=== PATIENT | male | born 1935 | race African-American/Black ===

== ENCOUNTER 2016-10-09 17:35 | Inpatient (IN) | payer MEDICARE, OTHER ==
[2016-10-09 20:14] LABS: Hematocrit 47 % (42-52); Hemoglobin 15.6 g/dl (14.0-18.0); Mean Corpuscular HGB Conc 33 g/dl (31-36); Mean Corpuscular Hemoglobin 32 pg (27-31); Mean Corpuscular Volume 98 fL (80-94); Mean Platelet Volume 8 um3 (7.4-10.4); Red Blood Count 4.83 10^6/ul (4.0-5.4); Red Cell Distribution Width 23 % (10.5-15); White Blood Count 6.3 10^3/ul (3.5-10.8)
[2016-10-09 20:15] LABS: Comments Flag Yes
[2016-10-09 20:16] LABS: Add Diff/Slide Review? Slide Review Added
[2016-10-09] MEDS: NS 0.9% 1000 ML* 1,000 ML IV ONE (20:21)
[2016-10-09 20:28] LABS: ALT 9 U/L (7-52); Albumin 2.3 g/dL (3.2-5.2); Alkaline Phosphatase 68 U/L (34-104); BUN/Creatinine Ratio 13.3 (8-20); Blood Urea Nitrogen 15 mg/dL (6-24); C Reactive Protein 9.76 mg/L (< 5.00); CO2 Carbon Dioxide 21 mmol/L (22-32); Chloride 106 mmol/L (101-111); EGFR African American 80.3 (>60); EGFR Non-African American 62.4 (>60); Globulin 3.5 g/dL (2-4); Glucose 115 mg/dL (70-100); Lipase < 10 U/L (11.0-82.0); Sodium 134 mmol/L (133-145); Total Protein 5.8 g/dL (6.4-8.9); Troponin I 0.01 ng/mL (<0.04)
--- NOTE | 2016-10-09 21:23 | RAD ---
INDICATION: Abdominal pain. COMPARISON: Comparison is made with a prior chest x-ray study from July 21, 2016. TECHNIQUE: A portable view of the chest was obtained. FINDINGS: Cardiac and mediastinal contours appear to be within normal limits. There is a power port central venous catheter present on the right side. The catheter tip projects overlying the superior vena cava. There are numerous bilateral pulmonary nodules which have increased in size and number from the prior study. There has been resolution of the previously noted trace left pleural effusion. IMPRESSION: MULTIPLE BILATERAL PULMONARY NODULES INCREASED IN SIZE FROM THE PRIOR STUDY.
[2016-10-09] MEDS ORDERED: Iohexol 300* (CONTRAST) 10 ML SDV IV ONE (22:04)
[2016-10-10] MEDS ORDERED: NS 0.9% 1000 ML* 1,000 ML IV SCH ×2 (00:45→09:45)
[2016-10-10 00:56] LABS: Magnesium 1.6 mg/dL (1.9-2.7)
[2016-10-10 00:57] LABS: Urine Bacteria Absent (Absent); Urine Bilirubin Negative (Negative); Urine Glucose Negative (Negative); Urine Nitrite Negative (Negative)
--- NOTE | 2016-10-10 01:05 | ED ---
rocio Le Timothy, scribed for Denny Martinez on 10/09/16 at 1945 . Abdominal Pain/Male - HPI Summary HPI Summary: Nathan Lerner Jr, is an 80 yo male presenting to [facility] with 4/10 lower abdominal pain for the past week. Pt has a Hx of abdominal hernia and also c/o 10 lb. weight loss over the past 10 days. He is c/o loss of appetite as well. 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 Pt is passing excessive gas, but had diarrhea today, which is his baseline. Pt also complains of penile meatus inflammation since the beginning of August, and congested cough. He states his diarrhea is not as bad when he lies on his left side. Pt is on xerelto. Pt states he noticed he had constant diarrhea and weakness since his hospital visit in late august. His MHx includes inguinal hernia repair 2013, Afib, diuretic use, HTN, cardioversion . Surgery performed 04/2015. Last chemotherapy was on 09/09/16, and was 8 grams. His cancer is being followed up in [place] and in [place]. - History of Current Complaint Chief Complaint: Nicole Stated Complaint: GROIN PAIN, UNABLE TO EAT Time Seen by Provider: 10/09/16 19:48 Hx Obtained From: Patient Onset/Duration: Sudden Onset, Lasting Hours, Still Present Timing: Constant Severity Initially: Moderate Severity Currently: Moderate Pain Intensity: 4 Pain Scale Used: 0-10 Numeric Location: Diffuse - lower Radiates: No Alleviating Factor(s): Position - left hand side lying down Associated Signs And Symptoms: Positive: Cough, Decreased Appetite, Diarrhea, Other - gas, penile meatus inflammation, weight loss ( 1lb. per day for 10 days) - Allergies/Home Medications Allergies/Adverse Reactions: Allergies Allergy/AdvReac Type Severity Reaction Status Date / Time Dofetilide [From Tikosyn] AdvReac Severe See Comment Verified 10/10/16 00:06 PMH/Surg Hx/FS Hx/Imm Hx Endocrine/Hematology History: Reports: Hx Anticoagulant Therapy - XARELTO, Hx Anemia - iron deficiency Denies: Hx Diabetes, Hx Thyroid Disease, Hx Unexplained Bleeding Cardiovascular History: Reports: Hx Congestive Heart Failure - ACUTE DIASTOLIC CHF, Hx Hypertension, Other Cardiovascular Problems/Disorders - a-fib, cardiac arrhythmia Denies: Hx Deep Vein Thrombosis, Hx Hypercholesterolemia, Hx Myocardial Infarction, Hx Pacemaker/ICD, Hx Peripheral Vascular Disease Respiratory History: Reports: Hx Lung Cancer, Hx Pneumonia, Other Respiratory Problems/Disorders - PNA Denies: Hx Asthma, Hx Chronic Obstructive Pulmonary Disease (COPD), Hx Pulmonary Embolism GI History: Reports: Hx Diverticulosis, Hx Obstructive Bowel Denies: Hx Gall Bladder Disease, Hx Gastroesophageal Reflux Disease, Hx Gastrointestinal Bleed, Hx Ulcer, Hx Urosepsis History: Reports: Hx Benign Prostatic Hyperplasia Denies: Hx Kidney Stones, Hx Renal Disease Musculoskeletal History: Reports: Hx Tendonitis - 1978 ACHILLES TENDONITIS - NO PROBLEMS NOW Denies: Hx Arthritis, Hx Osteoporosis Sensory History: Reports: Hx Contacts or Glasses Denies: Hx Cataracts, Hx Glaucoma, Hx Hearing Aid, Hx Hearing Problem Opthamlomology History: Reports: Hx Contacts or Glasses Denies: Hx Cataracts, Hx Glaucoma Neurological History: Denies: Hx Dementia, Hx Headaches, Hx Migraine, Hx Seizures, Hx Transient Ischemic Attacks (TIA) Psychiatric History: Denies: Hx Anxiety, Hx Depression, Hx Schizophrenia, Hx Bipolar Disorder - Cancer History Cancer Type, Location and Year: Small bowel 04/2015 Hx Chemotherapy: Yes - Surgical History Surgery Procedure, Year, and Place: Osteoma removed 1953 RIGHT [facility]. LEFT INGUINAL REPAIR W/MESH. 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 ERCP with biliary sphincterotomy and stent 11/29/2015. Right inguinal hernia repair 08/2015 Hx Anesthesia Reactions: No Infectious Disease History: No Infectious Disease History: Reports: Hx Shingles Denies: Hx Hepatitis, Hx Human Immunodeficiency Virus (HIV), Traveled Outside the [place] in Last 30 Days - Family History Known Family History: Positive: Hypertension Negative: Cardiac Disease, Diabetes Family History: FHx of CVA - Social History Alcohol Use: None Substance Use Type: Reports: None Hx Tobacco Use: No Smoking Status (MU): Never Smoked Tobacco Amount Used/How Often: - PIPE AND CIGAR Have You Smoked in the Last Year: No Review of Systems Constitutional: Negative Eyes: Negative ENT: Negative Cardiovascular: Negative Positive: Cough - congested Positive: Abdominal Pain, Diarrhea - baseline, Other - loss of appetite, weight loss Genitourinary: Other - penile meatus inflammation Musculoskeletal: Negative Skin: Negative Neurological: Negative Psychological: Normal All Other Systems Reviewed And Are Negative: Yes Physical Exam Triage Information Reviewed: Yes Vital Signs On Initial Exam: Initial Vitals Temp Pulse Resp BP Pulse Ox 98.9 F 78 20 143/96 100 10/09/16 17:44 10/09/16 17:44 10/09/16 17:44 10/09/16 17:44 10/09/16 17:44 Vital Signs Reviewed: Yes Appearance: Positive: Well-Appearing, No Pain Distress, Well-Nourished Skin: Positive: Warm, Skin Color Reflects Adequate Perfusion, Dry Head/Face: Positive: Normal Head/Face Inspection Eyes: Positive: EOMI, NATI ENT: Positive: Normal ENT inspection Neck: Positive: Supple, Nontender Respiratory/Lung Sounds: Positive: Clear to Auscultation, Breath Sounds Present Cardiovascular: Positive: RRR, Pulses are Symmetrical in both Upper and Lower Extremities Abdomen Description: Positive: Soft. Negative: Nontender - diffuse abdominal tenderness Bowel Sounds: Positive: Present Musculoskeletal: Positive: Normal, Strength/ROM Intact Neurological: Positive: Normal, Sensory/Motor Intact, Alert, Oriented to Person Place, Time Psychiatric: Positive: Normal Diagnostics - Vital Signs Vital Signs Temp Pulse Resp BP Pulse Ox 10/09/16 19:33 97.9 F 75 16 130/90 100 10/09/16 18:37 98.7 F 75 16 141/84 100 10/09/16 17:44 98.9 F 78 20 143/96 100 - Laboratory Lab Results: Lab Results 10/09/16 10/09/16 10/09/16 Range/Units 20:05 20:05 20:05 WBC 6.3 (3.5-10.8) 10^3/ul RBC 4.83 (4.0-5.4) 10^6/ul Hgb 15.6 (14.0-18.0) g/dl Hct 47 (42-52) % MCV 98 H (80-94) fL MCH 32 H (27-31) pg MCHC 33 (31-36) g/dl RDW 23 H (10.5-15) % Plt Count 284 (150-450) 10^3/ul MPV 8 (7.4-10.4) um3 Neut % (Auto) 56.0 (38-83) % Lymph % (Auto) 22.6 L (25-47) % Concho % (Auto) 14.3 H (1-9) % Eos % (Auto) 6.8 H (0-6) % Baso % (Auto) 0.3 (0-2) % Absolute Neuts (auto) 3.5 (1.5-7.7) 10^3/ul Absolute Lymphs (auto) 1.4 (1.0-4.8) 10^3/ul Absolute Monos (auto) 0.9 H (0-0.8) 10^3/ul Absolute Eos (auto) 0.4 (0-0.6) 10^3/ul Absolute Basos (auto) 0 (0-0.2) 10^3/ul Absolute Nucleated RBC 0.01 10^3/ul Nucleated RBC % 0.1 INR (Anticoag Therapy) 1.47 H (0.89-1.11) APTT 26.3 (26.0-36.3) seconds Sodium 134 (133-145) mmol/L Potassium TNP Chloride 106 (101-111) mmol/L Carbon Dioxide 21 L (22-32) mmol/L Anion Gap TNP BUN 15 (6-24) mg/dL Creatinine 1.13 (0.67-1.17) mg/dL Est GFR ( Amer) 80.3 (>60) Est GFR (Non-Af Amer) 62.4 (>60) BUN/Creatinine Ratio 13.3 (8-20) Glucose 115 H (70-100) mg/dL Lactic Acid (0.5-2.0) mmol/L Calcium 8.0 L (8.6-10.3) mg/dL Magnesium TNP Total Bilirubin 0.40 (0.2-1.0) mg/dL AST TNP ALT 9 (7-52) U/L Alkaline Phosphatase 68 (34-104) U/L Troponin I 0.01 (<0.04) ng/mL C-Reactive Protein 9.76 H (< 5.00) mg/L B-Natriuretic Peptide ( - 100) pg/mL Total Protein 5.8 L (6.4-8.9) g/dL Albumin 2.3 L (3.2-5.2) g/dL Globulin 3.5 (2-4) g/dL Albumin/Globulin Ratio 0.7 L (1-3) Lipase < 10 L (11.0-82.0) U/L Urine Color Urine Appearance Urine pH (5-9) Ur Specific [place] (1.010-1.030) Urine Protein (Negative) Urine Ketones (Negative) Urine Blood (Negative) Urine Nitrate (Negative) Urine Bilirubin (Negative) Urine Urobilinogen (Negative) Ur Leukocyte Esterase (Negative) Urine WBC (Auto) (Absent) Urine RBC (Auto) (Absent) Ur Squamous Epith Cells (Absent) Urine Bacteria (Absent) Hyaline Casts (Absent) Urine Glucose (Negative) Urine Ascorbic Acid (Negative) 10/09/16 10/09/16 10/10/16 Range/Units 20:05 20:05 00:10 WBC (3.5-10.8) 10^3/ul RBC (4.0-5.4) 10^6/ul Hgb (14.0-18.0) g/dl Hct (42-52) % MCV (80-94) fL MCH (27-31) pg MCHC (31-36) g/dl RDW (10.5-15) % Plt Count (150-450) 10^3/ul MPV (7.4-10.4) um3 Neut % (Auto) (38-83) % Lymph % (Auto) (25-47) % Concho % (Auto) (1-9) % Eos % (Auto) (0-6) % Baso % (Auto) (0-2) % Absolute Neuts (auto) (1.5-7.7) 10^3/ul Absolute Lymphs (auto) (1.0-4.8) 10^3/ul Absolute Monos (auto) (0-0.8) 10^3/ul Absolute Eos (auto) (0-0.6) 10^3/ul Absolute Basos (auto) (0-0.2) 10^3/ul Absolute Nucleated RBC 10^3/ul Nucleated RBC % INR (Anticoag Therapy) (0.89-1.11) APTT (26.0-36.3) seconds Sodium (133-145) mmol/L Potassium 3.6 Chloride (101-111) mmol/L Carbon Dioxide (22-32) mmol/L Anion Gap BUN (6-24) mg/dL Creatinine (0.67-1.17) mg/dL Est GFR ( Amer) (>60) Est GFR (Non-Af Amer) (>60) BUN/Creatinine Ratio (8-20) Glucose (70-100) mg/dL Lactic Acid 1.9 (0.5-2.0) mmol/L Calcium (8.6-10.3) mg/dL Magnesium 1.6 L Total Bilirubin (0.2-1.0) mg/dL AST 20 ALT (7-52) U/L Alkaline Phosphatase (34-104) U/L Troponin I (<0.04) ng/mL C-Reactive Protein (< 5.00) mg/L B-Natriuretic Peptide 50 ( - 100) pg/mL Total Protein (6.4-8.9) g/dL Albumin (3.2-5.2) g/dL Globulin (2-4) g/dL Albumin/Globulin Ratio (1-3) Lipase (11.0-82.0) U/L Urine Color Urine Appearance Urine pH (5-9) Ur Specific [place] (1.010-1.030) Urine Protein (Negative) Urine Ketones (Negative) Urine Blood (Negative) Urine Nitrate (Negative) Urine Bilirubin (Negative) Urine Urobilinogen (Negative) Ur Leukocyte Esterase (Negative) Urine WBC (Auto) (Absent) Urine RBC (Auto) (Absent) Ur Squamous Epith Cells (Absent) Urine Bacteria (Absent) Hyaline Casts (Absent) Urine Glucose (Negative) Urine Ascorbic Acid (Negative) 10/10/16 Range/Units 00:25 WBC (3.5-10.8) 10^3/ul RBC (4.0-5.4) 10^6/ul Hgb (14.0-18.0) g/dl Hct (42-52) % MCV (80-94) fL MCH (27-31) pg MCHC (31-36) g/dl RDW (10.5-15) % Plt Count (150-450) 10^3/ul MPV (7.4-10.4) um3 Neut % (Auto) (38-83) % Lymph % (Auto) (25-47) % Concho % (Auto) (1-9) % Eos % (Auto) (0-6) % Baso % (Auto) (0-2) % Absolute Neuts (auto) (1.5-7.7) 10^3/ul Absolute Lymphs (auto) (1.0-4.8) 10^3/ul Absolute Monos (auto) (0-0.8) 10^3/ul Absolute Eos (auto) (0-0.6) 10^3/ul Absolute Basos (auto) (0-0.2) 10^3/ul Absolute Nucleated RBC 10^3/ul Nucleated RBC % INR (Anticoag Therapy) (0.89-1.11) APTT (26.0-36.3) seconds Sodium (133-145) mmol/L Potassium Chloride (101-111) mmol/L Carbon Dioxide (22-32) mmol/L Anion Gap BUN (6-24) mg/dL Creatinine (0.67-1.17) mg/dL Est GFR ( Amer) (>60) Est GFR (Non-Af Amer) (>60) BUN/Creatinine Ratio (8-20) Glucose (70-100) mg/dL Lactic Acid (0.5-2.0) mmol/L Calcium (8.6-10.3) mg/dL Magnesium Total Bilirubin (0.2-1.0) mg/dL AST ALT (7-52) U/L Alkaline Phosphatase (34-104) U/L Troponin I (<0.04) ng/mL C-Reactive Protein (< 5.00) mg/L B-Natriuretic Peptide ( - 100) pg/mL Total Protein (6.4-8.9) g/dL Albumin (3.2-5.2) g/dL Globulin (2-4) g/dL Albumin/Globulin Ratio (1-3) Lipase (11.0-82.0) U/L Urine Color Yellow Urine Appearance Clear Urine pH 5.0 (5-9) Ur Specific [place] 1.020 (1.010-1.030) Urine Protein 1+(30 mg/dl) H (Negative) Urine Ketones Negative (Negative) Urine Blood Negative (Negative) Urine Nitrate Negative (Negative) Urine Bilirubin Negative (Negative) Urine Urobilinogen Negative (Negative) Ur Leukocyte Esterase Negative (Negative) Urine WBC (Auto) Trace(0-5/hpf) (Absent) Urine RBC (Auto) Trace(0-2/hpf) (Absent) Ur Squamous Epith Cells Present H (Absent) Urine Bacteria Absent (Absent) Hyaline Casts Present H (Absent) Urine Glucose Negative (Negative) Urine Ascorbic Acid * H (Negative) Result Diagrams: 10/09/16 20:05 10/10/16 00:10 Lab Statement: Any lab studies that have been ordered have been reviewed, and results considered in the medical decision making process. - Radiology CXR Xray Interpretation: Positive (See Comments) - IMPRESSION: MULTIPLE BILATERAL PULMONARY NODULES INCREASED IN SIZE FROM THE PRIOR STUDY. Radiology Interpretation Completed By: Radiologist - CT A/P CT Interpretation: Positive (See Comments) - Thickened distal and terminal ileum and additional loops of moderately thickened bilateral lower quadrant small bowel, probably infectious or inflammatory enteritis. No pneumatosis, but ischemic enteritis not excluded; correlate clinically. Nonthickened, nondilated short segment of transverse colon projecting into left periumbilical hernia. No bowel obstruction, colitis, or free air. Normal appendix. Small bilateral pleural effusions resolved since 03/17/16. Small ascites, increased. Persisting hepatic, lung, and left adrenal nodules consistent with metastatic disease. Biliary stent and associated pneumobilia, including gallbladder lumen. Periportal edema. Unremarkable pancreas and kidneys. Bladder wall thickening due to cystitis, underdistension or hypertrophy. Enlarged prostate. Moderate left and right hydroceles. Patulous left inguinal canal containing fat. Small hiatal hernia. CT Interpretation Completed By: Radiologist - imaging electronics technology instructor - EKG 2020 Cardiac Rate: NL - 65 BPM EKG Interpretation: NSR @ 65 BPM, no acute changes Re-Evaluation - Re-Evaluation First Eval Re-Evaluation Time: 00:02 Change: Unchanged Comment: Discussed Pt's condition and his PMHx. Second Eval Re-Evaluation Time: 00:28 Change: Unchanged Comment: Discussed recommendations of Dr. Sy, Pt is agreeable with current disposition. Abdominal Pain Fem Course/Dx - Course Assessment/Plan: Nathan Lerner is an 80 yo male presenting to [facility] with 4/10 abd pain, 10lb weight loss in 10 days, and penile meatus inflammation with a Hx of small bowel cancer and clinical trial treatment, his last chemotherapy treatment being 3 days ago. After review of his CT A/P (see documentation) and review of his lab work, as well as discussion with Dr. Knutson and Dr. Sy, he will be admitted to [facility] for further evaluation and treatment. - Diagnoses Differential Diagnosis/HQI/PQRI: Appendicitis, Bowel Obstruction, Diverticulitis , Ischemic Bowel, Pancreatitis, Renal Colic, Ureteral Stone Provider Diagnoses: Abdominal pain, Colon cancer, Balanitis, Metastasis, Colitis - Provider Notifications Discussed Care Of Patient With: 0000 - Dr. Knutson (hospitalist) - Discussed Pt condition and results of CT A/P, agrees to admit Pt for further evaluation and treatment. 0027 - Dr. Sy (surgery) - Recommends admission for Pt. 0043 - Dr. Knutson (hospitalist) - agrees to admit Pt. Instructed by Provider To: Admit As Inpatient Discharge - Discharge Plan Condition: Stable Disposition: ADMITTED TO [facility] Referrals: Chris Veras MD [Primary Care Provider] - The documentation as recorded by the rocio corado Timothy accurately reflects the service I personally performed and the decisions made by Juan sequeira Emmanuel.
--- NOTE | 2016-10-10 02:58 | CONSULT ---
Consult Consult: Called ~0045 to admit. Mr Lerner has written a letter previously to CEO Maria Luisa requesting I not evaluate or treat him in any way. As such, his wishes will be honored & his case referred to the lead physician in AM.
[2016-10-10] MEDS ORDERED: Acetaminophen TAB* 325 MG PO ONE (05:20)
[2016-10-10] MEDS: NS 0.9% 1000 ML* 1,000 ML IV ONE (05:26)
--- NOTE | 2016-10-10 07:49 | RAD ---
INDICATION: Metastatic liver disease. Bacteremia. COMPARISON: CT abdomen pelvis a 2015 TECHNIQUE: Axial source images were obtained from the hemidiaphragms to the symphysis pubis following administration of oral and intravenous contrast. 85 mL Omnipaque 300 was utilized. Coronal and sagittal reconstructed images were acquired. Lung bases: There are multiple pulmonary masses in this patient with known metastatic cancer. There is no significant interval change. There are no significant effusions Liver: There are multiple hepatic masses consistent with metastasis. There may be minimal improvement. There is pneumobilia with biliary stent in place, unchanged. There is mild intrahepatic ductal dilatation as well as periportal edema, unchanged. Gallbladder: There are no calcified gallstones. There is no evidence of wall thickening or pericholecystic fluid. Spleen: The spleen is normal in size. There are no masses. Pancreas: There is no focal pancreatic mass. The pancreatic duct is mildly prominent but the appearance is unchanged. Adrenal glands: 2.5 x 2.1 cm left adrenal mass without significant change. The segments consistent with metastasis. The right adrenal gland is unremarkable. Kidneys: The kidneys are normal in size and position. There are prompt nephrograms and there is prompt excretion bilaterally. There are no renal parenchymal masses. There is no evidence of nephrolithiasis. Adenopathy: Multiple small mesenteric lymph nodes and mesenteric edema likely related to mesenteric involvement perhaps with omental cake formation. Fluid collections: There is a moderate amount of ascites which appears slightly increased. Vessels:There are atherosclerotic changes involving the aorta and iliac vessels. There is no focal aneurysm. The IVC appears normal. GI tract: There is some edematous loops of small bowel left mid abdomen. The upper and lower GI tract otherwise unchanged. There is no obstruction. Pelvic organs: The prostate is enlarged Bladder: Bladder wall appears mildly thickened. Abdominal and pelvic soft tissues: Subcutaneous edema. Ventral hernia without obstructive findings. Fat-containing right inguinal hernia. Osseous structures: There are no acute osseous findings. Other: None IMPRESSION: 1. Multiple pulmonary parenchymal masses without significant change. 2. Multiple hepatic metastasis perhaps with minimal improvement. 3. Left adrenal mass, unchanged 4. Moderate ascites, slightly increased 5. Mesenteric edema and mild nodularity. Peritoneal implants are not excluded. 6. Small ventral hernia without obstruction. 7. Mildly edematous appearance of small bowel left mid abdomen 8. Prostatic enlargement with trabeculated bladder
[2016-10-10] MEDS ORDERED: Ondansetron INJ* 2 MG/ML VIAL IV PRN (09:43)
[2016-10-10] MEDS ORDERED: Benzonatate CAP* 100 MG PO PRN (09:53)
[2016-10-10] MEDS ORDERED: Loperamide CAP* 2 MG PO PRN (09:56)
[2016-10-10] MEDS ORDERED: Enoxaparin(*) 40 MG/0.4 ML SYR SUBCUT SCH (10:00)
--- NOTE | 2016-10-10 11:12 | RAD ---
INDICATION: Assess lung metastasis COMPARISON: CT November 22, 2015 TECHNIQUE: Noncontrast source images were obtained from the thoracic inlet to the hemidiaphragms. Coronal and sagittal reconstructed images were acquired. The visualized neck to include the thyroid appear normal. Chest wall: There are no acute abnormalities of the bony thorax or chest wall. There is a right port catheter. There is no supraclavicular, infraclavicular, or axillary lymphadenopathy. Lungs : There are too numerous to count pulmonary parenchymal metastasis. There is a subtle progression in the size of many lesions. Other lesions are stable. The pulmonary interstitium appears normal. There are no endobronchial lesions. Cardiomediastinal structures: There is mild cardiomegaly. There is no pericardial effusion. There is no evidence of aortic aneurysm or dissection. There is diffuse aortic ectasia. The pulmonary vessels appear normal. There is no mediastinal or hilar adenopathy. The esophagus appears normal. Pleura : There are no pleural-based masses (exclusive of numerous parenchymal lesions which abut the pleura) or effusions. Other: There are abdominal findings described on the recent CAT scan which include hepatic and adrenal metastasis, biliary stenting, and ascites as described in a separate report. IMPRESSION: SUBTLE INTERVAL PROGRESSION OF MANY OF THE PREVIOUSLY . DOCUMENTED PULMONARY METASTASIS
[2016-10-10] MEDS: Amiodarone TAB* 200 MG PO SCH (12:13)
[2016-10-10] MEDS: Metoprolol Tartrate TAB* 25 MG PO SCH (12:13)
[2016-10-10] MEDS: NS 0.9% 1000 ML* 1,000 ML IV SCH ×2 (12:13→20:18)
[2016-10-10] MEDS: Rivaroxaban TAB(*) 20 MG TAB PO SCH (12:13)
[2016-10-10] MEDS: KCL 20 MEQ/100 ML IVPREMIX* 20 MEQ/100 ML BAG IV SCH ×2 (12:14→15:53)
--- NOTE | 2016-10-10 13:46 | PN ---
Progress Note - Progress Note Note: Brief Surgery Note: (full consult dictated) 80 yo male w/ met adenoca of SB w/ ~ 10d of feeling weak w/ intermittent upper abd discomfort and assoc nausea and anorexia. No vomiting. He's been able to kacey smoothies that his son prepares for him. He notes a 10 lb wt loss over the past 10 d. He's had 3-5 loose stools daily since mid Aug with no recent change. He's been passing flatus. Abd pain is triggered and/or exacerbated by eating and sometimes by position. There is a new ventral hernia (since 02/2016 CT) which was noted by his surgeon at [facility] in Jun. and for which no intervention was recommended. Labs and CTs of chest, abd, and pelvis were reviewed. Patient was examined. Abd: BS+. Soft, nontender to moderate palpation. Midline ventral hernia (just below umbilicus) which is easily reducible to a defect of ~ 2.5-3 cm. It is nontender. The CT also reveals a fat-containing Left inguinal hernia, which is palpable, nontender, and not completely reducible by my exam. There is otherwise contrast in the cecum indicating lack of obstruction. There are other changes c/w diffuse metastatic dz. A/P: abd pain, anorexia, wt loss semi-acutely in setting of diffusely metastatic disease; no apparent cause that could be correctable by surgery. Would consider moving diet up as tolerated. Discussed w/ Dr. Barrios who will also be following.
[2016-10-10] MEDS ORDERED: Lidocaine 2% JELLY* 6 ML JELLY TOPICAL PRN (13:56)
[2016-10-10] MEDS ORDERED: Piperac/Tazob 3.375 gm in NS* 3.375 GM/100 ML BAG IVPB ONE (21:00)
--- NOTE | 2016-10-10 21:56 | CONS ---
CC: [facility]; Dr. Patel, [facility] [place]; Dr. Rai Tolbert MD [place], [place] SURGICAL CONSULT NOTE: DATE OF CONSULT: 10/10/16 ATTENDING SURGEON: Dr. Aníbal Barrios. CHIEF COMPLAINT: Abdominal pain, nausea, anorexia, and weight loss. HISTORY OF PRESENT ILLNESS: We were asked to see this 80-year-old male who is known to us from [facility] and who has a history of metastatic small bowel adenocarcinoma, who presented to the ED evening with about a 10-day history of generalized weakness accompanied by upper abdominal pain. The upper abdominal pain has remained intermittent with associated nausea and anorexia. He has not vomited. Pain can be entirely absent at times. It does seem to be exacerbated by eating and someti mes by position. He continues to have 3 to 5 loose stools per day, which has been his baseline maurice xander over the last month or so. There has been no recent change in that. There has been no blood pe r rectum. He has been tolerating smoothies at home that his son prepares for him. He notes about a 10-pound weight loss over the past 10 days. His primary reasons for presenting were his weight los s and his generalized weakness. PAST MEDICAL HISTORY: Significant for small bowel adenocarcinoma (status post small bowel resection , April 2015, done at [facility]), atrial fibrillation, hypertension, and GERD. 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 He has also been continued on Xeloda (2 weeks on, 1 week off up to this admission). PAST SURGICAL HISTORY: Other surgeries include right inguinal herniorrhaphy, August 2015; left in guinal herniorrhaphy with mesh, 2013. MEDICATIONS: On admission, include: 1. Amlodipine. 2. Amiodarone. 3. Xeloda. 4. Xarelto. 5. Benzonatate. 6. Metoprolol. FAMILY HISTORY: As per his admission history and physical. SOCIAL HISTORY: As per his admission history and physical. REVIEW OF SYSTEMS: No additions to the HPI or past medical history as noted above. PHYSICAL EXAM: Height 6 feet, weight 140 pounds, BMI 19, temperature 97.5, blood pressure 115/80, p ulse 101, respirations 18, room air saturation 100%. General: Thin, but otherwise well-appearing, A frican Iraqi male, in no acute distress. Skin: Warm and dry. HEENT: Mucous membranes somewhat dry. Lungs: Clear to auscultation anteriorly and laterally. Heart: Rapid and irregular consisten t with atrial fibrillation. Abdomen: Flat and relatively nondistended. There are multiple surgica l incisions including midline incision. When the patient strains across, there is an obvious visibl e bulge at the midline and just to the left and below the umbilicus. Bowel sounds are present. Abd omen is soft with no significant tenderness to [id number] palpation. The area of the ventral hernia is nontender and easily reducible down to defect of about 2.5 to 3 cm. There was noted to be a fat-containing left inguinal hernia and this is palpable, but is nontender and not completely red ucible by my exam. There is no hernia noted on the right. DIAGNOSTIC STUDIES/LAB DATA: Shows a white blood cell count of 6300, hemoglobin of 15.6. Normal el ectrolytes, BUN and creatinine. Normal lactic acid at 1.9. Magnesium slightly lower at 1.6. CRP 10 . Albumin 2.3, which is consistent with previous. Lipase is normal. CT scan of the abdomen and pelvis and chest were all reviewed. CT of the chest notable for too nume nemesio to count lesions consistent with metastatic disease. There are multiple hepatic masses. There is a biliary stent in place. There is mass at the left renal consistent with metastatic disease. T here are multiple mesenteric lymph nodes and edema noted with a question of omental caking. There i s a moderate amount of ascites, which has increased from his last study here from February 2015. Ther e is some edema of small bowel loops in the left mid abdomen, the significance of which is unclear. There does appear to be contrast in the cecum. There is a ventral hernia as noted containing what a ppears to be a partial loop of sigmoid colon. There is a fat-containing left inguinal hernia. IMPRESSION: Abdominal pain with anorexia, nausea, and weight loss, apparently not related to any reynolds rgically correctible problem. PLAN: If the patient tolerates, we would allow advancement of diet to at least full liquid. The ca se was discussed with Dr. Barrios, who will also follow. At this point, no surgical intervention [place] [id number]/[facility] #: [id number]
[2016-10-11] MEDS: Piperac/Tazob 3.375 gm in NS* 3.375 GM/100 ML BAG IVPB SCH ×3 (01:41→17:45)
--- NOTE | 2016-10-11 02:15 | HP ---
HISTORY AND PHYSICAL: DATE OF ADMISSION: 10/10/16 REASON FOR ADMISSION: Abdominal pain. 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 He was recently seen on 09/19/ in second opinion at [facility], in [place], [place] , at that time he was considering whether or not to go on a clinical trial of immunotherapy. He developed decreased desire to eat without any vomiting, although did have significant nausea. He has had diarrhea for about 3 to 5 times per day with occasionally formed stools, has been using Imodium, but no more than 1 to 2 times per day recently. He has not had any associated back pain. He reports a weight loss of about 10 pounds over the last 10 days and almost no caloric intake recently. He has been taking maybe about 2 cans of Boost per day and occasionally some Pedialyte. He did eat lunch last Sunday, but has had no solid food since. He denies any fevers, sweats, or chills, but does feel somewhat cold without rigors. Did have an incessant cough in the past , but this has been decreased over the past month or two on his current chemotherapy regimen. He presented to the emergency room last evening when the symptoms continued to worsen. The abdominal pain is mostly on the left side. PAST MEDICAL HISTORY: December of 2014 presented with a small bowel obstruction with the transition point in the distal ileum. He was treated conservatively, but symptoms recurred. He was found to have a circumferential mass at the transition point and had a surgery performed at [facility] on 05/06/15. This revealed a small bowel adenocarcinoma. He has an ileoileal anastomosis, omentoplasty, the excision of the nodule in the lower third of the liver. Pathology revealed invasive small bowel carcinoma, which was mildly differentiated. With angiolymphatic invasion, 6/13 lymph nodes were involved. Clinical biopsy was negative for malignancy. The patient was staged as T4N2M0, stage IIIB small bowel adenocarcinoma. He was seen in consultation at that time at [facility], [facility], and also here in [place]. In June of 2015, he was also seen at [facility] by Dr. Patel. Adjuvant 5FU and leucovorin was recommended. The patient declined initial chemotherapy, preferring to defer treatment while continuing to work at [employer]. He underwent a right inguinal hernia repair in August of 2015. Following this hernia repair, he developed increasing back tightness and developed pain and discomfort, decreased energy, decreased appetite, weight loss, cough, and shortness of breath. CT scan in August of 2015 revealed innumerable pulmonary metastases as well as hepatomegaly. In November of 2015, his bilirubin was 18.8. He underwent an ERCP with stent placement. Subsequent to this, he was treated with Avastin and 5FU along with oxaliplatin. He continued on the FOLFOX and bevacizumab through 12 cycles through June of 2016. In May of 2016, he was hospitalized with sepsis post ERCP. In June of 2016, he was switched to Xeloda and Avastin to simplify his treatment plan. He received some of his Avastin here and some of it in [facility]. He has had a total of 3 cycles since on this regimen. His Xeloda has been dosed at 1000 mg b.i.d. due to age. He reports he once recently had Xeloda 2 days ago. He was scheduled to stop it on 10/12/16, but it was stopped early due to inability to tolerate pretty much anything by mouth. He last received his Avastin approximately a week and a half ago and is scheduled to receive again on . Past medical history otherwise significant for atrial fibrillation, hypertension , congestive heart failure, status post left inguinal hernia repair, status post right inguinal hernia repair. No diabetes, no [place] or CVA. MEDICATIONS: 1. Amiodarone 100 mg daily. 2. Amlodipine 5 mg daily. 3. Metoprolol 50 mg daily. 4. Rivaroxaban 20 mg daily. 5. Tessalon Perles 1 t.i.d. p.r.n. 6. Xeloda as discussed above. ALLERGIES: None. FAMILY HISTORY: Prostate cancer in both his brother and his father. No other family history of malignancies. SOCIAL HISTORY: He has never been a smoker. 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 He has 5 children, he has a good support network. REVIEW OF SYSTEMS: As discussed above. In addition, he has noticed some inflammation at meatus of the penis since about 08/30/16. Reports this is not affecting urination. His energy level has been down. Recently, he has been eating very poorly. No neurologic complaints. Not bothered by the ongoing atrial fibrillation in terms of shortness of breath or chest pain. Mild ongoing swelling in the right arm. Some difficulties with sleep. Mostly doing okay until the present time. PHYSICAL EXAMINATION GENERAL: An 80-year-old male, in no acute distress. VITAL SIGNS: Blood pressure 117/68, pulse 110, and temperature 98.9 on arrival and currently 97.9. HEENT: PERRL, EOMI. No erythema or exudates. No palpable cervical, supraclavicular, or axillary adenopathy. LUNGS: Clear. HEART: Irregularly irregular rhythm without murmurs, rubs, or gallops. ABDOMEN: Soft, nontender without masses or organomegaly. EXTREMITIES: No clubbing, cyanosis, or edema. No significant petechiae. No significant PPE changes. DIAGNOSTIC STUDIES/LAB DATA: CBC with a white count of 6300, hematocrit 47, hemoglobin 15.6, platelet count 284,000 with an essentially normal differential with 56% neutrophils, 23% lymphocytes, 15% monocytes, 7% eosinophils. Chemistry studies: Sodium 134, potassium 3.6, chloride 106, bicarb 21, BUN 15, creatinine 1.1, glucose 115, lactic acid 1.9, magnesium 1.6. LFTs within the normal range. C- reactive protein 9.7. Lipase is undetectable. CT scan performed of the abdomen and pelvis reveals significant number of liver metastases, which may be minimally improved from the previous CT scan of last fall. There is pneumobilia within the biliary stent in place, which is unchanged. Multiple small lymph nodes are seen in the mesentery and perhaps some omental caking, multiple nodules are seen in the lung bases. The lung nodules are without significant change as is the abnormalities within the mesentery. There is a moderate amount of ascites, which is slightly increased. There is some mild edematous the small bowel, especially in the left mid abdomen. Chest x-ray is compared to that of June of 2016. It reveals some modest progression in terms of the pulmonary metastases, which have increased in size and in number. IMPRESSION AND PLAN: 1. An 80-year-old male with metastatic small bowel carcinoma, who has been on chemotherapy since November of 2015 with fluoropyrimidine and Avastin from the very beginning and at one point was on oxaliplatin, which was subsequently discontinued due to try and limit side effects. He presents now with markedly decreased appetite along with abdominal pain, although there is nothing significant on his physical exam in terms of the abdomen. This is certainly very possible that it is related to progressive disease in the abdomen. There are no acute abdominal findings. We will try to hydrate the patient, give him pain medications as needed, and try to slowly advance his diet. I have asked Surgery to see him, I do not believe there are any ischemic issues at the present time. We would like their opinion in this regard. Chemotherapy is currently on hold. 2. Atrial fibrillation, the patient will be maintained on his rivaroxaban and therefore will not need Lovenox. 3. There are no signs of infection at the present time. Blood cultures have been obtained and are pending. 4. History of hypertension, on multiple agents including amlodipine and beta blockers. Amlodipine will be held, the beta tano is to be continued for his rapid ventricular response to his atrial fibrillation. [id number]/[facility] #: [id number] MTDD
[2016-10-11] MEDS: Amiodarone TAB* 200 MG PO SCH (10:18)
[2016-10-11] MEDS: Metoprolol Tartrate TAB* 25 MG PO SCH (10:18)
[2016-10-11] MEDS: Rivaroxaban TAB(*) 20 MG TAB PO SCH (10:18)
--- NOTE | 2016-10-11 12:12 | PN ---
Progress Note - Progress Note SOAP: Subjective: []Not much different today. He still has abdominal pain and still diarrhea. Want to have lesion on penis addressed. PmHx: Xeloda and Avastin - Xeloda 1000 mg bid M- until end july - Changed to 2000 mg bid, d 1-14 of 08/2016 - Taking despite significant diarrhea - Presented with bloating and abdominal pain, 10 lb weight loss. Acetaminophen (Tylenol Tab*) 650 mg PO Q6H PRN PRN Reason: FEVER/PAIN Amiodarone HCl (Cordarone Tab*) 100 mg PO DAILY [facility] Last Admin: 10/11/16 10:18 Dose: 100 mg Benzonatate (Tessalon Cap*) 100 mg PO TID PRN PRN Reason: COUGH Sodium Chloride (Ns 0.9% 1000 Ml*) 1,000 mls @ 125 mls/hr IV PER RATE [facility] Last Admin: 10/10/16 20:18 Dose: 125 mls/hr Piperacillin Sod/Tazobactam Sod (Zosyn 3.375 Gm In Ns Premix*) 3.375 gm in 100 mls @ 25 mls/hr IVPB Q8H [facility] Last Admin: 10/11/16 10:17 Dose: 25 mls/hr Lidocaine HCl (Lidocaine 2% Jelly*) 1 applic TOPICAL Q4H PRN PRN Reason: PERIANAL PAIN Last Admin: 10/10/16 21:46 Dose: 1 applic Loperamide HCl (Imodium Cap*) 2 mg PO .SEE DIRECTIONS PRN PRN Reason: DIARRHEA Metoprolol Tartrate (Lopressor Tab*) 50 mg PO DAILY [facility] Last Admin: 10/11/16 10:18 Dose: 50 mg Ondansetron HCl (Zofran Inj*) 4 mg IV Q4H PRN PRN Reason: NAUSEA/VOMITING Last Admin: 10/11/16 04:04 Dose: 4 mg Rivaroxaban (Xarelto (*)) 20 mg PO DAILY [facility] Last Admin: 10/11/16 10:18 Dose: 20 mg Objective: [] Vital Signs Temp Pulse Resp BP Pulse Ox 98.0 F 64 20 139/73 98 10/10/16 23:37 10/10/16 23:37 10/10/16 23:37 10/10/16 23:37 10/10/16 23:37 HEENT - think, no oral lesions CTA, port on right RRR S1S2 Bloated, +BS, NT and no masses : ulceration and exudate tip of penis. Assessment: []80 year old with metastatic small bowl tumor who presents with bloating and diarrhea on Xeloda. Evaluation with CT scans shows stable disease from the fall but we do not have recent scans for comparison. He has positive blood culture with GNR, Cari Childs. Several issues: Plan: []1. Diarrhea and bacteremia. I suspect enteritis from Xeloda, Ddx also includes micro perforation from Avastin, progressive disease, C. diff. - Imodium - BRAT diet - Check stool for leukocytes, c diff - Hold Xeloda and Avastin - consultation ID re: + BC - Continue Zosyn 2. Ulceration of Penis. Now on Zosyn, will discuss with ID as well. 3. Small bowl tumor. Not sure if current therapy is effective. Will d/w Dr. Russ and send disk with CT scan. Can be done once he feels better. No therapy at this time. 4. He was self directed in chemotherapy dose and taking to much. Will discuss with Dr. Russ as well, close follow up when/if he re-starts. time with patient and chart 11:20 - 12:15
[2016-10-11 13:48] LABS: Hematocrit 43 % (42-52); Hemoglobin 14.1 g/dl (14.0-18.0); Mean Corpuscular HGB Conc 33 g/dl (31-36); Mean Corpuscular Hemoglobin 33 pg (27-31); Mean Corpuscular Volume 99 fL (80-94); Mean Platelet Volume 7 um3 (7.4-10.4); Red Blood Count 4.33 10^6/ul (4.0-5.4)
[2016-10-11 13:51] LABS: Comments Flag Yes
[2016-10-11 13:52] LABS: Red Cell Distribution Width 24 % (10.5-15)
[2016-10-11 14:03] LABS: BUN/Creatinine Ratio 9.1 (8-20); Calcium 7.3 mg/dL (8.6-10.3); EGFR African American 74.2 (>60); EGFR Non-African American 57.7 (>60); Potassium 3.6 mmol/L (3.5-5.0)
[2016-10-11 14:13] LABS: TSH (Thyroid Stimulating Horm) 10.27 mcIU/mL (0.34-5.60)
[2016-10-11] MEDS: NS 0.9% 1000 ML* 1,000 ML IV SCH ×2 (14:49→22:43)
[2016-10-11] MEDS: Nystatin OINT* 15 GM TOPICAL SCH (20:18)
--- NOTE | 2016-10-11 20:49 | CONS ---
CONSULTATION REPORT: DATE OF CONSULT: 10/11/16 REQUESTING PHYSICIAN: Dr. Santo. CONSULTING SERVICE: Infectious Disease. REASON FOR CONSULT: Anorexia, diarrhea, bacteremia. IMPRESSION: 1. A month of diarrhea, anorexia, and abdominal pain, now growing Sarwatfvenkat alvei in 1/4 blood culture bottles, a Clostridium difficile PCR was negative. Hafnia is sometimes seen with human disease including gastroenteritis, may be related to a gastrointestinal source. He has a port, so seeding the port is a consideration now given that it is a gram-negative jenni, low likelihood of persistent infection after antibiotics. 2. Desquamation of the skin over the tip of the glans of his penis with underlying impressive erythema, suspect a secondary fungal infection. As to the primary cause of the skin desquamation, differential diagnosis includes a fixed drug eruption or side effect of his chemotherapy. 3. Small bowel carcinoma with metastatic disease involving the liver and the lungs and possibly peritoneal implants, on Xeloda and Avastin. 4. Right chest port and a biliary stent. RECOMMENDATION: 1. Agree with Zosyn 3.375 g IV every 6 hours by extended infusion through the port to sterilize it. We will plan on a week's worth of antibiotics and monitor his GI symptoms to see if anything improves there while he is receiving the antibiotics. 2. Nystatin ointment for the tip of his penis. If that is not improving, I will consider asking Urology to evaluate him as well. It does not include urethritis or appear to involve the meatus at this point. HISTORY OF PRESENT ILLNESS: An 80-year-old man with metastatic small bowel cancer and chemotherapy, admitted with abdominal pain, diarrhea, and penile lesion. For about the last month, he has had 4 to 6 loose watery stools a day without blood or mucus. It can happen any time of the day. Nothing seems to help it including antiperistaltics. He developed the symptoms after a trip to [facility]. He has a band-like abdominal pain which is severe and that was what brought him in to the hospital. He had a CT of the abdomen and pelvis that showed possible peritoneal implants, ascites, liver metastasis, left adrenal mass, mesenteric edema, a ventral hernia, edematous small bowel. He has had no fevers, chills, or sweats. He was started on Zosyn. He thinks his pain is a little bit better. Blood cultures were taken, 1/ growing Sarwatfnia alvei. He does have a right chest port which has not been bothering him. He has also had about 10 days of ulceration of the tip of his penis, feels quite raw and burning pain. He had a triple antibiotic ointment for it which has not seemed to help much. He thinks the area of desquamation is increasing in size. Does not hurt to urinate. Sometimes, if urine drips on the area, that does bother him. There has been an occasional scant greenish discharge. He has not had anything like this before. The only other skin changes are cracking, desquamation of the skin on his hands and feet. PAST MEDICAL HISTORY: Small bowel carcinoma, status post ileoileal anastomosis , omentoplasty, excision of liver nodule. He has metastasis to the liver, the lungs, possibly peritoneum. He has a history of ERCP and stent placement for obstructive disease. Initially treated with Avastin, 5-FU, oxaliplatin, then FOLFOX and bevacizumab. June switched to Xeloda and Avastin which he has continued until recently out of concern for side effects. He has atrial fibrillation, hypertension, congestive heart failure, status post left inguinal hernia repair, and right inguinal hernia repair. MEDICATIONS: 1. Tylenol. 2. Amiodarone. 3. Lidocaine. 4. Loperamide. 5. Zofran. 6. Zosyn 3.375 g IV every 8 hours. ALLERGIES: DOFETILIDE. FAMILY HISTORY: Noncontributory. He does not have history of recurrent infection or tuberculosis. 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 REVIEW OF SYSTEMS: All negative except as noted above. PHYSICAL EXAM: Vital Signs: Temperature is 36.7, heart rate 70, respiratory rate 19, blood pressure 120/70, O2 sat 96% on room air. In general, he is not in distress, not diaphoretic. Neurologic: He is awake and oriented x3. Follows all commands. Moves all extremities. HEENT: There is no conjunctival hemorrhage. Oropharynx without lesions. Neck is supple without nuchal rigidity. Lymph Nodes: There is no cervical, supraclavicular, inguinal, axillary, or epitrochlear lymphadenopathy. Heart has regular rate and rhythm without murmurs, rubs, or gallops. Lungs are clear to auscultation bilaterally. Abdomen: Soft, nontender, nondistended without hepatosplenomegaly. Skin: There is no rash or splinter hemorrhages. He has on the palms and soles cracked dry skin which involves the entire palm and sole. Musculoskeletal: There is no spine tenderness to palpation or joint synovitis. Genitourinary: On the tip of the penis, there is diffuse desquamation with underlying beefy erythema, scant serous drainage, and the desquamation does not extend into the meatus. LABORATORY DATA: White blood cell count 6, hemoglobin 14, platelets 259. Creatinine is 1.2. CRP was 10. Urinalysis was negative. Please see impressions and recommendations as outlined above. Thanks for asking me to see Dr. Lerner in consultation. [id number]/[facility] #: [id number] JAELYN
[2016-10-12] MEDS: Piperac/Tazob 3.375 gm in NS* 3.375 GM/100 ML BAG IVPB SCH ×3 (01:20→22:07)
[2016-10-12 06:01] LABS: Comments Flag Yes; Hematocrit 40 % (42-52); Mean Corpuscular HGB Conc 33 g/dl (31-36); Mean Corpuscular Hemoglobin 33 pg (27-31); Mean Corpuscular Volume 99 fL (80-94); Mean Platelet Volume 7 um3 (7.4-10.4); Red Blood Count 4.01 10^6/ul (4.0-5.4); Red Cell Distribution Width 24 % (10.5-15); White Blood Count 5.4 10^3/ul (3.5-10.8)
[2016-10-12 06:02] LABS: Add Diff/Slide Review? Slide Review Added
[2016-10-12 06:19] LABS: BUN/Creatinine Ratio 6.9 (8-20); EGFR African American 77.9 (>60); EGFR Non-African American 60.6 (>60); Potassium 3.3 mmol/L (3.5-5.0)
[2016-10-12] MEDS: NS 0.9% 1000 ML* 1,000 ML IV SCH (06:57)
[2016-10-12] MEDS ORDERED: NS 0.9% 1000 ML* 1,000 ML IV SCH (09:14)
[2016-10-12] MEDS: Amiodarone TAB* 200 MG PO SCH (10:05)
--- NOTE | 2016-10-12 10:05 | PN ---
Progress Note - Progress Note SOAP: Subjective: []Feels as though he is better then when he arrived, improved abd. pain though still lots of gas and bloating. Still having diarrhea. Tolerated sm. amt. of soft BRAT diet foods. Biggest concern is related to his penal lesion and concern it hasn't improved. Very worried about cleanliness of room. Medications: Acetaminophen (Tylenol Tab*) 650 mg PO Q6H PRN PRN Reason: FEVER/PAIN Amiodarone HCl (Cordarone Tab*) 100 mg PO DAILY [facility] Last Admin: 10/11/16 10:18 Dose: 100 mg Benzonatate (Tessalon Cap*) 100 mg PO TID PRN PRN Reason: COUGH Piperacillin Sod/Tazobactam Sod (Zosyn 3.375 Gm In Ns Premix*) 3.375 gm in 100 mls @ 25 mls/hr IVPB Q8H [facility] Last Admin: 10/12/16 01:20 Dose: 25 mls/hr Levofloxacin/Dextrose (Levaquin 500 Mg Ivpremix(*)) 500 mg in 100 mls @ 100 mls /hr IVPB Q24H [facility] Sodium Chloride (Ns 0.9% 1000 Ml*) 1,000 mls @ 75 mls/hr IV PER RATE [facility] Lidocaine HCl (Lidocaine 2% Jelly*) 1 applic TOPICAL Q4H PRN PRN Reason: PERIANAL PAIN Last Admin: 10/10/16 21:46 Dose: 1 applic Loperamide HCl (Imodium Cap*) 2 mg PO .SEE DIRECTIONS PRN PRN Reason: DIARRHEA Metoprolol Tartrate (Lopressor Tab*) 50 mg PO DAILY [facility] Last Admin: 10/11/16 10:18 Dose: 50 mg Nystatin (Nystatin Oint*) 1 applic TOPICAL BID [facility] Last Admin: 10/11/16 20:18 Dose: 1 applic Ondansetron HCl (Zofran Inj*) 4 mg IV Q4H PRN PRN Reason: NAUSEA/VOMITING Last Admin: 10/11/16 04:04 Dose: 4 mg Potassium Chloride (Klor Con Er Tab*) 20 meq PO BID [facility] Rivaroxaban (Xarelto (*)) 20 mg PO DAILY [facility] Last Admin: 10/11/16 10:18 Dose: 20 mg Objective: [] Vital Signs Temp Pulse Resp BP Pulse Ox 97.5 F 84 16 138/79 99 10/12/16 07:37 10/12/16 07:37 10/12/16 00:04 10/12/16 07:37 10/12/16 07:37 A&Ox3, EOMI, SEALS, ambulating with steady gait HRR, no murmur noted, S1S2 LS clear bilat. throughout, resp. even and non-labored +BS, abd. round and soft, non-tender Desquamation of tip of penis w/o evidence for urethral involvement, no edema or erythema noted urine dark yellow Laboratory Results - last 24 hr 10/11/16 10/11/16 10/12/16 13:00 13:00 05:40 WBC 6.0 RBC 4.33 Hgb 14.1 Hct 43 MCV 99 H MCH 33 H MCHC 33 RDW 24 H Plt Count 259 MPV 7 L Neut % (Auto) 46.1 Lymph % (Auto) 28.3 [place] % (Auto) 14.8 H Eos % (Auto) 10.2 H Baso % (Auto) 0.6 Absolute Neuts (auto) 2.8 Absolute Lymphs (auto) 1.7 Absolute Monos (auto) 0.9 H Absolute Eos (auto) 0.6 Absolute Basos (auto) 0 Absolute Nucleated RBC 0.01 Nucleated RBC % 0.2 Diff Slide Review Sodium 139 139 Potassium 3.6 3.3 L Chloride 111 115 H Carbon Dioxide 21 L 20 L Anion Gap 7 4 BUN 11 8 Creatinine 1.21 H 1.16 Est GFR ( Amer) 74.2 77.9 Est GFR (Non-Af Amer) 57.7 60.6 BUN/Creatinine Ratio 9.1 6.9 L Glucose 126 H 129 H Calcium 7.3 L 7.0 L TSH 10.27 H 10/12/16 05:40 WBC 5.4 RBC 4.01 Hgb 13.0 L Hct 40 L MCV 99 H MCH 33 H MCHC 33 RDW 24 H Plt Count 229 MPV 7 L Neut % (Auto) 49.7 Lymph % (Auto) 19.9 L [place] % (Auto) 16.9 H Eos % (Auto) 12.9 H Baso % (Auto) 0.6 Absolute Neuts (auto) 2.7 Absolute Lymphs (auto) 1.1 Absolute Monos (auto) 0.9 H Absolute Eos (auto) 0.7 H Absolute Basos (auto) 0 Absolute Nucleated RBC 0.02 Nucleated RBC % 0.3 Diff Slide Review Cancelled Sodium Potassium Chloride Carbon Dioxide Anion Gap BUN Creatinine Est GFR ( Amer) Est GFR (Non-Af Amer) BUN/Creatinine Ratio Glucose Calcium TSH Assessment: []80 yo admitted with SBO and bacteremia, appearing to improve slowly. Course somewhat complicated by ulceration of penis, agree likely secondary to Capecitabine treatment (desquamation). Plan: []1. SBO with bacteremia: microscopic perforation appearing to improve on abx., sensitivity with intermediate coverage by Zosyn therefore will add Levaquin ( aware of interaction with amiodarone however benefits outweight risks for time being), will discuss with Dr. Quintana plan for termite treater helper vs. step down coverage and for now continue both 2. Penal lesion: discussed with Dr. Donis of urology and agrees with vasoline gauze, can be seen as an outpatient as there is no urethral involvement at this time. 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
[2016-10-12] MEDS: Metoprolol Tartrate TAB* 25 MG PO SCH (10:06)
[2016-10-12] MEDS: Rivaroxaban TAB(*) 20 MG TAB PO SCH (10:06)
[2016-10-12] MEDS: Nystatin OINT* 15 GM TOPICAL SCH ×2 (10:06→22:08)
[2016-10-12 10:44] LABS: Magnesium 1.4 mg/dL (1.9-2.7)
[2016-10-12] MEDS ORDERED: Magnesium Sulf 4 GM/100 ML IV* 4,000 MG/100 ML BAG IVPB ONE (11:12)
[2016-10-12] MEDS: Potassium Chlor TAB* 20 MEQ TAB.ER PO SCH ×2 (14:26→19:48)
[2016-10-12] MEDS: Levofloxacin 500 MG IVPREMIX(* 500 MG/100 ML BAG IVPB SCH (14:26)
[2016-10-12 18:18] LABS: C Reactive Protein 7.53 mg/L (< 5.00)
[2016-10-12 18:38] LABS: Free T4 1.14 ng/dL (0.61-1.12)
[2016-10-13] MEDS: Piperac/Tazob 3.375 gm in NS* 3.375 GM/100 ML BAG IVPB SCH ×3 (05:42→20:34)
[2016-10-13 07:01] LABS: Albumin 1.7 g/dL (3.2-5.2); Calcium 7.2 mg/dL (8.6-10.3); EGFR African American 77.9 (>60); EGFR Non-African American 60.6 (>60); Globulin 2.5 g/dL (2-4); Magnesium 2.2 mg/dL (1.9-2.7); Potassium 3.6 mmol/L (3.5-5.0); Total Bilirubin 0.3 mg/dL (0.2-1.0); Total Protein 4.2 g/dL (6.4-8.9)
[2016-10-13] MEDS: Metoprolol Tartrate TAB* 25 MG PO SCH (08:37)
[2016-10-13] MEDS: Amiodarone TAB* 200 MG PO SCH (08:37)
[2016-10-13] MEDS: Potassium Chlor TAB* 20 MEQ TAB.ER PO SCH ×2 (08:37→20:34)
[2016-10-13] MEDS: Rivaroxaban TAB(*) 20 MG TAB PO SCH (08:37)
[2016-10-13] MEDS: Levofloxacin 500 MG IVPREMIX(* 500 MG/100 ML BAG IVPB SCH (10:41)
[2016-10-13] MEDS: Nystatin OINT* 15 GM TOPICAL SCH ×2 (10:41→20:34)
[2016-10-13 11:40] LABS: Urine Bacteria Absent (Absent); Urine Bilirubin Negative (Negative); Urine Glucose Negative (Negative); Urine Nitrite Negative (Negative)
[2016-10-13] MEDS ORDERED: Calcium Carbonate CHEW TAB* 500 MG (TUMS) PO PRN (17:13)
--- NOTE | 2016-10-13 17:32 | PN ---
Progress Note - Progress Note SOAP: Subjective: []Pt. seen early this afternoon. Feeling OK. Tolerating food better. Still having diarrhea, but no worse. Feels like he isn't peeing as much but denies pain or difficulty urinating. Penal lesions not better and maybe worse. Scrotum swollen. Medications: Acetaminophen (Tylenol Tab*) 650 mg PO Q6H PRN PRN Reason: FEVER/PAIN Amiodarone HCl (Cordarone Tab*) 100 mg PO DAILY [facility] Last Admin: 10/13/16 08:37 Dose: 100 mg Benzonatate (Tessalon Cap*) 100 mg PO TID PRN PRN Reason: COUGH Calcium Carbonate (Tums*) 500 mg PO Q4H PRN PRN Reason: HEARTBURN Heparin Sodium (Porcine) (Heparin Flush Port (Ivad)) 5 ml FLUSH DAILY [facility] PRN Reason: Protocol Levofloxacin/Dextrose (Levaquin 500 Mg Ivpremix(*)) 500 mg in 100 mls @ 100 mls /hr IVPB Q24H [facility] Last Admin: 10/13/16 10:41 Dose: 100 mls/hr Piperacillin Sod/Tazobactam Sod (Zosyn 3.375 Gm In Ns Premix*) 3.375 gm in 100 mls @ 25 mls/hr IVPB Q8H [facility] Last Admin: 10/13/16 14:15 Dose: 25 mls/hr Acyclovir Sodium 330 mg/ (Sodium Chloride) 106.6 mls @ 106.6 mls/hr IVPB Q8H [facility] Last Admin: 10/13/16 13:07 Dose: 106.6 mls/hr Lidocaine HCl (Lidocaine 2% Jelly*) 1 applic TOPICAL Q4H PRN PRN Reason: PERIANAL PAIN Last Admin: 10/10/16 21:46 Dose: 1 applic Loperamide HCl (Imodium Cap*) 2 mg PO .SEE DIRECTIONS PRN PRN Reason: DIARRHEA Metoprolol Tartrate (Lopressor Tab*) 50 mg PO DAILY [facility] Last Admin: 10/13/16 08:37 Dose: 50 mg Nystatin (Nystatin Oint*) 1 applic TOPICAL BID [facility] Last Admin: 10/13/16 10:41 Dose: 1 applic Omeprazole (Prilosec Cap*) 20 mg PO DAILY@0730 [facility] Ondansetron HCl (Zofran Inj*) 4 mg IV Q4H PRN PRN Reason: NAUSEA/VOMITING Last Admin: 10/11/16 04:04 Dose: 4 mg Potassium Chloride (Klor Con Er Tab*) 20 meq PO BID [facility] Last Admin: 10/13/16 08:37 Dose: 20 meq Rivaroxaban (Xarelto (*)) 20 mg PO DAILY [facility] Last Admin: 10/13/16 08:37 Dose: 20 mg Simethicone (Mylicon*) 80 mg PO Q4H PRN PRN Reason: INDIGESTION Objective: [] Vital Signs Temp Pulse Resp BP Pulse Ox 97.7 F 58 22 127/81 100 10/13/16 15:14 10/13/16 15:14 10/13/16 15:14 10/13/16 15:14 10/13/16 15:14 A&Ox3, EOMI, SEALS, converses easily and states understanding of plan of care HRR, S1S2 LS clear bilat. +BS, abd. soft and non-tender Penis glans with ulcerated lesion with clear borders and yellow sloughing, several ulcerations on scrotum Laboratory Results - last 24 hr 10/12/16 10/13/16 10/13/16 16:45 00:35 05:45 Sodium 140 Potassium 3.6 Chloride 115 H Carbon Dioxide 20 L Anion Gap 5 BUN 7 Creatinine 1.16 Est GFR ( Amer) 77.9 Est GFR (Non-Af Amer) 60.6 BUN/Creatinine Ratio 6.0 L Glucose 93 Calcium 7.2 L Magnesium 2.2 Total Bilirubin 0.30 AST 18 ALT 7 Alkaline Phosphatase 54 C-Reactive Protein 7.53 H Total Protein 4.2 L Albumin 1.7 L Globulin 2.5 Albumin/Globulin Ratio 0.7 L Free T4 1.14 H Urine Color Yellow Urine Appearance Cloudy Urine pH 5.0 Ur Specific [place] 1.020 Urine Protein 1+(30 mg/dl) H Urine Ketones Negative Urine Blood Negative Urine Nitrate Negative Urine Bilirubin Negative Urine Urobilinogen Negative Ur Leukocyte Esterase Negative Urine WBC (Auto) Absent Urine RBC (Auto) Absent Ur Squamous Epith Cells Present H Calcium Oxalate Crystal Present H Urine Bacteria Absent Hyaline Casts Present H Urine Glucose Negative Urine Ascorbic Acid * H Assessment/Plan: []1. Bacteremia: cont. Zosyn and Levaquin for now, will need alf coverage per ID 2. Penal lesion: question of HSV with spread to scrotum therefore Acyclovir IV added yesterday afternoon (viral culture pending), will continue with Nystatin. Wound culture sent, question if could be chancroid (Haemophilus ducreyi). Previously discussed with Dr. Donis @ urology and likely will be seen as outpatient (no evidence for surgical intervention or affect on urethra at this time) 3. SBO: appears to be resolving, will stop IV fluids (concern of overload and labs normalizing), OK to cont. progressing diet 4. Colorectal Cancer: hold therapy for now 5. Decreased UO subjectively: close I&Os and will check post void residual
[2016-10-13] MEDS: Simethicone CHEW TAB* 80 MG PO PRN (19:37)
[2016-10-14] MEDS: Simethicone CHEW TAB* 80 MG PO PRN ×2 (01:40→07:49)
[2016-10-14] MEDS: Piperac/Tazob 3.375 gm in NS* 3.375 GM/100 ML BAG IVPB SCH ×3 (04:31→20:39)
[2016-10-14 05:31] LABS: Comments Flag Yes; Hematocrit 39 % (42-52); Hemoglobin 12.7 g/dl (14.0-18.0); Mean Corpuscular HGB Conc 33 g/dl (31-36); Mean Corpuscular Hemoglobin 33 pg (27-31); Mean Corpuscular Volume 100 fL (80-94); Mean Platelet Volume 7 um3 (7.4-10.4); White Blood Count 6.6 10^3/ul (3.5-10.8)
[2016-10-14 05:32] LABS: Red Cell Distribution Width 25 % (10.5-15)
[2016-10-14 05:45] LABS: Albumin 1.7 g/dL (3.2-5.2); Calcium 7.3 mg/dL (8.6-10.3); EGFR African American 72.1 (>60); EGFR Non-African American 56.1 (>60); Globulin 2.6 g/dL (2-4); Potassium 3.4 mmol/L (3.5-5.0); Total Bilirubin 0.3 mg/dL (0.2-1.0); Total Protein 4.3 g/dL (6.4-8.9)
[2016-10-14] MEDS: Potassium Chlor TAB* 20 MEQ TAB.ER PO SCH ×2 (07:49→20:56)
[2016-10-14] MEDS: Omeprazole CAP* 20 MG PO SCH (07:49)
[2016-10-14] MEDS: Amiodarone TAB* 200 MG PO SCH (07:49)
[2016-10-14] MEDS: Metoprolol Tartrate TAB* 25 MG PO SCH (07:50)
[2016-10-14] MEDS: Nystatin OINT* 15 GM TOPICAL SCH ×2 (08:03→20:56)
[2016-10-14] MEDS: Rivaroxaban TAB(*) 20 MG TAB PO SCH (08:06)
[2016-10-14] MEDS ORDERED: Amiodarone TAB* 200 MG PO ONE (08:30)
[2016-10-14] MEDS ORDERED: Potassium Chlor TAB* 20 MEQ TAB.ER PO ONE (09:41)
[2016-10-14] MEDS: Levofloxacin 500 MG IVPREMIX(* 500 MG/100 ML BAG IVPB SCH (09:44)
[2016-10-15] MEDS: Simethicone CHEW TAB* 80 MG PO PRN ×3 (00:53→21:38)
[2016-10-15] MEDS: Acetaminophen TAB* 325 MG PO PRN ×2 (02:35→21:37)
[2016-10-15] MEDS: Piperac/Tazob 3.375 gm in NS* 3.375 GM/100 ML BAG IVPB SCH ×3 (04:29→21:37)
[2016-10-15 05:54] LABS: Hematocrit 37 % (42-52); Hemoglobin 12.1 g/dl (14.0-18.0); Mean Corpuscular HGB Conc 33 g/dl (31-36); Mean Corpuscular Hemoglobin 32 pg (27-31); Mean Corpuscular Volume 100 fL (80-94); Mean Platelet Volume 7 um3 (7.4-10.4); Red Blood Count 3.72 10^6/ul (4.0-5.4); White Blood Count 8.2 10^3/ul (3.5-10.8)
[2016-10-15 05:55] LABS: Comments Flag Yes
[2016-10-15 05:56] LABS: Red Cell Distribution Width 24 % (10.5-15)
[2016-10-15 06:05] LABS: BUN/Creatinine Ratio 3.3 (8-20); Calcium 7.3 mg/dL (8.6-10.3); EGFR African American 73.5 (>60); EGFR Non-African American 57.2 (>60); Potassium 3.7 mmol/L (3.5-5.0)
[2016-10-15] MEDS ORDERED: Amiodarone TAB* 200 MG PO SCH (09:00)
[2016-10-15] MEDS: Omeprazole CAP* 20 MG PO SCH (09:02)
[2016-10-15] MEDS: Potassium Chlor TAB* 20 MEQ TAB.ER PO SCH ×2 (09:02→21:38)
[2016-10-15] MEDS: Metoprolol Tartrate TAB* 25 MG PO SCH (09:03)
[2016-10-15] MEDS: Rivaroxaban TAB(*) 20 MG TAB PO SCH (09:03)
[2016-10-15] MEDS: Levofloxacin 500 MG IVPREMIX(* 500 MG/100 ML BAG IVPB SCH (10:13)
[2016-10-15] MEDS: Nystatin OINT* 15 GM TOPICAL SCH ×2 (10:15→20:25)
[2016-10-15 21:40] LABS: HS/VZ Source GENITAL; Varicella Zoster Result Negative (Negative); Varicella Zoster Source GENITAL
[2016-10-16] MEDS: Simethicone CHEW TAB* 80 MG PO PRN ×3 (03:13→21:05)
[2016-10-16] MEDS: Piperac/Tazob 3.375 gm in NS* 3.375 GM/100 ML BAG IVPB SCH (04:33)
[2016-10-16 05:02] LABS: Hematocrit 37 % (42-52); Mean Corpuscular HGB Conc 33 g/dl (31-36); Mean Corpuscular Hemoglobin 32 pg (27-31); Mean Corpuscular Volume 99 fL (80-94); Mean Platelet Volume 7 um3 (7.4-10.4); White Blood Count 7.7 10^3/ul (3.5-10.8)
[2016-10-16 05:03] LABS: Comments Flag Yes; Red Cell Distribution Width 25 % (10.5-15)
[2016-10-16 05:06] LABS: Albumin 1.7 g/dL (3.2-5.2); BUN/Creatinine Ratio 2.8 (8-20); Calcium 7.2 mg/dL (8.6-10.3); EGFR African American 84.6 (>60); EGFR Non-African American 65.8 (>60); Globulin 2.6 g/dL (2-4); Potassium 3.8 mmol/L (3.5-5.0); Total Bilirubin 0.3 mg/dL (0.2-1.0); Total Protein 4.3 g/dL (6.4-8.9)
[2016-10-16] MEDS: Omeprazole CAP* 20 MG PO SCH (09:01)
[2016-10-16] MEDS: Potassium Chlor TAB* 20 MEQ TAB.ER PO SCH ×2 (09:01→21:05)
[2016-10-16] MEDS: Amiodarone TAB* 200 MG PO SCH (09:01)
[2016-10-16] MEDS: Metoprolol Tartrate TAB* 25 MG PO SCH (09:02)
[2016-10-16] MEDS: Rivaroxaban TAB(*) 20 MG TAB PO SCH (09:02)
[2016-10-16] MEDS: Levofloxacin 500 MG IVPREMIX(* 500 MG/100 ML BAG IVPB SCH (10:00)
[2016-10-16] MEDS: Nystatin OINT* 15 GM TOPICAL SCH (10:01)
--- NOTE | 2016-10-16 12:03 | PN ---
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 Pain resolved, appetite better , stools less frequent and soft instead of liquid. Lesion on penis the same to him, not getting bigger. No fever, rash, or chills. Objective: [] Vital Signs Temp 37.0 C 10/15/16 23:29 Pulse 66 10/15/16 23:29 Resp 20 10/15/16 23:29 BP 140/80 10/15/16 23:29 Pulse Ox 98 10/15/16 23:29 Intake & Output 10/15/16 10/16/16 10/16/16 18:59 06:59 18:59 Intake Total 840 590 Output Total 700 300 Balance 140 290 Intake: IVPB 310 Zosyn 100 acyclovir 210 Oral 840 280 Output: Urine 700 300 Other: Estimated Void Medium # Bowel Movements 2 2 Estimated Stool Amount Large Medium # Voids 2 Gen:Awake, NAD Neuro:Ox3, answers all questions HEENT:PERRL, MMM Neck:Supple Heart:RRR no murmur Lungs:CTA BL Abd:+BS NTND soft Chest:R chest port MSK: no joint synovitis Skin: desquamation on hands and feet; desquamation end of penis and 2-3 purple targetoid lesions Laboratory Results - last 24 hr 10/12/16 10/16/16 10/16/16 19:10 04:40 04:40 WBC 7.7 RBC 3.70 L Hgb 12.0 L Hct 37 L MCV 99 H MCH 32 H MCHC 33 RDW 25 H Plt Count 191 MPV 7 L Neut % (Auto) 56.0 Lymph % (Auto) 12.4 L [place] % (Auto) 11.9 H Eos % (Auto) 17.8 H Baso % (Auto) 1.9 Absolute Neuts (auto) 4.3 Absolute Lymphs (auto) 1.0 Absolute Monos (auto) 0.9 H Absolute Eos (auto) 1.4 H Absolute Basos (auto) 0.1 Absolute Nucleated RBC 0 Nucleated RBC % 0.1 Sodium 139 Potassium 3.8 Chloride 116 H Carbon Dioxide 20 L Anion Gap 3 BUN 3 L Creatinine 1.08 Est GFR ( Amer) 84.6 Est GFR (Non-Af Amer) 65.8 BUN/Creatinine Ratio 2.8 L Glucose 84 Calcium 7.2 L Total Bilirubin 0.30 AST 17 ALT 7 Alkaline Phosphatase 60 Total Protein 4.3 L Albumin 1.7 L Globulin 2.6 Albumin/Globulin Ratio 0.7 L HSV I DNA PCR Negative HSV II DNA PCR Negative Dermal HSV & VZV Source Genital Varicella-Zoster Source Genital VZV DNA (PCR) Negative Assessment: 1. Hafnia bacteremia ?secondary to gastroenteritis, complications include port infection 2. penile lesion is not a primary infection but skin desquamation suspect fixed drug reaction, with secondary infection 3. small bowel cancer on chemotherapy Plan: 1. dc zosyn and levaquin; ceftriaxone 1 gm daily, day 5/7. 2. dc acyclovir, continue topical nystatin and wound care for penis desquamation
[2016-10-17] MEDS: Nystatin OINT* 15 GM TOPICAL SCH ×2 (00:23→11:46)
[2016-10-17] MEDS: Simethicone CHEW TAB* 80 MG PO PRN (01:00)
[2016-10-17] MEDS: Omeprazole CAP* 20 MG PO SCH (06:11)
[2016-10-17 07:51] VITALS: BP 150/83
[2016-10-17] MEDS: Metoprolol Tartrate TAB* 25 MG PO SCH (09:01)
[2016-10-17] MEDS: Rivaroxaban TAB(*) 20 MG TAB PO SCH (09:01)
[2016-10-17] MEDS: Potassium Chlor TAB* 20 MEQ TAB.ER PO SCH (09:01)
[2016-10-17] MEDS: Amiodarone TAB* 200 MG PO SCH (09:01)
[2016-10-17] MEDS ORDERED: cefTRIAXone VIAL(*) 1,000 MG in NS 0.9% 50 ML* 50 ML IVPB SCH (12:00)
--- NOTE | 2016-10-17 16:33 | PN ---
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 Pain resolved, appetite better , stools less frequent and soft instead of liquid. Lesion on penis about the same, wants another device to protect it. No fever, rash, or chills. Objective: [] Vital Signs Temp 36.5 C 10/17/16 07:43 Pulse 72 10/17/16 07:43 Resp 16 10/17/16 08:00 BP 150/83 10/17/16 07:43 Pulse Ox 100 10/17/16 07:43 Intake & Output 10/16/16 10/17/16 10/17/16 18:59 06:59 18:59 Intake Total 810 580 545 Output Total 750 Balance 810 -170 545 Intake: IV Fluids 20 NS (0.9%) 20 IVPB 55 ABX - CEFTRIAXONE 55 Oral 810 580 470 Output: Urine 750 Other: Estimated Void Small Medium # Bowel Movements 1 1 2 Estimated Stool Amount Medium Large Medium # Voids 2 1 3 Gen:Awake, NAD Neuro:Ox3, answers all questions HEENT:PERRL, MMM Neck:Supple Heart:RRR no murmur Lungs:CTA BL Abd:+BS NTND soft Chest:R chest port MSK: no joint synovitis Skin: desquamation on hands and feet; desquamation end of penis and erythema Assessment: 1. Hafnia bacteremia ?secondary to gastroenteritis, complications include port infection 2. penile lesion is not a primary infection but skin desquamation suspect fixed drug reaction, with secondary infection 3. small bowel cancer on chemotherapy Plan: 1. day 7 of ceftriaxone 2. continue topical nystatin and wound care for penis desquamation 35 minutes floor time >50% face to face in counseling regarding his various antibacterials, antivirals, future infection treatment plans, all questions answered.
[2016-10-18 12:59] LABS: Syphilis Index < 0.1 Index
== END 2016-10-17 17:15 | disposition home or self-care (01) | DRG 388 ==
LOC: ED 17:35 → MED 10-10 09:43 → OBSVTOIN 10-11 12:18 → MED 10-15 17:57
PROVIDERS: ADMIT Internal Medicine Hematology & Oncology; ATTEND Internal Medicine Hematology & Oncology
DX: K56.69 Other intestinal obstruction (principal); I50.31 Acute diastolic (congestive) heart failure; C78.7 Secondary malignant neoplasm of liver and intrahepatic bile duct; C78.01 Secondary malignant neoplasm of right lung; R78.81 Bacteremia; C78.02 Secondary malignant neoplasm of left lung; I48.91 Unspecified atrial fibrillation; I11.0 Hypertensive heart disease with heart failure; C17.9 Malignant neoplasm of small intestine, unspecified; K21.9 Gastro-esophageal reflux disease without esophagitis; K57.90 Diverticulosis of intestine, part unspecified, without perforation or abscess without bleeding; N40.0 Benign prostatic hyperplasia without lower urinary tract symptoms; N50.89 Other specified disorders of the male genital organs; Z90.49 Acquired absence of other specified parts of digestive tract; Z85.118 Personal history of other malignant neoplasm of bronchus and lung; Z87.01 Personal history of pneumonia (recurrent); Z86.718 Personal history of other venous thrombosis and embolism; Z79.01 Long term (current) use of anticoagulants
CPT/HCPCS: 36415; 71010; 71250; 74177; 80048; 80053; 81003; 81015; 83605; 83630; 83690; 83735; 83880; 84439; 84443; 84484; 85025; 85610; 85730; 86140; 86592; 87040; 87070; 87077; 87186; 87205; 87252; 87493; 87529; 87641; 87798; 93005; 99223; 99233; 99239; A9270-GY; J0133; J0696; J1642; J1956; J2405; J2543; J3480; Q9967

== ENCOUNTER 2016-10-25 17:44 | Emergency (ER) | payer MEDICARE, OTHER ==
[2016-10-25 18:28] VITALS: BP 140/80
--- NOTE | 2016-10-25 19:24 | UC ---
Skin Complaint HPI - HPI Summary HPI Summary: 80 yo male with bilateral foot pain x days has desquamation of skin on palm/penis and soles weeks ago thoughto be due to CT has been using antifungal on penis per Dr. Gregory recommedation no feet very painful - History of Current Complaint Chief Complaint: UCLowerExtremity Time Seen by Provider: 10/25/16 18:37 Stated Complaint: FOOT COMPLAINT Hx Obtained From: Patient Onset/Duration: Gradual Onset, Lasting Weeks Onset Severity: Moderate Current Severity: Moderate Pain Intensity: 4 Pain Scale Used: 0-10 Numeric Location: Other - feet Character: Pain, Redness Aggravating: Other - wt bearing Associated Signs & Symptoms: Positive: Rash - Allergy/Home Medications Allergies/Adverse Reactions: Allergies Allergy/AdvReac Type Severity Reaction Status Date / Time Dofetilide [From Tikosyn] AdvReac Severe See Comment Verified 10/25/16 18:28 Home Medications: Home Medications Benzonatate CAP* [Tessalon 100 MG CAP*] 1 PRN 10/25/16 [History] Review of Systems Constitutional: Negative Skin: Rash Eyes: Negative ENT: Negative Respiratory: Cough - chronic Cardiovascular: Negative Gastrointestinal: Negative Genitourinary: Negative Motor: Negative Neurovascular: Negative Musculoskeletal: Negative Neurological: Negative Psychological: Negative All Other Systems Reviewed And Are Negative: Yes PMH/Surg Hx/FS Hx/Imm Hx Endocrine History Of: Denies: Diabetes, Thyroid Disease, Hyperthyroidism, Hypothyroidism, Dyslipidemia Cardiovascular History Of: Reports: Cardiac Disorders - arrythmias, Hypertension , Congestive Heart Failure - ACUTE DIASTOLIC CHF, Atrial Fibrillation Denies: Pacemaker/ICD, Myocardial Infarction, Deep Vein Thrombosis, Bleeding Disorders Respiratory History Of: Reports: Pneumonia Denies: COPD, Asthma, Bronchitis, Pulmonary Embolism GI/ History Of: Denies: Gastroesophageal Reflux, Ulcer, Gastrointestinal Bleed, Gall Bladder Disease, Kidney Stones, Diverticulitis, Renal Disease, Urosepsis Neurological History Of: Denies: TIA, CVA, Dementia, Seizures, Migraine Psychological History Of: Denies: Anxiety, Depression, Bipolar Disorder, Schizophrenia, Post Traumatic Stress Disorder Cancer History Of: Reports: Lung Cancer, Colorectal Cancer - SMALL BOWEL Denies: Breast Cancer, Prostate Cancer, Cervical Cancer Other History Of: Anticoagulant Therapy - XARELTO Negative For: HIV, Hepatitis B, Hepatitis C - Surgical History Surgical History: Yes Surgery Procedure, Year, and Place: Osteoma removed 1953 [facility]. LEFT INGUINAL REPAIR W/MESH. 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 ERCP with biliary sphincterotomy and stent 11/29/2015. Right inguinal hernia repair 08/2015 - Family History Known Family History: Positive: Hypertension, Other - prostate CA Negative: Cardiac Disease, Diabetes Family History: FHx of CVA - Social History Alcohol Use: None Substance Use Type: None Smoking Status (MU): Never Smoked Tobacco Amount Used/How Often: - PIPE AND CIGAR Have You Smoked in the Last Year: No - Immunization History Most Recent Influenza Vaccination: Fall 2015 Most Recent Tetanus Shot: 2003 Most Recent Pneumonia Vaccination: 2008 Physical Exam Triage Information Reviewed: Yes Appearance: Well-Appearing, No Pain Distress, Well-Nourished Vital Signs: Initial Vital Signs Pulse 63 10/25/16 18:17 Resp 18 10/25/16 18:17 BP 140/80 10/25/16 18:17 Pulse Ox 100 10/25/16 18:17 Vital Signs Reviewed: Yes Eyes: Positive: Conjunctiva Clear Neck: Positive: Supple Respiratory: Positive: No respiratory distress, No accessory muscle use Cardiovascular: Positive: RRR Neurological: Positive: Alert Psychological Exam: Normal Skin Exam: Other - plantar aspect both feet red/cracked skin/a few non infect shallow ulcerations Course/Dx - Diagnoses Provider Diagnoses: possible tinea pedis Discharge - Discharge Plan Condition: Stable Disposition: HOME Prescriptions: Nystatin CREAM* 1 applic TOPICAL BID #120 tube Patient Education Materials: Tinea Pedis (ED) Referrals: Rena Nielsen [Medical Doctor] - As Soon As Possible (INFORMATION SPECIALIST) Additional Instructions: you may have a fungal infection of the feet epsom salt soaks 10 minutes twice a day gently dry feet apply antifungal I suggest derm follow up recheck next week with your md
== END 2016-10-25 19:52 | disposition home or self-care (01) ==
LOC: UCEAST 17:44
DX: R21 Rash and other nonspecific skin eruption (principal); M79.672 Pain in left foot; M79.671 Pain in right foot; Z88.8 Allergy status to other drugs, medicaments and biological substances; I48.91 Unspecified atrial fibrillation; Z79.01 Long term (current) use of anticoagulants; I11.0 Hypertensive heart disease with heart failure; I50.31 Acute diastolic (congestive) heart failure; Z85.118 Personal history of other malignant neoplasm of bronchus and lung; Z85.038 Personal history of other malignant neoplasm of large intestine
CPT/HCPCS: 99213; G0463

== ENCOUNTER 2017-01-15 20:32 | Emergency (ER) | payer MEDICARE, OTHER ==
[2017-01-15 21:54] VITALS: BP 155/91
--- NOTE | 2017-01-15 22:26 | UC ---
Paolo Le Benjamin, scribed for Lizett Prieto MD on 01/15/17 at 2206 . Shortness of Breath HPI - HPI Summary HPI Summary: 81yo male c/o SOB and cough for 5 days. 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 Pt is followed by [facility] and also [facility] for his cancer. Pt also reports bowel incontinence , dark urine, and abdominal bloating. Pt has been experiencing fatigue for 10 days now. Pt has a stent placed between his liver and his gall bladder. - History of Current Complaint Chief Complaint: UCGeneralIllness Stated Complaint: COUGH, TIRED, LOW ENERGY, DEHYRDATED Time Seen by Provider: 01/15/17 21:39 Hx Obtained From: Patient, Family/Clearing Inspector - grandson Onset/Duration: Lasting Days - 5 days, Still Present Timing: Constant Current Severity: None Dyspnea At: Rest Aggrevating Factors: Nothing Alleviating Factors: Nothing Associated Signs & Symptoms: Positive: Cough (Nonproductive), Other - FATIGUE, abd bloating - Risk Factors Pulmonary Embolism: Malignancy - Allergy/Home Medications Allergies/Adverse Reactions: Allergies Allergy/AdvReac Type Severity Reaction Status Date / Time Dofetilide [From Tikosyn] AdvReac Severe See Comment Verified 01/15/17 22:19 PMH/Surg Hx/FS Hx/Imm Hx Previously Healthy: No Cardiovascular History: Cardiac Disease, Hypertension, Congestive Heart Failure , Atrial Fibrillation Respiratory History: Pneumonia GI/ History: Diverticulitis, Other Other GI/ History: SBO Cancer History: Other Other Cancer History: metastatic small bowel adenocarcinoma Other History Of: Anticoagulant Therapy - XARELTO Negative For: HIV, Hepatitis B, Hepatitis C - Surgical History Surgical History: Yes Surgery Procedure, Year, and Place: Osteoma removed 1953 [facility]. LEFT INGUINAL REPAIR W/MESH. 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 ERCP with biliary sphincterotomy and stent 11/29/2015. 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 Alcohol Use: None Substance Use Type: None Smoking Status (MU): Former Smoker Amount Used/How Often: S- PIPE AND CIGAR Have You Smoked in the Last Year: No - Immunization History Most Recent Influenza Vaccination: Fall 2015 Most Recent Tetanus Shot: 2003 Most Recent Pneumonia Vaccination: 2008 Review of Systems Constitutional: Fatigue Skin: Negative Eyes: Negative ENT: Negative Respiratory: Shortness Of Breath, Cough Cardiovascular: Negative Gastrointestinal: Other - bloated abdomen; bowel incontinence Genitourinary: Other - dark urine Motor: Negative Neurovascular: Negative Musculoskeletal: Negative Neurological: Negative Psychological: Negative All Other Systems Reviewed And Are Negative: Yes Physical Exam Triage Information Reviewed: Yes Appearance: Well-Appearing, No Pain Distress, Thin Vital Signs: Initial Vital Signs Temp 98.8 F 01/15/17 20:47 Pulse 109 01/15/17 20:47 Resp 30 01/15/17 20:47 BP 155 /91 Vital Signs Reviewed: Yes Eyes: Positive: Conjunctiva Clear ENT: Positive: Hearing grossly normal. Negative: Muffled/hoarse voice Neck: Positive: Supple Respiratory: Positive: No respiratory distress, Decreased breath sounds - diffusely Cardiovascular: Positive: RRR, No Murmur, Pulses Normal, Brisk Capillary Refill Abdomen Description: Positive: Nontender, Soft, Distended. Negative: Peritoneal Signs Bowel Sounds: Positive: Present Musculoskeletal: Positive: Strength Intact, ROM Intact, No Edema Neurological: Positive: Alert, Muscle Tone Normal Psychological Exam: Normal Skin Exam: Normal Shortness of Breath Dx - Course Course Of Treatment: Reviewed medication lists and known allergies. 81yo male c /o SOB and cough for 5 days. Pt has hx of metastatic adenocarcinoma and is currently on a clinical trial. Pt also reports bowel incontinence, dark urine, and abdominal bloating. Pt has been experiencing fatigue for 10 days now. Pt has a stent placed between his liver and his gall bladder. Pt was advised to transfer to ED for further evaluation, joselyn saids that she will bring the pt via private car. Pt initially resisted going to [facility] because he states there is a doctor there that he does not like. - Differential Dx/Diagnosis Differential Diagnosis/HQI/PQRI: CHF, COPD Exacerbation, Pneumonia, Pulmonary Embolism, Other - bowel obstruction, perforated viscous, biliary obstruction Provider Diagnoses: Abdominal bloating. Cough. Fatigue. Metastatic small bowel cancer. Blood pressure under poor control. Discharge - Discharge Plan Condition: Stable Disposition: AGAINST MEDICAL ADVICE Discharge Disposition Comment: Pt transported by joselyn by private car to [facility] Referrals: Chris Veras MD [Primary Care Provider] - The documentation as recorded by the Paolo corado Benjamin accurately reflects the service I personally performed and the decisions made by me, Lizett Prieto MD.
== END 2017-01-15 21:57 | disposition left against medical advice (07) ==
LOC: UCEAST 20:32
DX: C78.4 Secondary malignant neoplasm of small intestine (principal); R05 Cough; R53.83 Other fatigue; Z53.20 Procedure and treatment not carried out because of patient's decision for unspecified reasons; I10 Essential (primary) hypertension; I50.9 Heart failure, unspecified; I48.91 Unspecified atrial fibrillation
CPT/HCPCS: 99212; G0463

== ENCOUNTER 2017-01-15 22:16 | Inpatient (IN) | payer MEDICARE, OTHER ==
[2017-01-15] MEDS ORDERED: NS 0.9% 1000 ML* 2,000 ML IV ONE (22:29)
--- NOTE | 2017-01-15 23:00 | RAD ---
INDICATION: Cough and fever COMPARISON: CT chest October 10, 2016 TECHNIQUE: An AP portable view obtained at 2248 hours is submitted. FINDINGS: Bones/Soft Tissues: There are no acute bony findings. Cardiomediastinal: The heart is normal in size. Lungs: There is mild progression within least confluence of extensive, bilateral pulmonary metastasis. Pleura: Small bilateral pleural effusions are suspected. Other: None IMPRESSION: DIFFUSE PULMONARY METASTASIS WITH INCREASED CONFLUENCE. GIVEN THESE DIFFUSE CHANGES A COEXISTENT INFILTRATE CANNOT BE EXCLUDED
[2017-01-15] MEDS ORDERED: Vancomycin(*) 1,000 MG in NS 0.9% 250 ML* 250 ML IVPB ONE (23:45)
[2017-01-16 00:30] LABS: Hematocrit 43 % (42-52); Hemoglobin 13.8 g/dl (14.0-18.0); Mean Corpuscular HGB Conc 33 g/dl (31-36); Mean Corpuscular Hemoglobin 31 pg (27-31); Mean Corpuscular Volume 94 fL (80-94); Mean Platelet Volume 8 um3 (7.4-10.4); Red Blood Count 4.52 10^6/ul (4.0-5.4); Red Cell Distribution Width 20 % (10.5-15); White Blood Count 10.7 10^3/ul (3.5-10.8)
[2017-01-16 00:50] LABS: Albumin 2.3 g/dL (3.2-5.2); BUN/Creatinine Ratio 24.4 (8-20); Calcium 8.7 mg/dL (8.6-10.3); EGFR African American 65.2 (>60); EGFR Non-African American 50.7 (>60); Globulin 4.6 g/dL (2-4); Total Bilirubin 0.5 mg/dL (0.2-1.0); Total Protein 6.9 g/dL (6.4-8.9)
[2017-01-16 00:54] LABS: Troponin I 0.05 ng/mL (<0.04)
[2017-01-16] MEDS ORDERED: Benzonatate CAP* 100 MG PO ONE (01:14)
[2017-01-16] MEDS ORDERED: NS 0.9% 1000 ML* 1,000 ML IV SCH (02:00)
[2017-01-16 02:09] LABS: Urine Bacteria Absent (Absent); Urine Bilirubin Negative (Negative); Urine Glucose Negative (Negative); Urine Nitrite Negative (Negative)
--- NOTE | 2017-01-16 02:09 | ED ---
Sohail Le Rebecca, scribed for Brissa Torres MD on 01/15/17 at 2237 . Complex/Multi-Sys Presentation - HPI Summary HPI Summary: Patient is an 81 y/o M who presents to ED c/o productive cough, fever, abdominal pain, decreased appetite and generalized weakness. Pt reports that his symptoms have gradually worsened over the past week. Pain is in the RUQ and is severe, ranked 8/10. Additionally notes that the region around his stents is painful, and warm with slight blood. Sx aggravated and alleviated by nothing. 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 Recent admission in September after a bacterial GI infection, treated by Dr. Mccabe. 81 yo male with new pneumonia with severe metastatic disease in a study at [facility]. he has received a dose of zosyn here and was called for orders for admission - History Of Current Complaint Chief Complaint: EDWeakness Hx Obtained From: Patient Onset/Duration: Gradual Onset, Worse Since - past week Timing: Constant Severity Initially: Severe - 8/10 Location: Pain At: - RUQ abdominal pain Aggravating Factor(s): Nothing Alleviating Factor(s): Nothing Associated Signs And Symptoms: Positive: Weakness - generalized, Cough - productive, Abdominal Pain - RUQ, Fever, Other - Decreased appetite; Pain, warmth and slight blood around his stents - Allergies/Home Medications Allergies/Adverse Reactions: Allergies Allergy/AdvReac Type Severity Reaction Status Date / Time Dofetilide [From Tikosyn] AdvReac Severe See Comment Verified 01/15/17 22:19 Home Medications: Home Medications Amlodipine Besylate 5 mg PO DAILY 01/16/17 [History Confirmed 01/16/17] Synthroid 25 MCG TAB* 25 mcg PO DAILY 01/16/17 [History Confirmed 01/16/17] Tessalon 100 MG CAP* 1 dose PO DAILY 01/16/17 [History Confirmed 01/16/17] PMH/Surg Hx/FS Hx/Imm Hx Endocrine/Hematology History: Reports: Hx Anticoagulant Therapy - XARELTO, Hx Anemia - iron deficiency Denies: Hx Diabetes, Hx Thyroid Disease, Hx Unexplained Bleeding Cardiovascular History: Reports: Hx Congestive Heart Failure - ACUTE DIASTOLIC CHF, Hx Hypertension, Other Cardiovascular Problems/Disorders - a-fib, cardiac arrhythmia Denies: Hx Deep Vein Thrombosis, Hx Hypercholesterolemia, Hx Myocardial Infarction, Hx Pacemaker/ICD, Hx Peripheral Vascular Disease Respiratory History: Reports: Hx Lung Cancer, Hx Pneumonia, Other Respiratory Problems/Disorders - PNA Denies: Hx Asthma, Hx Chronic Obstructive Pulmonary Disease (COPD), Hx Pulmonary Embolism GI History: Reports: Hx Diverticulosis, Hx Obstructive Bowel Denies: Hx Gall Bladder Disease, Hx Gastroesophageal Reflux Disease, Hx Gastrointestinal Bleed, Hx Ulcer, Hx Urosepsis History: Reports: Hx Benign Prostatic Hyperplasia Denies: Hx Kidney Stones, Hx Renal Disease Musculoskeletal History: Reports: Hx Tendonitis - 1978 ACHILLES TENDONITIS - NO PROBLEMS NOW Denies: Hx Arthritis, Hx Osteoporosis Sensory History: Reports: Hx Contacts or Glasses Denies: Hx Cataracts, Hx Glaucoma, Hx Hearing Aid, Hx Hearing Problem Opthamlomology History: Reports: Hx Contacts or Glasses Denies: Hx Cataracts, Hx Glaucoma Neurological History: Denies: Hx Dementia, Hx Headaches, Hx Migraine, Hx Seizures, Hx Transient Ischemic Attacks (TIA) Psychiatric History: Denies: Hx Anxiety, Hx Depression, Hx Schizophrenia, Hx Bipolar Disorder - Cancer History Cancer Type, 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 LEFT INGUINAL REPAIR W/MESH. 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 ERCP with biliary sphincterotomy and stent 11/29/2015. Right inguinal hernia repair 08/2015 Hx Anesthesia Reactions: No Infectious Disease History: No Infectious Disease History: Reports: Hx Shingles - 2014 Denies: Hx Hepatitis, Hx Human Immunodeficiency Virus (HIV), Traveled Outside the [place] in Last 30 Days - Family History Known Family History: Positive: Hypertension, Other - prostate CA Negative: Cardiac Disease, Diabetes Family History: FHx of CVA - Social History Alcohol Use: None Substance Use Type: Reports: None Hx Tobacco Use: No Smoking Status (MU): Never Smoked Tobacco Have You Smoked in the Last Year: No Review of Systems Positive: Fever, Other - Generalized weakness Positive: Cough - productive Positive: Abdominal Pain - RUQ, Other - Decreased appetite Positive: Other - Pain, warmth and slight blood around his stents All Other Systems Reviewed And Are Negative: Yes Physical Exam - Summary Physical Exam Summary: General: Well appearing, no pain distress Skin: Warm, Skin Color Reflects Adequate Perfusion, Dry Eyes: EOMI, NATI ENT: Pharynx normal, TMs normal Neck: Supple, nontender Respiratory: CTA, breath sounds present, no rhonchi, no wheezes, diffuse crackles Cardiovascular: RRR, no murmur, no rub, no gallop Abdomen: Soft, nontender, no guarding, no rebound, distended, periumbilical hernia that is completely reducible. Bowel: Present Musculoskeletal: JORDAN, No edema Neuro: Sensory/motor intact, A&Ox3, CN intact 2-12 Psych: Affect/mood appropriate Triage Information Reviewed: Yes Vital Signs On Initial Exam: Initial Vitals Temp Pulse Resp BP Pulse Ox 101.4 F 95 20 148/79 95 01/15/17 22:18 01/15/17 22:18 01/15/17 22:18 01/15/17 22:18 01/15/17 22:18 Vital Signs Reviewed: Yes - [place] Coma Scale Coma Scale Total: 15 Diagnostics - Vital Signs Vital Signs Temp Pulse Resp BP Pulse Ox 01/15/17 22:18 101.4 F 95 20 148/79 95 - Laboratory Lab Results: Lab Results 01/16/17 01/16/17 01/16/17 Range/Units 00:05 00:05 00:05 WBC 10.7 (3.5-10.8) 10^3/ul RBC 4.52 (4.0-5.4) 10^6/ul Hgb 13.8 L (14.0-18.0) g/dl Hct 43 (42-52) % MCV 94 (80-94) fL MCH 31 (27-31) pg MCHC 33 (31-36) g/dl RDW 20 H (10.5-15) % Plt Count 318 (150-450) 10^3/ul MPV 8 (7.4-10.4) um3 Neut % (Auto) 85.1 H (38-83) % Lymph % (Auto) 3.0 L (25-47) % [place] % (Auto) 10.2 H (1-9) % Eos % (Auto) 1.3 (0-6) % Baso % (Auto) 0.4 (0-2) % Absolute Neuts (auto) 9.1 H (1.5-7.7) 10^3/ul Absolute Lymphs (auto) 0.3 L (1.0-4.8) 10^3/ul Absolute Monos (auto) 1.1 H (0-0.8) 10^3/ul Absolute Eos (auto) 0.1 (0-0.6) 10^3/ul Absolute Basos (auto) 0 (0-0.2) 10^3/ul Absolute Nucleated RBC 0.01 10^3/ul Nucleated RBC % 0.1 INR (Anticoag Therapy) 2.19 H (0.89-1.11) APTT 39.7 H (26.0-36.3) seconds Sodium 139 (133-145) mmol/L Potassium 5.0 (3.5-5.0) mmol/L Chloride 104 (101-111) mmol/L Carbon Dioxide 30 (22-32) mmol/L Anion Gap 5 (2-11) mmol/L BUN 33 H (6-24) mg/dL Creatinine 1.35 H (0.67-1.17) mg/dL Est GFR ( Amer) 65.2 (>60) Est GFR (Non-Af Amer) 50.7 (>60) BUN/Creatinine Ratio 24.4 H (8-20) Glucose 115 H (70-100) mg/dL Lactic Acid (0.5-2.0) mmol/L Calcium 8.7 (8.6-10.3) mg/dL Total Bilirubin 0.50 (0.2-1.0) mg/dL AST 40 H (13-39) U/L ALT 19 (7-52) U/L Alkaline Phosphatase 459 H (34-104) U/L Troponin I 0.05 H* (<0.04) ng/mL Total Protein 6.9 (6.4-8.9) g/dL Albumin 2.3 L (3.2-5.2) g/dL Globulin 4.6 H (2-4) g/dL Albumin/Globulin Ratio 0.5 L (1-3) 01/16/ Range/Units 00:05 WBC (3.5-10.8) 10^3/ul RBC (4.0-5.4) 10^6/ul Hgb (14.0-18.0) g/dl Hct (42-52) % MCV (80-94) fL MCH (27-31) pg MCHC (31-36) g/dl RDW (10.5-15) % Plt Count (150-450) 10^3/ul MPV (7.4-10.4) um3 Neut % (Auto) (38-83) % Lymph % (Auto) (25-47) % [place] % (Auto) (1-9) % Eos % (Auto) (0-6) % Baso % (Auto) (0-2) % Absolute Neuts (auto) (1.5-7.7) 10^3/ul Absolute Lymphs (auto) (1.0-4.8) 10^3/ul Absolute Monos (auto) (0-0.8) 10^3/ul Absolute Eos (auto) (0-0.6) 10^3/ul Absolute Basos (auto) (0-0.2) 10^3/ul Absolute Nucleated RBC 10^3/ul Nucleated RBC % INR (Anticoag Therapy) (0.89-1.11) APTT (26.0-36.3) seconds Sodium (133-145) mmol/L Potassium (3.5-5.0) mmol/L Chloride (101-111) mmol/L Carbon Dioxide (22-32) mmol/L Anion Gap (2-11) mmol/L BUN (6-24) mg/dL Creatinine (0.67-1.17) mg/dL Est GFR ( Amer) (>60) Est GFR (Non-Af Amer) (>60) BUN/Creatinine Ratio (8-20) Glucose (70-100) mg/dL Lactic Acid 1.3 (0.5-2.0) mmol/L Calcium (8.6-10.3) mg/dL Total Bilirubin (0.2-1.0) mg/dL AST (13-39) U/L ALT (7-52) U/L Alkaline Phosphatase (34-104) U/L Troponin I (<0.04) ng/mL Total Protein (6.4-8.9) g/dL Albumin (3.2-5.2) g/dL Globulin (2-4) g/dL Albumin/Globulin Ratio (1-3) Result Diagrams: 01/16/17 00:05 01/16/17 00:05 Lab Statement: Any lab studies that have been ordered have been reviewed, and results considered in the medical decision making process. - Radiology CXR Xray Interpretation: Positive (See Comments) - DIFFUSE PULMONARY METASTASIS WITH INCREASED CONFLUENCE. GIVEN THESE DIFFUSE CHANGES A COEXISTENT INFILTRATE CANNOT BE EXCLUDED Radiology Interpretation Completed By: Radiologist - CT Chest/Abd/Pel CT CT Interpretation Completed By: Radiologist - Chest: innumerable bilateral lung metastases, similar by description to 10/10/[address] report. Confluent density in right upper lobe is probably new and could represent metastatic disease versus pneumonia; correlate clinically. Moderate right and small left pleural effusions appearing since prior exam. Right chest infusion port, catheter tip in mid SVC. COronary artery calcification. Actatic ascending aorta , 4.4 cm AP diameter. Abdomen/Pelvis: Biliary stent and associated pneumobilia. Nodular contour, question cirrhosis versus underlying liver masses. Scalloped contour along inferior right hepatic lobe, cannot exclude a poorly defined pericapsular cystic lesion. Indeterminate 2.3 cm left adrenal nodule. Multiple punctate calcifications central mesentery, possibly vascular. Large ascties. 8.7 cm left periumbilical hernia containing ascites. Small left inguinal region hernia containing fat. No bowel obstruction, colitis, or free air. Normal appendix. Diverticulosis colon without definite acute diverticulitis. Unremarkable pancreas, kidneys and gallbladder. - EKG 2228 Cardiac Rate: NL - 95 bpm EKG Rhythm: Sinus Rhythm EKG Interpretation: LVH, No STEMI Complex Multi-Symp Course/Dx - Diagnoses Provider Diagnoses: Pneumonia, Metastatic cancer - Physician Notifications Discussed Care Of Patient With: Fabrizio Knutson Time Discussed With Above Provider: 23:30 Instructed by Provider To: Other - Has been fired by this patient previously. Discussed care of patient with Dr. Scot Pan at 0153 who said he would admit the patient. Discharge - Discharge Plan Condition: Good Disposition: ADMITTED TO [facility] Referrals: Chris Veras MD [Primary Care Provider] - The documentation as recorded by the Sohail corado Rebecca accurately reflects the service I personally performed and the decisions made by me, Brissa Torres MD.
[2017-01-16] MEDS ORDERED: Benzonatate CAP* 100 MG PO PRN (03:51)
[2017-01-16] MEDS ORDERED: Ondansetron ODT TAB* 4 MG PO PRN (03:52)
[2017-01-16] MEDS: ZOSYN 3.375 GM Q8H per EXTENDED INFUSION IVPB SCH ×2 (04:10)
[2017-01-16] MEDS: Levothyroxine TAB* 25 MCG TAB PO SCH (05:43)
[2017-01-16] MEDS ORDERED: amLODIPine TAB* 5 MG PO SCH (09:00)
[2017-01-16] MEDS ORDERED: Rivaroxaban TAB(*) 20 MG TAB PO SCH (09:00)
[2017-01-16] MEDS ORDERED: Metoprolol Tartrate TAB* 50 mg PO SCH (09:00)
--- NOTE | 2017-01-16 09:12 | RAD ---
Indication: Metastatic disease, cough and abdominal pain. CT of the chest, abdomen and pelvis was performed without oral or IV contrast administration. Coronal and sagittal reconstructed images were obtained. There are large right pleural effusions and a small to moderate left pleural effusion noted. Multiple masses are noted throughout both lung escobedo consistent with extensive metastatic disease. The heart demonstrates no pericardial effusion. The liver is enlarged. Low density lesions are noted in the right lobe of the liver. Biliary stent is in place. Extensive ascites is noted. Left adrenal mass is noted measuring up to 2.4 cm. No hydronephrosis is noted. No retroperitoneal lymphadenopathy is noted. The urinary bladder is otherwise unremarkable. Periumbilical hernia containing fluid is noted. Prostate is enlarged. The colon is filled with stool. Pulmonary metastatic disease has progressed since previous exam of October 10, 2016. The amount of ascites has increased since previous exam of October 09, 2016. IMPRESSION: 1. Marked progression of extensive pulmonary metastasis with bilateral pleural effusions, larger on the right and moderate on the left. 2. Biliary stent is in place. Increasing amount of ascites is noted with a periumbilical hernia. 3. Left sided adrenal mass measuring 2.3 cm.
[2017-01-16] MEDS: Amiodarone TAB* 200 MG PO SCH (09:42)
[2017-01-16] MEDS: Acetaminophen TAB* 325 MG PO PRN (09:42)
[2017-01-16] MEDS ORDERED: Albuterol 2.5 MG/3 ML NEB.SOL* (0.083%) ONE ×2 (11:50→23:09)
[2017-01-16] MEDS ORDERED: Dexamethasone IV* 8 MG in NS 0.9% 50 ML* 50 ML IVPB ONE (11:58)
--- NOTE | 2017-01-16 12:15 | PN ---
Progress Note - Progress Note SOAP: Subjective: []CAT heard over-head while on unit. Pt. in respiratory distress with tachypnea , notable dyspnea, and hypoxia down to 50s. Pt. minimal responsive with short one word, notable difficulty with breathing. Admitted overnight and seen approx. [address] Pan. Medications: Acetaminophen (Tylenol Tab*) 650 mg PO Q6H PRN PRN Reason: FEVER Last Admin: 01/16/17 09:42 Dose: 650 mg Amiodarone HCl (Cordarone Tab*) 100 mg PO DAILY [facility] Last Admin: 01/16/17 09:42 Dose: 100 mg Amlodipine Besylate (Norvasc Tab*) 5 mg PO DAILY [facility] Last Admin: 01/16/17 09:44 Dose: 5 mg Benzonatate (Tessalon Cap*) 100 mg PO Q8H PRN PRN Reason: COUGH Last Admin: 01/16/17 04:11 Dose: 100 mg Sodium Chloride (Ns 0.9% 1000 Ml*) 1,000 mls @ 100 mls/hr IV PER RATE [facility] Last Admin: 01/16/17 03:54 Dose: 100 mls/hr Piperacillin Sod/Tazobactam (Sod 3.375 gm/ Sodium Chloride) 100 mls @ 25 mls/ hr IVPB Q8H [facility] Last Admin: 01/16/17 04:10 Dose: 25 mls/hr Levothyroxine Sodium (Synthroid Tab*) 25 mcg PO DAILY@0600 [facility] Last Admin: 01/16/17 05:43 Dose: 25 mcg Metoprolol Tartrate (Lopressor Tab*) 50 mg PO DAILY [facility] Last Admin: 01/16/17 09:42 Dose: 50 mg Ondansetron HCl (Zofran Odt Tab*) 4 mg PO Q6H PRN PRN Reason: NAUSEA/VOMITING Last Admin: 01/16/17 09:04 Dose: 4 mg Rivaroxaban (Xarelto (*)) 20 mg PO DAILY [facility] Objective: [] Vital Signs Temp Pulse Resp BP Pulse Ox 98.3 F 74 28 132/79 100 01/16/17 07:32 01/16/17 07:32 01/16/17 07:32 01/16/17 07:32 01/16/17 07:32 SEE CAT documentation for most recent VS with O2 SAT 89% with mask Alert, eyes open spontaneously, but limited responsiveness d/t significant resp. effort HRI, EKG pending LS wheezes throughout with dim. bases, RR 20-30 Large abd. +ascites Frail, cachectic Laboratory Results - last 24 hr 01/16/17 01/16/17 01/16/17 00:05 00:05 00:05 WBC 10.7 RBC 4.52 Hgb 13.8 L Hct 43 MCV 94 MCH 31 MCHC 33 RDW 20 H Plt Count 318 MPV 8 Neut % (Auto) 85.1 H Lymph % (Auto) 3.0 L [place] % (Auto) 10.2 H Eos % (Auto) 1.3 Baso % (Auto) 0.4 Absolute Neuts (auto) 9.1 H Absolute Lymphs (auto) 0.3 L Absolute Monos (auto) 1.1 H Absolute Eos (auto) 0.1 Absolute Basos (auto) 0 Absolute Nucleated RBC 0.01 Nucleated RBC % 0.1 INR (Anticoag Therapy) 2.19 H APTT 39.7 H Sodium 139 Potassium 5.0 Chloride 104 Carbon Dioxide 30 Anion Gap 5 BUN 33 H Creatinine 1.35 H Est GFR ( Amer) 65.2 Est GFR (Non-Af Amer) 50.7 BUN/Creatinine Ratio 24.4 H Glucose 115 H Lactic Acid Calcium 8.7 Total Bilirubin 0.50 AST 40 H ALT 19 Alkaline Phosphatase 459 H Troponin I 0.05 H* Total Protein 6.9 Albumin 2.3 L Globulin 4.6 H Albumin/Globulin Ratio 0.5 L Urine Color Urine Appearance Urine pH Ur Specific [place] Urine Protein Urine Ketones Urine Blood Urine Nitrate Urine Bilirubin Urine Urobilinogen Ur Leukocyte Esterase Urine WBC (Auto) Urine RBC (Auto) Urine Bacteria Hyaline Casts Urine Glucose Urine Ascorbic Acid 01/16/17 01/16/17 01/16/17 00:05 01:40 04:00 WBC RBC Hgb Hct MCV MCH MCHC RDW Plt Count MPV Neut % (Auto) Lymph % (Auto) [place] % (Auto) Eos % (Auto) Baso % (Auto) Absolute Neuts (auto) Absolute Lymphs (auto) Absolute Monos (auto) Absolute Eos (auto) Absolute Basos (auto) Absolute Nucleated RBC Nucleated RBC % INR (Anticoag Therapy) APTT Sodium Potassium Chloride Carbon Dioxide Anion Gap BUN Creatinine Est GFR ( Amer) Est GFR (Non-Af Amer) BUN/Creatinine Ratio Glucose Lactic Acid 1.3 1.2 Calcium Total Bilirubin AST ALT Alkaline Phosphatase Troponin I Total Protein Albumin Globulin Albumin/Globulin Ratio Urine Color Melisa Urine Appearance Cloudy Urine pH 5.0 Ur Specific [place] 1.027 Urine Protein 2+(100 mg/dl) H Urine Ketones Negative Urine Blood Negative Urine Nitrate Negative Urine Bilirubin Negative Urine Urobilinogen Negative Ur Leukocyte Esterase 1+ H Urine WBC (Auto) 2+(11-20/hpf) H Urine RBC (Auto) Trace(0-2/hpf) Urine Bacteria Absent Hyaline Casts Present H Urine Glucose Negative Urine Ascorbic Acid * H Assessment: []81 yo m with metastatic colo-rectal cancer admitted with progressive decline and now respiratory distress likely r/t combination of progressive disease, pleural effusions, inc. abd. pressure from ascites, and right pneumonia. Case discussed with Dr. Kaufman (Clearance Coordinator). Plan: []Transfer to ICU, appreciate intesivist expertise
[2017-01-16 12:23] LABS: FIO2 15
[2017-01-16 12:32] LABS: PCO2 Arterial 111 mmHg (35-45)
[2017-01-16] MEDS ORDERED: Vancomycin(*) 1,000 MG in NS 0.9% 250 ML* 250 ML IVPB ONE (13:00)
[2017-01-16] MEDS ORDERED: NS 0.9% 500 ML BAG* 500 ML IV SCH (13:00)
--- NOTE | 2017-01-16 13:11 | RAD ---
Indication: Hypoxia. Single frontal view of the chest performed at 1245 hours was reviewed. Comparison is made with previous exam dated January 15, 2017. Extensive pulmonary masses are noted. Bilateral pleural effusions are noted. Cardiomegaly is noted. IMPRESSION: Multiple masses with bilateral pleural effusions consistent with metastatic disease unchanged from January 15, 2017. IMPRESSION: NO ACTIVE CARDIOPULMONARY DISEASE IS NOTED.
[2017-01-16 13:45] LABS: Hematocrit 48 % (42-52); Hemoglobin 14.4 g/dl (14.0-18.0); Mean Corpuscular HGB Conc 30 g/dl (31-36); Mean Corpuscular Hemoglobin 30 pg (27-31); Mean Corpuscular Volume 97 fL (80-94); Mean Platelet Volume 8 um3 (7.4-10.4); Red Cell Distribution Width 20 % (10.5-15); White Blood Count 12.2 10^3/ul (3.5-10.8)
[2017-01-16 13:48] LABS: Comments Flag Yes
[2017-01-16 13:52] LABS: EPAP 7; FIO2 100; IPAP 16; Resp Rate 20
[2017-01-16 13:55] LABS: Albumin 2.4 g/dL (3.2-5.2); BUN/Creatinine Ratio 20.5 (8-20); Calcium 8.6 mg/dL (8.6-10.3); EGFR African American 51.4 (>60); Globulin 4.7 g/dL (2-4); Potassium 5.2 mmol/L (3.5-5.0); Total Bilirubin 0.5 mg/dL (0.2-1.0); Total Protein 7.1 g/dL (6.4-8.9)
[2017-01-16] MEDS ORDERED: Vancomycin per Pharmacy* NOTE FOLLOW UP PRN (13:55)
[2017-01-16 14:01] LABS: PCO2 Arterial 73 mmHg (35-45)
--- NOTE | 2017-01-16 14:26 | CONSULT ---
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 Progressive fatigue, abdominal discomfort, distended abdomen. Decreased appetite+. Sputum+. No chest pain/diarrhea/n/v/palpitations. He is currently on immunotherapy as per oncology DIRECTOR OF [employer]COLLEGI[employer]THLET[employer] giving me history. Initial ER vitals 101.4F , HR 95, RR 20, BP 148/79, sat 95%. Patient was admitted for suspected pneumonia. A CT of the chest as well as Chest xray demonstrated progressive pulmonary metastatic lesions as well as possible consolidation/confluence in the right middle/upper lobes, as well as moderate Right pleural effusion greater than left and large amount of abdominal ascites. He was started on antibiotics, given IVF. While admitted to the medical floor, patient developed respiratory distress, tachypnea, hypoxia to 70s, becoming more lethargic. He was placed on oxygen and brought to ICU. Unable to obtain history from patient due to mental status and respiratory distress. He was placed on NIV. Initial ABG done showing respiratory acidosis, with mild metabolic acidosis. Repeat CXR with RUL/RML patchy opacity. ROS: unable to obtain due to mental status change and respiratory distress PMHx: Metastatic Mclean-rectal Ca on Immunotherapy at [facility], HTN, BPH, Afib , Diastolic dysfunction, hypothyroidism. PSHx: Left inguinal hernia repair, Small bowerl tumour resection 2014, ERCP with biliary sphincterotomy an stent 11/2015, Right Inguinal Hernia repair 2015. Family History: HTN, CVA, Prostate CA Social History: Alcohol none, Smoking none, Drug use none; one son. Allergies: Allergies Allergy/AdvReac Type Severity Reaction Status Date / Time Dofetilide [From Tikosyn] AdvReac Severe See Comment Verified 01/15/17 22:19 Home Medications: Amiodarone TAB* [Cordarone Tab*] 100 mg PO DAILY 11/17/14 [History Confirmed ] Rivaroxaban TAB(*) [Xarelto 20 mg] 20 mg PO DAILY 10/10/16 [History Confirmed ] Metoprolol Tartrate TAB* [Lopressor TAB*] 50 mg PO DAILY #30 10/17/16 [Rx Confirmed 01/16/17] Amlodipine Besylate 5 mg PO DAILY 01/16/17 [History Confirmed 01/16/17] Synthroid 25 MCG TAB* 25 mcg PO DAILY 01/16/17 [History Confirmed 01/16/17] Tessalon 100 MG CAP* 1 dose PO DAILY 01/16/17 [History Confirmed 01/16/17] Tele: Afib, rate controlled in 60s, irregular Vitals: Vital Signs Temp 96.0 F 01/16/17 12:51 Pulse 60 01/16/17 13:15 Resp 38 01/16/17 13:15 BP 117/75 01/16/17 13:15 Pulse Ox 96 01/16/17 13:15 Intake & Output 01/15/17 01/16/17 01/16/17 18:59 06:59 18:59 Intake Total 100 100 Balance 100 100 Weight 150 lb 12.8 oz Intake: IV Fluids 100 Oral 0 100 Other: # Bowel Movements 1 Estimated Stool Amount Small O2/Vent: NIV 16/7, 100%, rr 30-40, TV 380-400 Infusions: NS 125cc/hr Current Medications: Acetaminophen (Tylenol Tab*) 650 mg PO Q6H PRN PRN Reason: FEVER Last Admin: 01/16/17 09:42 Dose: 650 mg Amiodarone HCl (Cordarone Tab*) 100 mg PO DAILY [facility] Last Admin: 01/16/17 09:42 Dose: 100 mg Amlodipine Besylate (Norvasc Tab*) 5 mg PO DAILY [facility] Last Admin: 01/16/17 09:44 Dose: 5 mg Benzonatate (Tessalon Cap*) 100 mg PO Q8H PRN PRN Reason: COUGH Last Admin: 01/16/17 04:11 Dose: 100 mg Sodium Chloride (Ns 0.9% 500 Ml Bag*) 500 mls @ 1,000 mls/hr IV .BOLUS [facility] Last Admin: 01/16/17 14:30 Dose: 1,000 mls/hr Sodium Chloride (Ns 0.9% 1000 Ml*) 1,000 mls @ 125 mls/hr IV PER RATE [facility] Last Admin: 01/16/17 14:30 Dose: 125 mls/hr Cefepime HCl 2 gm/ Sodium (Chloride) 50 mls @ 100 mls/hr IVPB Q12H [facility] Levothyroxine Sodium (Synthroid Tab*) 25 mcg PO DAILY@0600 [facility] Last Admin: 01/16/17 05:43 Dose: 25 mcg Metoprolol Tartrate (Lopressor Tab*) 50 mg PO DAILY [facility] Last Admin: 01/16/17 09:42 Dose: 50 mg Ondansetron HCl (Zofran Odt Tab*) 4 mg PO Q6H PRN PRN Reason: NAUSEA/VOMITING Last Admin: 01/16/17 09:04 Dose: 4 mg Pharmacy Consult (Vancomycin Per Pharmacy*) 1 note FOLLOW UP . PRN PRN Reason: PER PROTOCOL Physical Exam: General: resp distress+, more awake/alert now after NIV, not diaphoretic; malnourished appearing Head: normocephalic, atraumatic HEENT: no pallor, no icterus, moist mucous membranes Neck: soft, supple, no jvd, no stridor CVS: normal rate, irregular, no murmur Resp: bilateral air entry, +rhales bilaterally, no wheeze, no rhonchi, acc muscle use initially but now improved Abdomen: soft, nontender, +distended, bowel sounds dec Ext: pulses+, cool ext, no edema; initially mottling in LE but improved with NIV , now resolved Skin: intact, no breakdown, no dryness Neuro: was lethargic, now more awake/alert, able to answer some questions, less distress, moves ext. Labs: Laboratory Results - last 24 hr 01/16/17 01/16/17 01/16/17 00:05 00:05 00:05 WBC 10.7 RBC 4.52 Hgb 13.8 L Hct 43 MCV 94 MCH 31 MCHC 33 RDW 20 H Plt Count 318 MPV 8 Neut % (Auto) 85.1 H Lymph % (Auto) 3.0 L [place] % (Auto) 10.2 H Eos % (Auto) 1.3 Baso % (Auto) 0.4 Absolute Neuts (auto) 9.1 H Absolute Lymphs (auto) 0.3 L Absolute Monos (auto) 1.1 H Absolute Eos (auto) 0.1 Absolute Basos (auto) 0 Absolute Nucleated RBC 0.01 Nucleated RBC % 0.1 INR (Anticoag Therapy) 2.19 H APTT 39.7 H Patient Temperature ABG pH ABG pCO2 ABG pO2 ABG HCO3 ABG O2 Saturation ABG Base Excess Respiration Rate O2 Delivery Device Ventilator Type Vent Mode FiO2 Inspiratory Time PEEP Pressure Support Pressure Control EPAP IPAP BiPAP Sodium 139 Potassium 5.0 Chloride 104 Carbon Dioxide 30 Anion Gap 5 BUN 33 H Creatinine 1.35 H Est GFR ( Amer) 65.2 Est GFR (Non-Af Amer) 50.7 BUN/Creatinine Ratio 24.4 H Glucose 115 H Lactic Acid Calcium 8.7 Total Bilirubin 0.50 AST 40 H ALT 19 Alkaline Phosphatase 459 H Ammonia Lactate Dehydrogenase Total Creatine Kinase Troponin I 0.05 H* Total Protein 6.9 Albumin 2.3 L Globulin 4.6 H Albumin/Globulin Ratio 0.5 L Amylase Lipase Urine Color Urine Appearance Urine pH Ur Specific [place] Urine Protein Urine Ketones Urine Blood Urine Nitrate Urine Bilirubin Urine Urobilinogen Ur Leukocyte Esterase Urine WBC (Auto) Urine RBC (Auto) Urine Bacteria Hyaline Casts Urine Glucose Urine Ascorbic Acid Blood Type Antibody Screen 01/16/17 01/16/17 01/16/17 00:05 01:40 04:00 WBC RBC Hgb Hct MCV MCH MCHC RDW Plt Count MPV Neut % (Auto) Lymph % (Auto) [place] % (Auto) Eos % (Auto) Baso % (Auto) Absolute Neuts (auto) Absolute Lymphs (auto) Absolute Monos (auto) Absolute Eos (auto) Absolute Basos (auto) Absolute Nucleated RBC Nucleated RBC % INR (Anticoag Therapy) APTT Patient Temperature ABG pH ABG pCO2 ABG pO2 ABG HCO3 ABG O2 Saturation ABG Base Excess Respiration Rate O2 Delivery Device Ventilator Type Vent Mode FiO2 Inspiratory Time PEEP Pressure Support Pressure Control EPAP IPAP BiPAP Sodium Potassium Chloride Carbon Dioxide Anion Gap BUN Creatinine Est GFR ( Amer) Est GFR (Non-Af Amer) BUN/Creatinine Ratio Glucose Lactic Acid 1.3 1.2 Calcium Total Bilirubin AST ALT Alkaline Phosphatase Ammonia Lactate Dehydrogenase Total Creatine Kinase Troponin I Total Protein Albumin Globulin Albumin/Globulin Ratio Amylase Lipase Urine Color Melisa Urine Appearance Cloudy Urine pH 5.0 Ur Specific [place] 1.027 Urine Protein 2+(100 mg/dl) H Urine Ketones Negative Urine Blood Negative Urine Nitrate Negative Urine Bilirubin Negative Urine Urobilinogen Negative Ur Leukocyte Esterase 1+ H Urine WBC (Auto) 2+(11-20/hpf) H Urine RBC (Auto) Trace(0-2/hpf) Urine Bacteria Absent Hyaline Casts Present H Urine Glucose Negative Urine Ascorbic Acid * H Blood Type Antibody Screen 01/16/17 01/16/17 01/16/17 12:15 13:12 13:12 WBC RBC Hgb Hct MCV MCH MCHC RDW Plt Count MPV Neut % (Auto) Lymph % (Auto) [place] % (Auto) Eos % (Auto) Baso % (Auto) Absolute Neuts (auto) Absolute Lymphs (auto) Absolute Monos (auto) Absolute Eos (auto) Absolute Basos (auto) Absolute Nucleated RBC Nucleated RBC % INR (Anticoag Therapy) APTT Patient Temperature Not Reportable ABG pH 7.02 L* ABG pCO2 111 H* ABG pO2 67 L ABG HCO3 20.1 ABG O2 Saturation 87.7 L ABG Base Excess -5.7 L Respiration Rate Not Reportable O2 Delivery Device oxymask Ventilator Type Not Reportable Vent Mode Not Reportable FiO2 15 Inspiratory Time Not Reportable PEEP Not Reportable Pressure Support Not Reportable Pressure Control Not Reportable EPAP Not Reportable IPAP Not Reportable BiPAP Not Reportable Sodium 142 Potassium 5.2 H Chloride 106 Carbon Dioxide 27 Anion Gap 9 BUN 34 H Creatinine 1.66 H Est GFR ( Amer) 51.4 Est GFR (Non-Af Amer) 40.0 BUN/Creatinine Ratio 20.5 H Glucose 145 H Lactic Acid Calcium 8.6 Total Bilirubin 0.50 AST 42 H ALT 19 Alkaline Phosphatase 451 H Ammonia 45 Lactate Dehydrogenase Total Creatine Kinase 127 Troponin I Total Protein 7.1 Albumin 2.4 L Globulin 4.7 H Albumin/Globulin Ratio 0.5 L Amylase 82 Lipase 15 Urine Color Urine Appearance Urine pH Ur Specific [place] Urine Protein Urine Ketones Urine Blood Urine Nitrate Urine Bilirubin Urine Urobilinogen Ur Leukocyte Esterase Urine WBC (Auto) Urine RBC (Auto) Urine Bacteria Hyaline Casts Urine Glucose Urine Ascorbic Acid Blood Type Antibody Screen 01/16/17 01/16/17 01/16/17 13:12 13:12 13:12 WBC 12.2 H RBC 4.90 Hgb 14.4 Hct 48 MCV 97 H MCH 30 MCHC 30 L RDW 20 H Plt Count 393 MPV 8 Neut % (Auto) 84.2 H Lymph % (Auto) 8.9 L [place] % (Auto) 5.0 Eos % (Auto) 1.1 Baso % (Auto) 0.8 Absolute Neuts (auto) 10.3 H Absolute Lymphs (auto) 1.1 Absolute Monos (auto) 0.6 Absolute Eos (auto) 0.1 Absolute Basos (auto) 0.1 Absolute Nucleated RBC 0.01 Nucleated RBC % 0.1 INR (Anticoag Therapy) 1.36 H APTT 32.7 Patient Temperature ABG pH ABG pCO2 ABG pO2 ABG HCO3 ABG O2 Saturation ABG Base Excess Respiration Rate O2 Delivery Device Ventilator Type Vent Mode FiO2 Inspiratory Time PEEP Pressure Support Pressure Control EPAP IPAP BiPAP Sodium Potassium Chloride Carbon Dioxide Anion Gap BUN Creatinine Est GFR ( Amer) Est GFR (Non-Af Amer) BUN/Creatinine Ratio Glucose Lactic Acid 2.7 H* Calcium Total Bilirubin AST ALT Alkaline Phosphatase Ammonia Lactate Dehydrogenase Total Creatine Kinase Troponin I Total Protein Albumin Globulin Albumin/Globulin Ratio Amylase Lipase Urine Color Urine Appearance Urine pH Ur Specific [place] Urine Protein Urine Ketones Urine Blood Urine Nitrate Urine Bilirubin Urine Urobilinogen Ur Leukocyte Esterase Urine WBC (Auto) Urine RBC (Auto) Urine Bacteria Hyaline Casts Urine Glucose Urine Ascorbic Acid Blood Type Antibody Screen 01/16/17 01/16/17 01/16/17 13:12 13:42 13:45 WBC RBC Hgb Hct MCV MCH MCHC RDW Plt Count MPV Neut % (Auto) Lymph % (Auto) [place] % (Auto) Eos % (Auto) Baso % (Auto) Absolute Neuts (auto) Absolute Lymphs (auto) Absolute Monos (auto) Absolute Eos (auto) Absolute Basos (auto) Absolute Nucleated RBC Nucleated RBC % INR (Anticoag Therapy) APTT Patient Temperature Not Reportable ABG pH 7.15 L* ABG pCO2 73 H* ABG pO2 125 H ABG HCO3 20.8 ABG O2 Saturation 98.2 H ABG Base Excess -5.2 L Respiration Rate 20 O2 Delivery Device Ventilator Type Not Reportable Vent Mode Not Reportable FiO2 100 Inspiratory Time Not Reportable PEEP Not Reportable Pressure Support Not Reportable Pressure Control Not Reportable EPAP 7 IPAP 16 BiPAP Not Reportable Sodium Potassium Chloride Carbon Dioxide Anion Gap BUN Creatinine Est GFR ( Amer) Est GFR (Non-Af Amer) BUN/Creatinine Ratio Glucose Lactic Acid Calcium Total Bilirubin AST ALT Alkaline Phosphatase Ammonia Lactate Dehydrogenase 192 Total Creatine Kinase Troponin I Total Protein Albumin Globulin Albumin/Globulin Ratio Amylase Lipase Urine Color Urine Appearance Urine pH Ur Specific [place] Urine Protein Urine Ketones Urine Blood Urine Nitrate Urine Bilirubin Urine Urobilinogen Ur Leukocyte Esterase Urine WBC (Auto) Urine RBC (Auto) Urine Bacteria Hyaline Casts Urine Glucose Urine Ascorbic Acid Blood Type O Positive Antibody Screen Negative Imaging: cxr 01/16 - bilateral metastatic lesions+; RUL/RML patchy opacity+ CT chest 01/15 - reviewed - moderate right pleural effusion+, smaller left effusion+, bilateral met lesions in lungs, Ride sided patchy opacity/ consolidation; abdominal ascites+, hepatic lesions+ Assessment: 81y M w/ pmhx of 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 Progressive fatigue, abdominal discomfort, distended abdomen. Decreased appetite+. Sputum+. Found febrile. Became hypoxic, tachypneic, found to be in respiratory acidosis, req NIV in ICU. -Acute Hypercapneic and Hypoxic Respiratory Failure -Right upper/middle consolidation/pneumonia -Right moderate pleural effusion -Hyperlactatemia -EMILE, pre-renal vs septic ATN -hyperkalemia -Coagulopathy, likely sepsis induced -Severe Sepsis -Abdominal Ascites -Encephelopathy, metabolic/toxic -Metastatic colo-rectal Ca to lung/liver Plan: Neuro- likely encephelopathy from hypercapnea and sepsis; improving now with NIV and ventilation support. neuro checks. asp prec. fall prec. CVS- hemodyn stable. IVF NS bolus [id number] now, cont NS infusion. watch i/o. Cont Zosyn and Vanco for pneumonia/severe sepsis. trend lactic acid. No ind for pressors. Blood cultures pending. sputum cx if possible. Remains in Afib but rate controlled; hold any BB/CCB. Hold AC till further noticed due to declining renal function. Coagulopathy noted but improved today. No ind for FFP, which was discussed earlier. Peripheral mottling improved with NIV. Resp- NIV, ABG repeat improved pH but still not normalized. Mental status improved. No sig volume overload in lungs. USG of right lung with posterior effusion likely moderate. Bronchodilators prn. No ind for steroids yet. IV abx for HCAP coverage. Sputum cx. CT chest and CXR reviewed. WIll plan for thoracentesis of right but likely to do paracentesis first due to ongoing resp distress. ID- WBC 12, was febrile. Cover for HCAP given metastatic CA, on immunotherapy and hospitalizations. Zosyn (day#2), Vanco (day#1). Alk phos elevated, biliary stent 2016, eval for cholecystitis. GI- NPO on NIV. Pepcid IV. Alk phos elevated; obtain RUQ usg to eval for cholecystitis. Noted hepatic mets. Oncology following for metastatic colo- rectal ca. Large ascites on bedside USG, will perform paracentesis today. Renal- EMILE noted, making urine. Cont IVF NS 125cc/hour. K noted 5.2. trend lactic acid. ly cathetor indicated. Heme- stable hg. plt stable. hold AC. Coagulopathy improved today, no FFP or VitK given, likely was from ongoing sepsis. Endo- FS as needed. Musculsk- bedrest for now. pressure ulcer prophylaxis Wounds- none Nutrition- NPO while on NIV. DVT prophylaxis: SCDs GI prophylaxis: pepcid Central Line: no, right chest wall port+ Arterial Line: no Ly Cathetor: no Disposition: ICU for severe sepsis, pneumonia, hypercap resp failure Code Status: Full code; need to discuss with patient and son about goals of care if sepsis were to progress given metastatic cancer. Would intubation or CPR be appropriate. updated son on phone about current status of patient when patient arrived in ICU. Total Critical Care time is 60 minutes, excluding procedures/teaching Soto Kaufman MD Project Coach (Electronically Signed)
[2017-01-16] MEDS: NS 0.9% 1000 ML* 1,000 ML IV SCH ×2 (14:30→21:35)
[2017-01-16] MEDS: Cefepime(*) 2 GM in NS 0.9% 50 ML* 50 ML IVPB SCH (16:01)
--- NOTE | 2017-01-16 16:08 | RAD ---
INDICATION: Sepsis. Elevated alkaline phosphatase COMPARISON: CT January 16, 2017 TECHNIQUE: Longitudinal and transverse scans of the right upper quadrant were obtained. Doppler interrogation of the hepatic and portal venous system was performed. FINDINGS: Liver: The liver is heterogeneous with left lobe predominance. The liver measures 13.9 cm in cephalocaudal dimension. Vessels: There is normal hepatic and portal venous flow. Bile ducts: There is no evidence of intrahepatic or extrahepatic ductal dilatation. There is artifact from pneumobilia. The biliary stent is not well evaluated. Gallbladder: The gallbladder wall is not significantly thickened given the presence of ascites. The wall measures 0.3 cm. There is biliary sludge. Pancreas: Not well evaluated Right kidney: The right kidney is normal in size and echogenicity. There are no masses or calculi. There is no evidence of hydronephrosis. The right kidney measures 9.3 x 3.9 x 5.8 cm. IVC and aorta: The aorta and superior vena cava appear normal. Fluid: There is no ascites. Other: None. IMPRESSION: LIMITED STUDY. LARGE AMOUNT OF ASCITES. BILIARY SLUDGE. NO SIGNIFICANT THICKENING OF THE GALLBLADDER WALL.
[2017-01-16] MEDS ORDERED: Albumin Human 5%* 250 ML in PREMIX* 0 ML IV STA (16:30)
--- NOTE | 2017-01-16 17:29 | PN ---
Progress Note - Progress Note Note: Abdominal Paracentesis Procedure Note Indication: massive abdominal ascites associated with respiratory distress Informed consent obtained, placed in bedside chart. Risks and benefits of procedure, including but not limited to hemorrhage, bowel perforation, infection were discussed. -Previous imaging and lab work (coags/platelets), medications were reviewed. -Full sterile precautions with Chlorhexidine/full drapes/gowns/gloves were utilized. -Ultrasound was used to visualize the appropriate abdominal site -Right lateral portion of abdomen was marked, SC lidocaine used for local anesthesia. -18 gauge needle was used to enter pleural space. Entry into abdominal cavity confirmed with return of serous fluid, and drainage cathetor was passed into space with good return of fluid to check confirmation -Fluid was drained in amount of 5050 cc -No immediate complications or hemodynamic instability during drainage noted -Cathetor was removed after drainage and dressing applied to chest wall site -Fluid sent for cell count/cytology/gram stain/culture and other indicated lab analysis Patient tolerated procedure well, no immediate complications noted. EBL - none Will give 2-3 5% albumin infusion post drainage now. Soto Kaufman MD Communications Consultant (electronically signed)
[2017-01-16] MEDS ORDERED: Ondansetron INJ* 2 MG/ML VIAL ONE (18:06)
[2017-01-16] MEDS ORDERED: Ondansetron INJ* 2 MG/ML VIAL IV PRN (18:18)
[2017-01-16] MEDS ORDERED: Albumin Human 5%* 250 ML in PREMIX* 0 ML IV ONE (19:00)
[2017-01-16 19:07] LABS: Body Fluid WBC 1085 /mcL
[2017-01-16 19:56] LABS: Body Fluid Appearance Cloudy; Body Fluid Total Cells Counted 100
--- NOTE | 2017-01-16 20:00 | HP ---
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 HISTORY OF PRESENT ILLNESS: Mr. Lerner is an 81-year-old male who was originally diagnosed with a small bowel cancer in April of 2015. At that time , he had it resected at [facility]. This was a 4 cm mass with 6 out of 13 involved lymph nodes. Chemotherapy was recommended but refused. He subsequently was treated with chemotherapy for recurrence at [facility] in [place] with FOLFOX. He was changed to Xeloda and Avastin. 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 Liver lesions were stable. He also has subclavian vein thrombosis. He was continued on Avastin. He was admitted to our hospital from 10/09/16 to 10/27/16. At that time, he had colitis and also some evidence for PPE. He had ulceration on his penis which is felt to most likely be a fixed drug eruption and not a reaction to the Xeloda. He also had Hafnia in his blood. By the time of discharge, he was doing somewhat better and was resumed on Xeloda and Avastin in October of 2016. More recently, he has had progression of disease and was seen for another opinion at [facility] in [place]. He was started approximately 2 weeks ago on PD-1 drug of pembrolizumab. He reports having tolerated it well. The patient presented to the emergency room last evening complaining of fever, productive cough, and abdominal pain. In addition, he reports he has been having a decreased appetite and feeling much more fatigued recently. His symptoms have been increasing over the last week. He does have stents in place in the biliary tree and reports that he is having more pain in that right upper quadrant. He was evaluated by the emergency room doctor. CT scan was obtained and compared to prior CT scan of September 2016. There was marked progression in terms of the lung lesions with multiple growing new lesions bilaterally, enlarging pleural effusions greater on the right than on the left, marked ascites which is much more so than when seen on the CT scan of the chest in September and also to my view a right-sided pneumonia. He was given 1 dose of Zosyn in the emergency room. An attempt was made to admit the patient to the hospitalist service but he refused to see Dr. Knutson as he has in the past who is the covering hospitalist last night. Orders were called in and the patient seen this morning for completion of his admission. When seen this morning, he had difficulty speaking more than a few words at a time. He reported that he has continued to feel worse over the past week or so but does report feeling better this morning than he had yesterday before starting on antibiotics. Denied any shaking, chills or sweats but does complain of a cough and low grade fever. Pain is still present in the right upper quadrant up to 810 and has received overnight narcotics. PAST MEDICAL HISTORY: Otherwise significant for hypertension, atrial fibrillation, congestive heart failure, left inguinal hernia repair, right inguinal hernia repair. No diabetes, [place] or CVA. For more complete details of his previous treatment for his small bowel cancer, please see the admission note of 10/10/16. MEDICATIONS: At the time of admission include: 1. Amiodarone 100 mg. 2. Amlodipine 5 mg daily. 3. Synthroid 25 mcg daily. 4. Metoprolol 50 mg. ALLERGIES: No known medical allergies. FAMILY HISTORY: Prostate cancer both in his brother and his father. No other family history of malignancies. SOCIAL HISTORY: He has never been a smoker. 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 Five children. REVIEW OF SYSTEMS: As discussed above. Prior DVT in the right arm. Significant recent decrease in appetite and weight loss. Apparently, no significant change in bowel or bladder. PHYSICAL EXAMINATION GENERAL: An 81-year-old male who appears to be in a mild respiratory distress, has difficulty with word just a few words at a time. VITAL SIGNS: Temperature 101.4 in the emergency room, pulse 80s to 90s, blood pressure 143/82 in the emergency room and 132/79 when seen, respiratory rate mid 20s. HEENT: PERRL. EOMI. Slightly dry mucous membranes. NECK: No palpable cervical, supraclavicular, or axillary adenopathy. LUNGS: Decreased breath sounds at the bases and slightly rhonchorous but no rales. No wheezes. HEART: Regular rate and rhythm without murmurs, rubs or gallops. ABDOMEN: Positive bowel sounds. Mild tenderness especially in the right upper quadrant without guarding or rebound. EXTREMITIES: No clubbing, cyanosis, or edema. No significant petechiae. LABORATORY STUDIES: CBC with a white count of 10,700, hematocrit 43, hemoglobin 13.8, platelet count 318,000. Chemistry studies: Sodium 139, potassium 5.0, chloride 104, bicarb 30, BUN 33, creatinine 1.35, lactic acid 1.3 , transaminases are minimally abnormal, alk phos elevated at 459, albumin of 2.3. INR of 2.19 with a PTT of 39.7. CT scan as discussed above with bilateral pleural effusions. Large amount of ascites. Multiple increasing lung nodules and likely right pneumonia. IMPRESSION: 1. An 81-year-old male with widely metastatic small bowel carcinoma, recently started on a clinical trial through [facility] who presents with respiratory compromise. He has multiple reasons for this. He has been started on Zosyn at a standard doses. I believe that a major contributory factor to his respiratory compromise is the amount of fluid, both bilateral pleural effusions and marked ascites. I believe it will be in his best interest to have the ascites removed and also cultured. On the past admission, the patient has been extremely reluctant to listen to standard medical advice at times and has wished to do things in his own manner. On previous admission when code status had been discussed with him, he had wished to be a full code. He appears to have deteriorated significantly from the time he was seen in the hospital in October of this year. I am extremely worried that his respiratory status may not improve during this admission. He will need to be watched carefully in addition to the interventions discussed above. 2. Metastatic bowel cancer. He has recently been started on pembrolizumab , and unless he improve significantly during this admission, it is unlikely that he will be able to resume this even though he just recently started on a clinical trial. [id number]/[facility] #: [id number] [facility]
[2017-01-16 20:10] LABS: PCO2 Arterial 81 mmHg (35-45)
[2017-01-16] MEDS ORDERED: Succinylcholine* 20 MG/ML 10 ML VIAL ONE (20:17)
[2017-01-16] MEDS ORDERED: Propofol* 100 ML ONE (20:22)
[2017-01-16] MEDS ORDERED: Propofol* 10 MG/ML 20 ML BTL IV PUSH ONE (20:25)
[2017-01-16] MEDS ORDERED: NS 0.9% 1000 ML* 1,000 ML IV ONE (20:34)
--- NOTE | 2017-01-16 20:58 | PN ---
Hospitalist Progress Note Called to bedside for respiratory distress. Noted on arrival that patient was lethargic and had vomited he was minimally responsive. Resp trate was at 30. o2 sat 90 percent. Intubation performed see procedure noted. BP post intubation 90/50 liter bolus given. propfol at 30 mcg, if bp does not improve will add levophed to maintain map >60, Continue with broad spect abx for now, family updated on plan of care, icu attending updated.
--- NOTE | 2017-01-16 21:27 | RAD ---
INDICATION: Metastatic lung cancer . Intubation COMPARISON: Chest x-ray January 16, 2017 TECHNIQUE: An AP portable view obtained at 28 hours is submitted. FINDINGS: Bones/Soft Tissues: There are no acute bony findings. There is an endotracheal tube in satisfactory position. A nasogastric tube passes normally through the mediastinum. There is a right-sided Pvblip-y-Ztja catheter terminating in the superior vena cava Cardiomediastinal: The cardiomediastinal silhouette is unchanged. Lungs: Extensive pulmonary metastasis with confluence, unchanged. Pleura: Suspect tiny bilateral effusions. Other: None IMPRESSION: EXTENSIVE PULMONARY METASTASIS WITHOUT SIGNIFICANT CHANGE. ENDOTRACHEAL AND NASOGASTRIC TUBES IN EXPECTED POSITIONS.
[2017-01-16 21:52] LABS: FIO2 100
[2017-01-16 21:53] LABS: PCO2 Arterial 53 mmHg (35-45)
[2017-01-16 22:27] LABS: BUN/Creatinine Ratio 21.8 (8-20); Calcium 7.2 mg/dL (8.6-10.3); EGFR African American 51.7 (>60); EGFR Non-African American 40.2 (>60); Potassium 4.8 mmol/L (3.5-5.0)
[2017-01-17] MEDS: Vancomycin(*) 750 MG in NS 0.9% 250 ML* 250 ML IVPB SCH ×3 (00:50→23:37)
[2017-01-17] MEDS: Propofol* 100 ML IV SCH ×4 (00:55→22:51)
[2017-01-17] MEDS: Cefepime(*) 2 GM in NS 0.9% 50 ML* 50 ML IVPB SCH ×2 (02:30→14:10)
[2017-01-17] MEDS ORDERED: Norepinephrine 16MCG/ML IVPRE* 4,000 MCG/250 ML BAG IV ONE (02:59)
[2017-01-17] MEDS: Norepinephrine 16MCG/ML IVPRE* 4,000 MCG/250 ML BAG IV SCH ×5 (03:09→21:18)
[2017-01-17 05:38] LABS: Hematocrit 39 % (42-52); Mean Corpuscular HGB Conc 31 g/dl (31-36); Mean Corpuscular Hemoglobin 30 pg (27-31); Mean Corpuscular Volume 98 fL (80-94); Mean Platelet Volume 8 um3 (7.4-10.4); Red Blood Count 4.02 10^6/ul (4.0-5.4); Red Cell Distribution Width 20 % (10.5-15); White Blood Count 14.4 10^3/ul (3.5-10.8)
[2017-01-17] MEDS: NS 0.9% 1000 ML* 1,000 ML IV SCH (05:42)
[2017-01-17 05:43] LABS: Comments Flag Yes
[2017-01-17] MEDS: Levothyroxine TAB* 25 MCG TAB PO SCH (05:54)
[2017-01-17 06:07] LABS: Albumin 2.1 g/dL (3.2-5.2); BUN/Creatinine Ratio 21.5 (8-20); Calcium 7.6 mg/dL (8.6-10.3); EGFR African American 49.3 (>60); EGFR Non-African American 38.4 (>60); Globulin 3.4 g/dL (2-4); Potassium 4.9 mmol/L (3.5-5.0); Total Bilirubin 0.6 mg/dL (0.2-1.0); Total Protein 5.5 g/dL (6.4-8.9)
--- NOTE | 2017-01-17 08:13 | RAD ---
Single frontal view of the chest performed at 0605 hours was reviewed. Indication: Shortness of breath. Comparison is made with previous exam dated January 16, 2017. Endotracheal tube is in place. Nasogastric tube is in place. Multiple masses are noted in the lung escobedo consistent with metastatic disease. Moderate-sized bilateral pleural effusions are noted. Findings are not significantly changed since January 16, 2017. IMPRESSION: MULTIPLE PULMONARY METASTASIS. ENDOTRACHEAL TUBE AND NASOGASTRIC TUBE APPEARS IN PLACE.
--- NOTE | 2017-01-17 08:40 | PN ---
Progress Note - Progress Note Note: Progress Note - Critical Care 24 hour events: -upgraded to ICU for respiratory failure req NIV. waking up more during the day. Evening time was refusing NIV, taken off and placed on 15L salter but being monitored. He wanted breaks from NIV. -abd paracentesis done with 5L removed of serous fluid -vomitting started, bilious in the later evening, more resp distress noted and patient more lethargic, intubated overnight -on propofol, started on levophed sometime during the night also. off propofol now, slowly waking up, not opening eyes now Tele: Afib, rate controlled in 60s Vitals: Vital Signs Temp 99.5 F 01/17/17 08:30 Pulse 70 01/17/17 08:30 Resp 21 01/17/17 08:30 BP 106/61 01/17/17 08:30 Pulse Ox 97 01/17/17 08:30 Intake & Output 01/16/17 01/17/17 01/17/17 18:59 06:59 18:59 Intake Total 1056 3268 Output Total 5000 1225 Balance -3944 2043 Intake: IV Fluids 250 albumin 250 IVPB 706 3078 NS (0.9%) 706 2578 albumin 500 Medicated IV 190 CC - Norepinephrine/ 47 Levophed CC - Propofol/Diprivan 143 Oral 100 0 Output: NG Tube Drainage Amount 800 Ly 425 Other 5000 O2/Vent: AC 16/450/+7/70%; breathing at 19-20 over vent rate Infusions: NS 125cc/hr, propofol, levophed 12mcg/min Current Medications: Acetaminophen (Tylenol Tab*) 650 mg PO Q6H PRN PRN Reason: FEVER Last Admin: 01/16/17 09:42 Dose: 650 mg Albuterol (Ventolin 2.5 Mg/3 Ml Neb.[place]*) 2.5 mg INH Q2H PRN PRN Reason: SOB/WHEEZING Amiodarone HCl (Cordarone Tab*) 100 mg PO DAILY PJ Last Admin: 01/16/17 09:42 Dose: 100 mg Amlodipine Besylate (Norvasc Tab*) 5 mg PO DAILY PJ Last Admin: 01/16/17 09:44 Dose: 5 mg Benzonatate (Tessalon Cap*) 100 mg PO Q8H PRN PRN Reason: COUGH Last Admin: 01/16/17 04:11 Dose: 100 mg Sodium Chloride (Ns 0.9% 500 Ml Bag*) 500 mls @ 1,000 mls/hr IV .BOLUS [facility] Last Admin: 01/16/17 14:30 Dose: 1,000 mls/hr Sodium Chloride (Ns 0.9% 1000 Ml*) 1,000 mls @ 125 mls/hr IV PER RATE PJ Last Admin: 01/17/17 05:42 Dose: 125 mls/hr Cefepime HCl 2 gm/ Sodium (Chloride) 50 mls @ 100 mls/hr IVPB Q12H PJ Last Admin: 01/17/17 02:30 Dose: 100 mls/hr Famotidine 20 mg/ Sodium (Chloride) 102 mls @ 408 mls/hr IVPB DAILY PJ Vancomycin HCl 750 mg/ Sodium (Chloride) 250 mls @ 166.667 mls/hr IVPB Q12H [facility] Last Admin: 01/17/17 00:50 Dose: 166.667 mls/hr Propofol (Diprivan*) 100 mls @ 12.312 mls/hr IV .(Initial Rate) PJ; 30 MCG/KG/ MIN PRN Reason: Protocol Last Admin: 01/17/17 06:57 Dose: 16.1 mls/hr Norepinephrine Bitartrate (Levophed 16 Mcg/Ml Premix Bag*) 4,000 mcg in 250 mls @ 0 mls/hr IV .INITIAL RATE PJ; 0 MCG/MIN PRN Reason: Protocol Last Admin: 01/17/17 03:09 Dose: 7.5 mls/hr Levothyroxine Sodium (Synthroid Tab*) 25 mcg PO DAILY@0600 [facility] Last Admin: 01/17/17 05:54 Dose: Not Given Metoprolol Tartrate (Lopressor Tab*) 50 mg PO DAILY [facility] Last Admin: 01/16/17 09:42 Dose: 50 mg Ondansetron HCl (Zofran Inj*) 4 mg IV Q4H PRN PRN Reason: NAUSEA/VOMITING Pharmacy Consult (Vancomycin Per Pharmacy*) 1 note FOLLOW UP . PRN PRN Reason: PER PROTOCOL Pharmacy Profile Note (Vancomycin Trough Check) 1 note FOLLOW UP 1130 ONE Stop: 01/18/17 11:31 Physical Exam: General: intubated, sedated; moves spontaneously Head: normocephalic, atraumatic HEENT: no pallor, no icterus, moist mucous membranes Neck: soft, supple, no jvd CVS: normal rate, irregular, no murmur Resp: bilateral air entry, rhales improved; mild rhales/rhonchi right upper field, no wheeze, acc muscle use Abdomen: soft, nontender, far less distended, bowel sounds+ Ext: pulses+, warm ext, no edema Skin: intact, no breakdown, no dryness Neuro: intubated, sedated Labs: Laboratory Results - last 24 hr 01/16/17 01/16/17 01/16/17 12:15 13:12 13:12 WBC RBC Hgb Hct MCV MCH MCHC RDW Plt Count MPV Neut % (Auto) Lymph % (Auto) [place] % (Auto) Eos % (Auto) Baso % (Auto) Absolute Neuts (auto) Absolute Lymphs (auto) Absolute Monos (auto) Absolute Eos (auto) Absolute Basos (auto) Absolute Nucleated RBC Nucleated RBC % INR (Anticoag Therapy) APTT Patient Temperature Not Reportable ABG pH 7.02 L* ABG pCO2 111 H* ABG pO2 67 L ABG HCO3 20.1 ABG O2 Saturation 87.7 L ABG Base Excess -5.7 L Respiration Rate Not Reportable O2 Delivery Device oxymask Ventilator Type Not Reportable Vent Mode Not Reportable FiO2 15 Inspiratory Time Not Reportable PEEP Not Reportable Pressure Support Not Reportable Pressure Control Not Reportable EPAP Not Reportable IPAP Not Reportable BiPAP Not Reportable Sodium 142 Potassium 5.2 H Chloride 106 Carbon Dioxide 27 Anion Gap 9 BUN 34 H Creatinine 1.66 H Est GFR ( Amer) 51.4 Est GFR (Non-Af Amer) 40.0 BUN/Creatinine Ratio 20.5 H Glucose 145 H Lactic Acid Calcium 8.6 Magnesium Total Bilirubin 0.50 AST 42 H ALT 19 Alkaline Phosphatase 451 H Ammonia 45 Lactate Dehydrogenase Total Creatine Kinase 127 Total Protein 7.1 Albumin 2.4 L Globulin 4.7 H Albumin/Globulin Ratio 0.5 L Amylase 82 Lipase 15 Fluid Source Fluid Volume Fluid Color Fluid Appearance Fluid WBC Fluid RBC Fluid Tot Cell Count Fluid Neutrophils Fluid Lymphocytes Fluid Monocytes Blood Type Antibody Screen 01/16/17 01/16/17 01/16/17 13:12 13:12 13:12 WBC 12.2 H RBC 4.90 Hgb 14.4 Hct 48 MCV 97 H MCH 30 MCHC 30 L RDW 20 H Plt Count 393 MPV 8 Neut % (Auto) 84.2 H Lymph % (Auto) 8.9 L [place] % (Auto) 5.0 Eos % (Auto) 1.1 Baso % (Auto) 0.8 Absolute Neuts (auto) 10.3 H Absolute Lymphs (auto) 1.1 Absolute Monos (auto) 0.6 Absolute Eos (auto) 0.1 Absolute Basos (auto) 0.1 Absolute Nucleated RBC 0.01 Nucleated RBC % 0.1 INR (Anticoag Therapy) 1.36 H APTT 32.7 Patient Temperature ABG pH ABG pCO2 ABG pO2 ABG HCO3 ABG O2 Saturation ABG Base Excess Respiration Rate O2 Delivery Device Ventilator Type Vent Mode FiO2 Inspiratory Time PEEP Pressure Support Pressure Control EPAP IPAP BiPAP Sodium Potassium Chloride Carbon Dioxide Anion Gap BUN Creatinine Est GFR ( Amer) Est GFR (Non-Af Amer) BUN/Creatinine Ratio Glucose Lactic Acid 2.7 H* Calcium Magnesium Total Bilirubin AST ALT Alkaline Phosphatase Ammonia Lactate Dehydrogenase Total Creatine Kinase Total Protein Albumin Globulin Albumin/Globulin Ratio Amylase Lipase Fluid Source Fluid Volume Fluid Color Fluid Appearance Fluid WBC Fluid RBC Fluid Tot Cell Count Fluid Neutrophils Fluid Lymphocytes Fluid Monocytes Blood Type Antibody Screen 01/16/17 01/16/17 01/16/17 13:12 13:42 13:45 WBC RBC Hgb Hct MCV MCH MCHC RDW Plt Count MPV Neut % (Auto) Lymph % (Auto) [place] % (Auto) Eos % (Auto) Baso % (Auto) Absolute Neuts (auto) Absolute Lymphs (auto) Absolute Monos (auto) Absolute Eos (auto) Absolute Basos (auto) Absolute Nucleated RBC Nucleated RBC % INR (Anticoag Therapy) APTT Patient Temperature Not Reportable ABG pH 7.15 L* ABG pCO2 73 H* ABG pO2 125 H ABG HCO3 20.8 ABG O2 Saturation 98.2 H ABG Base Excess -5.2 L Respiration Rate 20 O2 Delivery Device Ventilator Type Not Reportable Vent Mode Not Reportable FiO2 100 Inspiratory Time Not Reportable PEEP Not Reportable Pressure Support Not Reportable Pressure Control Not Reportable EPAP 7 IPAP 16 BiPAP Not Reportable Sodium Potassium Chloride Carbon Dioxide Anion Gap BUN Creatinine Est GFR ( Amer) Est GFR (Non-Af Amer) BUN/Creatinine Ratio Glucose Lactic Acid Calcium Magnesium Total Bilirubin AST ALT Alkaline Phosphatase Ammonia Lactate Dehydrogenase 192 Total Creatine Kinase Total Protein Albumin Globulin Albumin/Globulin Ratio Amylase Lipase Fluid Source Fluid Volume Fluid Color Fluid Appearance Fluid WBC Fluid RBC Fluid Tot Cell Count Fluid Neutrophils Fluid Lymphocytes Fluid Monocytes Blood Type O Positive Antibody Screen Negative 01/16/17 01/16/17 01/16/17 17:15 18:20 19:55 WBC RBC Hgb Hct MCV MCH MCHC RDW Plt Count MPV Neut % (Auto) Lymph % (Auto) [place] % (Auto) Eos % (Auto) Baso % (Auto) Absolute Neuts (auto) Absolute Lymphs (auto) Absolute Monos (auto) Absolute Eos (auto) Absolute Basos (auto) Absolute Nucleated RBC Nucleated RBC % INR (Anticoag Therapy) APTT Patient Temperature Not Reportable ABG pH 7.14 L* ABG pCO2 81 H* ABG pO2 73 L ABG HCO3 22.1 ABG O2 Saturation 95.1 ABG Base Excess -3.5 L Respiration Rate Not Reportable O2 Delivery Device Nc 15lpm Ventilator Type Not Reportable Vent Mode Not Reportable FiO2 Not Reportable Inspiratory Time Not Reportable PEEP Not Reportable Pressure Support Not Reportable Pressure Control Not Reportable EPAP Not Reportable IPAP Not Reportable BiPAP Not Reportable Sodium Potassium Chloride Carbon Dioxide Anion Gap BUN Creatinine Est GFR ( Amer) Est GFR (Non-Af Amer) BUN/Creatinine Ratio Glucose Lactic Acid 1.8 Calcium Magnesium Total Bilirubin AST ALT Alkaline Phosphatase Ammonia Lactate Dehydrogenase Total Creatine Kinase Total Protein Albumin Globulin Albumin/Globulin Ratio Amylase Lipase Fluid Source Peritonial fluid Fluid Volume 7.5 Fluid Color Yellow Fluid Appearance Cloudy Fluid WBC 1085 Fluid RBC 203 Fluid Tot Cell Count 100 Fluid Neutrophils 39 Fluid Lymphocytes 39 Fluid Monocytes 22 Blood Type Antibody Screen 01/16/17 01/16/17 01/17/17 21:45 21:47 05:14 WBC 14.4 H RBC 4.02 Hgb 12.0 L Hct 39 L MCV 98 H MCH 30 MCHC 31 RDW 20 H Plt Count 311 MPV 8 Neut % (Auto) 93.8 H Lymph % (Auto) 1.4 L [place] % (Auto) 4.5 Eos % (Auto) 0.1 Baso % (Auto) 0.2 Absolute Neuts (auto) 13.5 H Absolute Lymphs (auto) 0.2 L Absolute Monos (auto) 0.7 Absolute Eos (auto) 0 Absolute Basos (auto) 0 Absolute Nucleated RBC 0.01 Nucleated RBC % 0 INR (Anticoag Therapy) APTT Patient Temperature Not Reportable ABG pH 7.27 L ABG pCO2 53 H ABG pO2 212 H ABG HCO3 22.4 ABG O2 Saturation 99.5 H ABG Base Excess -3.2 L Respiration Rate Not Reportable O2 Delivery Device ventilator Ventilator Type Not Reportable Vent Mode Not Reportable FiO2 100 Inspiratory Time Not Reportable PEEP Not Reportable Pressure Support Not Reportable Pressure Control Not Reportable EPAP Not Reportable IPAP Not Reportable BiPAP Not Reportable Sodium 144 Potassium 4.8 Chloride 112 H Carbon Dioxide 24 Anion Gap 8 BUN 36 H Creatinine 1.65 H Est GFR ( Amer) 51.7 Est GFR (Non-Af Amer) 40.2 BUN/Creatinine Ratio 21.8 H Glucose 93 Lactic Acid Calcium 7.2 L Magnesium 2.0 Total Bilirubin AST ALT Alkaline Phosphatase Ammonia Lactate Dehydrogenase Total Creatine Kinase Total Protein Albumin Globulin Albumin/Globulin Ratio Amylase Lipase Fluid Source Fluid Volume Fluid Color Fluid Appearance Fluid WBC Fluid RBC Fluid Tot Cell Count Fluid Neutrophils Fluid Lymphocytes Fluid Monocytes Blood Type Antibody Screen 01/17/17 05:14 WBC RBC Hgb Hct MCV MCH MCHC RDW Plt Count MPV Neut % (Auto) Lymph % (Auto) [place] % (Auto) Eos % (Auto) Baso % (Auto) Absolute Neuts (auto) Absolute Lymphs (auto) Absolute Monos (auto) Absolute Eos (auto) Absolute Basos (auto) Absolute Nucleated RBC Nucleated RBC % INR (Anticoag Therapy) APTT Patient Temperature ABG pH ABG pCO2 ABG pO2 ABG HCO3 ABG O2 Saturation ABG Base Excess Respiration Rate O2 Delivery Device Ventilator Type Vent Mode FiO2 Inspiratory Time PEEP Pressure Support Pressure Control EPAP IPAP BiPAP Sodium 144 Potassium 4.9 Chloride 111 Carbon Dioxide 27 Anion Gap 6 BUN 37 H Creatinine 1.72 H Est GFR ( Amer) 49.3 Est GFR (Non-Af Amer) 38.4 BUN/Creatinine Ratio 21.5 H Glucose 99 Lactic Acid Calcium 7.6 L Magnesium Total Bilirubin 0.60 AST 30 ALT 14 Alkaline Phosphatase 255 H Ammonia Lactate Dehydrogenase Total Creatine Kinase Total Protein 5.5 L Albumin 2.1 L Globulin 3.4 Albumin/Globulin Ratio 0.6 L Amylase Lipase Fluid Source Fluid Volume Fluid Color Fluid Appearance Fluid WBC Fluid RBC Fluid Tot Cell Count Fluid Neutrophils Fluid Lymphocytes Fluid Monocytes Blood Type Antibody Screen Imaging: cxr 01/16 - bilateral metastatic lesions+; RUL/RML patchy opacity+ CT chest 01/15 - reviewed - moderate right pleural effusion+, smaller left effusion+, bilateral met lesions in lungs, Ride sided patchy opacity/ consolidation; abdominal ascites+, hepatic lesions+ cxr 01/17 - ett above keya; small/mod bilateal effusions; RUL opacity still present but more noted on left side now; noted metastatic bilateral lesions+, ngt+, right port+ Assessment: 81y M w/ pmhx of Metastatic [place]-rectal Ca to Liver and Lungs on Immunotherapy, Atrial Fibrillation on Xarelto, LV diastolic dysfunction, HTN, BPH, hypothyroidism; comes to ER 01/15 for complaints of shortness of breath and cough for days. Progressive fatigue, abdominal discomfort, distended abdomen. Decreased appetite+. Sputum+. Found febrile. Became hypoxic, tachypneic, found to be in respiratory acidosis, req NIV in ICU. 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 neuro checks. asp prec. fall prec. mittens for safety CVS- septic shock, check lactic acid, remains on levophed. making urine. on NS 125cc/hour. noted neg balance, mostly due to abd para done (5L). blood cx pending. sputum cx pending. fluid cx neutrophils+. Awaiting chemistry for r/o SBP. Needs arterial line placed today for hemodyn and freq abgs. Afib rate controlled, hold BB, cont amio po, start heparin infusion. Resp- Intubated, switched to AC mode now, still quite hypoxic req 70% fio2, increased peep to 7 now, as BP tolerates to recruite. CXR reviewed, more infiltrates, suspect acute aspiration form profuse vomitting on top of likely pneumonia which is present. Will follow for thoracentesis; bedside USG didnt show very large effusion, more moderate and more posterior, so will plan for thora if he is stable and window allows. ABG pending. Bronchodilators for rhonchi. IV abx cefepime and vancomycin. Pulm Toilet. Sedation for vent synchrony. Titrate fio2 to keep sat >92% ID- WBC 14, low grade 99+ temps. Cover for HCAP and aspiration given metastatic CA, on immunotherapy and hospitalizations. Cefepime (day#3), Vanco (day#2). USG GB without thickening/obstruction. GI- s/p paracentesis with 5L removed, noted improved resp status while removing fluid. Profuse vomitting, seems bilious. NGT in place. change to PPI from H2 tano. no diarrhea noted. Hg stable. no free air on CXR. abd very soft, nontender the whole time last night and now, very low suspicion of perf. Pending chemistry for peritoneal fluid, WBC elevated, transudative? awaiting culture also. Holding on further tap at this time. NPO today. Renal- EMILE, Cr still rising, nonoliguric. Septic ATN? will cont IVF but dec rate , no edema. prefer albumin intermittently to help with oncotic pressure. K noted <5. ly+. Heme- stable hg. plt stable. Start heparin infusion for Afib tx. Endo- FS as needed. Musculsk- bedrest for now. pressure ulcer prophylaxis Wounds- none Nutrition- NPO. DVT prophylaxis: SCDs, heparin iv. GI prophylaxis: PPI Central Line: no, right chest wall port+ Arterial Line: no Ly Cathetor: yes Disposition: ICU for septic shock, pneumonia, hypercap/hypoxic resp failure Code Status: Full code discussed with son at bedside, he would like everything done at this time. We discussed possibility of intubation (which occurred last night) as well as further issues. Unclear how much insight they have to the extent of his disease and progression and current status. Will obtain palliative care, would appreciate Heme/Onc to also discuss with family about disease status. Total Critical Care time is 45 minutes, excluding procedures/teaching Soto Kaufman MD Frame Operator (Electronically Signed)
--- NOTE | 2017-01-17 09:03 | PRO ---
DATE OF PROCEDURE: 01/16/17 - ROOM #ICU-07 SERVICE: Critical Care Medicine. LOCATION OF PROCEDURE: ICU. PROCEDURE BEING PERFORMED: Endotracheal intubation. PROCEDURALIST: FRANTZ Rodrigez Dr. supervising. CONSENT OBTAINED: No, procedure performed emergently. TIME-OUT HELD: Not indicated. INDICATION: 1. Acute respiratory failure. 2. Pneumonia. PROCEDURE IN DETAIL: Oxygen was maintained and vitals were monitored. The patient was placed in supine position. He was medicated with 15 mcg of propofol. GlideScope #3 was inserted with a grade 1 view obtained. An 8.0 endotracheal tube was inserted to 24 at the lip. Good chest rise with breath sounds were appreciated bilaterally in the lung escobedo. His end-tidal CO2 was 30. The patient tolerated the procedure well. It was noted that when he was intubated, he did have gastric secretions coming from the ET tube, which is obviously concerning for possible aspiration. I did update the manager social media on- call, Dr. Kaufman. At this point, we will continue with his current antibiotics; he is on cefepime and vanco. In addition to this, we will sedate him with propofol and we will go ahead and wait for chest x-ray and an OG tube was placed. In addition to this, we will go ahead and place him on mechanical ventilation with assist control. JASIVR GRANADOS NP [id number]/[facility] #: [id number] MTDD
[2017-01-17] MEDS ORDERED: Heparin DRIP 25,000 UNITS(*) 25,000 UNITS/500 ML BAG IV SCH (09:15)
[2017-01-17 09:29] LABS: FIO2 70; Resp Rate 16; Ventilator Volume 450
[2017-01-17 09:30] LABS: PCO2 Arterial 61 mmHg (35-45)
[2017-01-17] MEDS: Pantoprazole IV* 40 MG IV SCH (09:32)
[2017-01-17] MEDS: Amiodarone TAB* 200 MG PO SCH (09:32)
--- NOTE | 2017-01-17 09:49 | PN ---
Progress Note - Progress Note SOAP: Subjective: []Respiratory distress and transferred to ICU, intubated overnight and now with NG tube r/t aspiration and levophed for BP. Son was in this AM, has left for the day per nursing. Pt. moving extremities, however sedated. Medications: Acetaminophen (Tylenol Tab*) 650 mg PO Q6H PRN PRN Reason: FEVER Last Admin: 01/16/17 09:42 Dose: 650 mg Albuterol (Ventolin 2.5 Mg/3 Ml Neb.[place]*) 2.5 mg INH Q2H PRN PRN Reason: SOB/WHEEZING Amiodarone HCl (Cordarone Tab*) 100 mg PO DAILY PJ Last Admin: 01/17/17 09:32 Dose: 100 mg Benzonatate (Tessalon Cap*) 100 mg PO Q8H PRN PRN Reason: COUGH Last Admin: 01/16/17 04:11 Dose: 100 mg Heparin Sodium (Porcine) (Heparin Vial(*)) 0 units IV .PER PROTOCOL PJ PRN Reason: Protocol Sodium Chloride (Ns 0.9% 500 Ml Bag*) 500 mls @ 1,000 mls/hr IV .BOLUS PJ Last Admin: 01/16/17 14:30 Dose: 1,000 mls/hr Sodium Chloride (Ns 0.9% 1000 Ml*) 1,000 mls @ 125 mls/hr IV PER RATE PJ Last Admin: 01/17/17 05:42 Dose: 125 mls/hr Cefepime HCl 2 gm/ Sodium (Chloride) 50 mls @ 100 mls/hr IVPB Q12H PJ Last Admin: 01/17/17 02:30 Dose: 100 mls/hr Vancomycin HCl 750 mg/ Sodium (Chloride) 250 mls @ 166.667 mls/hr IVPB Q12H PJ Last Admin: 01/17/17 00:50 Dose: 166.667 mls/hr Propofol (Diprivan*) 100 mls @ 12.312 mls/hr IV .(Initial Rate) PJ; 30 MCG/KG/ MIN PRN Reason: Protocol Last Admin: 01/17/17 06:57 Dose: 16.1 mls/hr Norepinephrine Bitartrate (Levophed 16 Mcg/Ml Premix Bag*) 4,000 mcg in 250 mls @ 0 mls/hr IV .INITIAL RATE PJ; 0 MCG/MIN PRN Reason: Protocol Last Admin: 01/17/17 03:09 Dose: 7.5 mls/hr Heparin Sodium/Dextrose (Heparin Drip 25,000 Units(*)) 25,000 units in 500 mls @ 0 mls/hr IV .NO INITIAL BOLUS PJ; As Directed PRN Reason: Protocol Levothyroxine Sodium (Synthroid Tab*) 25 mcg PO DAILY@0600 PJ Last Admin: 01/17/17 05:54 Dose: Not Given Ondansetron HCl (Zofran Inj*) 4 mg IV Q4H PRN PRN Reason: NAUSEA/VOMITING Pantoprazole Sodium (Protonix Iv*) 40 mg IV Q24H PJ Last Admin: 01/17/17 09:32 Dose: 40 mg Pharmacy Consult (Vancomycin Per Pharmacy*) 1 note FOLLOW UP . PRN PRN Reason: PER PROTOCOL Pharmacy Profile Note (Vancomycin Trough Check) 1 note FOLLOW UP 1130 ONE Stop: 01/18/17 11:31 Objective: [] Vital Signs Temp Pulse Resp BP Pulse Ox 99.3 F 68 23 97/61 96 01/17/17 09:15 01/17/17 09:15 01/17/17 09:15 01/17/17 09:15 01/17/17 09:15 Sedated Intubated with even respirations Pérez draining yellow urine NG tube with sm. output Limited exam today as pt. managed directly by critical care and no planned oncologic interventions. Laboratory Results - last 24 hr 01/16/17 01/16/17 01/16/17 12:15 13:12 13:12 WBC RBC Hgb Hct MCV MCH MCHC RDW Plt Count MPV Neut % (Auto) Lymph % (Auto) [place] % (Auto) Eos % (Auto) Baso % (Auto) Absolute Neuts (auto) Absolute Lymphs (auto) Absolute Monos (auto) Absolute Eos (auto) Absolute Basos (auto) Absolute Nucleated RBC Nucleated RBC % INR (Anticoag Therapy) APTT Patient Temperature Not Reportable ABG pH 7.02 L* ABG pCO2 111 H* ABG pO2 67 L ABG HCO3 20.1 ABG O2 Saturation 87.7 L ABG Base Excess -5.7 L Respiration Rate Not Reportable O2 Delivery Device oxymask Ventilator Type Not Reportable Vent Mode Not Reportable FiO2 15 Inspiratory Time Not Reportable PEEP Not Reportable Pressure Support Not Reportable Pressure Control Not Reportable EPAP Not Reportable IPAP Not Reportable BiPAP Not Reportable Sodium 142 Potassium 5.2 H Chloride 106 Carbon Dioxide 27 Anion Gap 9 BUN 34 H Creatinine 1.66 H Est GFR ( Amer) 51.4 Est GFR (Non-Af Amer) 40.0 BUN/Creatinine Ratio 20.5 H Glucose 145 H Lactic Acid Calcium 8.6 Magnesium Total Bilirubin 0.50 AST 42 H ALT 19 Alkaline Phosphatase 451 H Ammonia 45 Lactate Dehydrogenase Total Creatine Kinase 127 Total Protein 7.1 Albumin 2.4 L Globulin 4.7 H Albumin/Globulin Ratio 0.5 L Amylase 82 Lipase 15 Fluid Source Fluid Volume Fluid Color Fluid Appearance Fluid WBC Fluid RBC Fluid Tot Cell Count Fluid Neutrophils Fluid Lymphocytes Fluid Monocytes Blood Type Antibody Screen 01/16/17 01/16/17 01/16/17 13:12 13:12 13:12 WBC 12.2 H RBC 4.90 Hgb 14.4 Hct 48 MCV 97 H MCH 30 MCHC 30 L RDW 20 H Plt Count 393 MPV 8 Neut % (Auto) 84.2 H Lymph % (Auto) 8.9 L [place] % (Auto) 5.0 Eos % (Auto) 1.1 Baso % (Auto) 0.8 Absolute Neuts (auto) 10.3 H Absolute Lymphs (auto) 1.1 Absolute Monos (auto) 0.6 Absolute Eos (auto) 0.1 Absolute Basos (auto) 0.1 Absolute Nucleated RBC 0.01 Nucleated RBC % 0.1 INR (Anticoag Therapy) 1.36 H APTT 32.7 Patient Temperature ABG pH ABG pCO2 ABG pO2 ABG HCO3 ABG O2 Saturation ABG Base Excess Respiration Rate O2 Delivery Device Ventilator Type Vent Mode FiO2 Inspiratory Time PEEP Pressure Support Pressure Control EPAP IPAP BiPAP Sodium Potassium Chloride Carbon Dioxide Anion Gap BUN Creatinine Est GFR ( Amer) Est GFR (Non-Af Amer) BUN/Creatinine Ratio Glucose Lactic Acid 2.7 H* Calcium Magnesium Total Bilirubin AST ALT Alkaline Phosphatase Ammonia Lactate Dehydrogenase Total Creatine Kinase Total Protein Albumin Globulin Albumin/Globulin Ratio Amylase Lipase Fluid Source Fluid Volume Fluid Color Fluid Appearance Fluid WBC Fluid RBC Fluid Tot Cell Count Fluid Neutrophils Fluid Lymphocytes Fluid Monocytes Blood Type Antibody Screen 01/16/17 01/16/17 01/16/17 13:12 13:42 13:45 WBC RBC Hgb Hct MCV MCH MCHC RDW Plt Count MPV Neut % (Auto) Lymph % (Auto) [place] % (Auto) Eos % (Auto) Baso % (Auto) Absolute Neuts (auto) Absolute Lymphs (auto) Absolute Monos (auto) Absolute Eos (auto) Absolute Basos (auto) Absolute Nucleated RBC Nucleated RBC % INR (Anticoag Therapy) APTT Patient Temperature Not Reportable ABG pH 7.15 L* ABG pCO2 73 H* ABG pO2 125 H ABG HCO3 20.8 ABG O2 Saturation 98.2 H ABG Base Excess -5.2 L Respiration Rate 20 O2 Delivery Device Ventilator Type Not Reportable Vent Mode Not Reportable FiO2 100 Inspiratory Time Not Reportable PEEP Not Reportable Pressure Support Not Reportable Pressure Control Not Reportable EPAP 7 IPAP 16 BiPAP Not Reportable Sodium Potassium Chloride Carbon Dioxide Anion Gap BUN Creatinine Est GFR ( Amer) Est GFR (Non-Af Amer) BUN/Creatinine Ratio Glucose Lactic Acid Calcium Magnesium Total Bilirubin AST ALT Alkaline Phosphatase Ammonia Lactate Dehydrogenase 192 Total Creatine Kinase Total Protein Albumin Globulin Albumin/Globulin Ratio Amylase Lipase Fluid Source Fluid Volume Fluid Color Fluid Appearance Fluid WBC Fluid RBC Fluid Tot Cell Count Fluid Neutrophils Fluid Lymphocytes Fluid Monocytes Blood Type O Positive Antibody Screen Negative 01/16/17 01/16/17 01/16/17 17:15 18:20 19:55 WBC RBC Hgb Hct MCV MCH MCHC RDW Plt Count MPV Neut % (Auto) Lymph % (Auto) [place] % (Auto) Eos % (Auto) Baso % (Auto) Absolute Neuts (auto) Absolute Lymphs (auto) Absolute Monos (auto) Absolute Eos (auto) Absolute Basos (auto) Absolute Nucleated RBC Nucleated RBC % INR (Anticoag Therapy) APTT Patient Temperature Not Reportable ABG pH 7.14 L* ABG pCO2 81 H* ABG pO2 73 L ABG HCO3 22.1 ABG O2 Saturation 95.1 ABG Base Excess -3.5 L Respiration Rate Not Reportable O2 Delivery Device Nc 15lpm Ventilator Type Not Reportable Vent Mode Not Reportable FiO2 Not Reportable Inspiratory Time Not Reportable PEEP Not Reportable Pressure Support Not Reportable Pressure Control Not Reportable EPAP Not Reportable IPAP Not Reportable BiPAP Not Reportable Sodium Potassium Chloride Carbon Dioxide Anion Gap BUN Creatinine Est GFR ( Amer) Est GFR (Non-Af Amer) BUN/Creatinine Ratio Glucose Lactic Acid 1.8 Calcium Magnesium Total Bilirubin AST ALT Alkaline Phosphatase Ammonia Lactate Dehydrogenase Total Creatine Kinase Total Protein Albumin Globulin Albumin/Globulin Ratio Amylase Lipase Fluid Source Peritonial fluid Fluid Volume 7.5 Fluid Color Yellow Fluid Appearance Cloudy Fluid WBC 1085 Fluid RBC 203 Fluid Tot Cell Count 100 Fluid Neutrophils 39 Fluid Lymphocytes 39 Fluid Monocytes 22 Blood Type Antibody Screen 01/16/17 01/16/17 01/17/17 21:45 21:47 05:14 WBC 14.4 H RBC 4.02 Hgb 12.0 L Hct 39 L MCV 98 H MCH 30 MCHC 31 RDW 20 H Plt Count 311 MPV 8 Neut % (Auto) 93.8 H Lymph % (Auto) 1.4 L [place] % (Auto) 4.5 Eos % (Auto) 0.1 Baso % (Auto) 0.2 Absolute Neuts (auto) 13.5 H Absolute Lymphs (auto) 0.2 L Absolute Monos (auto) 0.7 Absolute Eos (auto) 0 Absolute Basos (auto) 0 Absolute Nucleated RBC 0.01 Nucleated RBC % 0 INR (Anticoag Therapy) APTT Patient Temperature Not Reportable ABG pH 7.27 L ABG pCO2 53 H ABG pO2 212 H ABG HCO3 22.4 ABG O2 Saturation 99.5 H ABG Base Excess -3.2 L Respiration Rate Not Reportable O2 Delivery Device ventilator Ventilator Type Not Reportable Vent Mode Not Reportable FiO2 100 Inspiratory Time Not Reportable PEEP Not Reportable Pressure Support Not Reportable Pressure Control Not Reportable EPAP Not Reportable IPAP Not Reportable BiPAP Not Reportable Sodium 144 Potassium 4.8 Chloride 112 H Carbon Dioxide 24 Anion Gap 8 BUN 36 H Creatinine 1.65 H Est GFR ( Amer) 51.7 Est GFR (Non-Af Amer) 40.2 BUN/Creatinine Ratio 21.8 H Glucose 93 Lactic Acid Calcium 7.2 L Magnesium 2.0 Total Bilirubin AST ALT Alkaline Phosphatase Ammonia Lactate Dehydrogenase Total Creatine Kinase Total Protein Albumin Globulin Albumin/Globulin Ratio Amylase Lipase Fluid Source Fluid Volume Fluid Color Fluid Appearance Fluid WBC Fluid RBC Fluid Tot Cell Count Fluid Neutrophils Fluid Lymphocytes Fluid Monocytes Blood Type Antibody Screen 01/17/17 01/17/17 05:14 09:00 WBC RBC Hgb Hct MCV MCH MCHC RDW Plt Count MPV Neut % (Auto) Lymph % (Auto) [place] % (Auto) Eos % (Auto) Baso % (Auto) Absolute Neuts (auto) Absolute Lymphs (auto) Absolute Monos (auto) Absolute Eos (auto) Absolute Basos (auto) Absolute Nucleated RBC Nucleated RBC % INR (Anticoag Therapy) APTT Patient Temperature Not Reportable ABG pH 7.25 L ABG pCO2 61 H ABG pO2 113 H ABG HCO3 23.7 ABG O2 Saturation 99.2 H ABG Base Excess -1.5 Respiration Rate 16 O2 Delivery Device vent Ventilator Type 450 Vent Mode cmv FiO2 70 Inspiratory Time Not Reportable PEEP 8 Pressure Support Not Reportable Pressure Control Not Reportable EPAP Not Reportable IPAP Not Reportable BiPAP Not Reportable Sodium 144 Potassium 4.9 Chloride 111 Carbon Dioxide 27 Anion Gap 6 BUN 37 H Creatinine 1.72 H Est GFR ( Amer) 49.3 Est GFR (Non-Af Amer) 38.4 BUN/Creatinine Ratio 21.5 H Glucose 99 Lactic Acid Calcium 7.6 L Magnesium Total Bilirubin 0.60 AST 30 ALT 14 Alkaline Phosphatase 255 H Ammonia Lactate Dehydrogenase Total Creatine Kinase Total Protein 5.5 L Albumin 2.1 L Globulin 3.4 Albumin/Globulin Ratio 0.6 L Amylase Lipase Fluid Source Fluid Volume Fluid Color Fluid Appearance Fluid WBC Fluid RBC Fluid Tot Cell Count Fluid Neutrophils Fluid Lymphocytes Fluid Monocytes Blood Type Antibody Screen Assessment: []81 yo male with metastatic colorectacl cancer currently on clinical trial with [facility], admitted with general decline and subsequent respiratory failure likely r/t septic shock. I had hoped to discuss underlying colon cancer and extent of disease with son, however he was not present at time of my assessment. Plan of care discussed with Dr. Kaufman who will be managing his care. Plan: []Per Internal Audit Manager. Oncology to round daily, I will attempt to call son today.
[2017-01-17] MEDS ORDERED: Heparin VIAL(*) 5000 UNITS/ML VIAL (FIVE THOUSAND) IV SCH (10:00)
[2017-01-17 10:47] LABS: Hematocrit 41 % (42-52); Hemoglobin 12.6 g/dl (14.0-18.0); Mean Corpuscular HGB Conc 31 g/dl (31-36); Mean Corpuscular Hemoglobin 30 pg (27-31); Mean Corpuscular Volume 97 fL (80-94); Mean Platelet Volume 8 um3 (7.4-10.4); Red Blood Count 4.23 10^6/ul (4.0-5.4); Red Cell Distribution Width 20 % (10.5-15); White Blood Count 14.7 10^3/ul (3.5-10.8)
[2017-01-17] MEDS ORDERED: NS 0.9% 1000 ML* 1,000 ML IV SCH (10:50)
[2017-01-17 10:57] LABS: Comments Flag Yes
[2017-01-17] MEDS ORDERED: Vancomycin Trough Check NOTE FOLLOW UP ONE (11:30)
[2017-01-17] MEDS ORDERED: NS 0.9% 250 ML* 250 ML ONE (12:30)
[2017-01-17] MEDS: Chlorhexidine MOUTHWASH 0.12%* 15 ML UDC TOPICAL SCH ×4 (12:34→23:37)
[2017-01-17] MEDS ORDERED: VASOPRESSIN 20 UNITS/ML 1 ML VIAL ONE (13:12)
[2017-01-17] MEDS ORDERED: NS 0.9% 1000 ML* 1,000 ML IV ONE ×2 (14:00→14:13)
[2017-01-17] MEDS ORDERED: Vasopressin* 100 UNITS in D5W 250 ML BAG* 245 ML IVPB SCH (14:00)
--- NOTE | 2017-01-17 14:26 | CONS ---
CC: Chris Veras MD; Tessie Gentile NP * PALLIATIVE CARE CONSULTATION: DATE OF CONSULT: 01/17/17 PRIMARY CARE PHYSICIAN: Chris Veras MD REFERRING PHYSICIAN: Tessie Gentile NP HOSPITAL COURSE: This is an 81-year-old male with a past medical history of metastatic colon cancer to the liver and lungs who recently started clinical trial on immunotherapy through [facility] at the beginning of this month who had been living with his son. He went to urgent care initially on the experiencing fatigue and shortness of breath. He has also had a significant amount of abdominal bloating. Urgent care recommended transfer to the emergency room for further evaluation. The patient was initially resistant as he did not like the physician at [facility]. The patient was admitted by Dr. Pan for concern for respiratory failure. There was concern for the patient's prominent ascites and bilateral pleural effusions. He was also started on Zosyn and admitted to the floor. There was a consultation for the high school agriculture teacher to evaluate the patient. Dr. Kaufman evaluated the patient on the later that day. The patient was noted to be in respiratory distress. He was also hypoxic at that time. He was brought to the ICU and initially he was placed on BiPAP, but then began vomiting and the patient was then intubated at that time. The concern now is that the patient presented with acute hypercapnic and hypoxic respiratory failure with community acquired pneumonia, now with aspiration pneumonia, on immunotherapy, immunocompromised with marked ascites and pleural effusions in the setting of metastatic colon cancer to the lungs and liver showing progression of his lung mets. Dr. Kaufman took off 5 L from his abdomen today and seems that his respiratory status slightly improved. He still remains of Levophed and is sedated on propofol. I spoke with the son Roberto Lerner who is the primary healthcare proxy who states he moved up to live with him from [place] for the past year and he has been caring for him. He has been very weak, remains ambulating but very slowly. No falls. He has had worsening fatigue and bloating and decreased appetite over the past 10 days after he returned from [place] for his immunotherapy. I spoke with the son regarding my role as a palliative care physician and to discuss goals of care and I will see people with serious medical problems in my concern about poor prognosis for him and discussing comfort care measures if this is the avenue he would wish to pursue. The son states that he wants to continue to be aggressive as he can be as his goal is to get him back home and to continue on with aggressive care. He did state his other 4 siblings will be flying in from various locations and they will be arriving tomorrow on the . The patient is sedated and unable to follow commands or answer any questions. PAST MEDICAL HISTORY: 1. As mentioned metastatic colon cancer to the lung and liver, on immunotherapy at [facility], diagnosed in 2014. 2. Hypertension. 3. BPH. 4. Atrial fibrillation. 5. Diastolic heart failure. 6. Hypothyroidism. PAST SURGICAL HISTORY: Left inguinal hernia repair, small bowel tumor resection 2014, ERCP with biliary sphincterotomy and stent in November 2015, right inguinal hernia repair in August 2015. MEDICATIONS: Inpatient Medications are: 1. Tylenol 650 every 6 hours as needed. 2. Albuterol neb every 2 hours as needed. 3. Amiodarone 100 mg p.o. daily. 4. Benzonatate 100 mg every 8 hours as needed. 5. Cefepime 2 g every 12 hours. 6. Chlorhexidine mouth wash q. 4 hours. 7. Heparin drip. 8. Levothyroxine 25 mcg daily. 9. Normal saline 100 cc an hour, the patient received a bolus earlier today. 10. Levophed. 11. Zofran 4 mg every 4 hours as needed. 12. Pantoprazole 40 mg every 24 hours. 13. Propofol drip. 14. Vancomycin. ALLERGIES: DOFETILIDE. FAMILY HISTORY: Prostate cancer in both brother and father. History of other malignancies. SOCIAL HISTORY: As mentioned, the patient lives at home with his son Roberto Lerner [phone]. His son is his healthcare proxy as well. He has a total of 5 children who are all planning to come into town tomorrow. No history of smoking or illicit drug use. 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 REVIEW OF SYSTEMS: Unable to obtain, the patient is intubated and sedated. PHYSICAL EXAM: Vitals: Temp 99.1, pulse rate 65, respiratory rate 19, and 97% on 70% FiO2 mechanical ventilation, blood pressure 112/60. General: A frail elderly male, intubated and sedated. Head normocephalic. Pupils equal and reactive, anicteric. Oropharynx: Intubated with OG tube in place. Cardiac: Regular, rate, and rhythm with systolic murmur heard most pronounced at the right sternal base. Respiratory: Diminished breath sounds, rhonchi bilaterally. Abdomen: Hypoactive bowel sounds with some mild distention, nontender. Extremities: +1 pretibial edema. Neurologic: The patient is sedated, intubated, and unable to follow commands. DIAGNOSTIC STUDIES/LAB DATA: White count 14.7, hemoglobin 12.6, hematocrit 41, platelets 338. Sodium 142, potassium 5.2, chloride 106, bicarb 27, BUN 34, creatinine 1.66, glucose 145, lactic 2.7, albumin is 2.4. Most recent imaging showed a chest x-ray; multiple pulmonary metastases, endotracheal tube and nasogastric appeared place. Chest, abdomen, and pelvis CT on admission showed marked progression of extensive pulmonary metastasis with bilateral pleural effusions, mild to moderate on the left. Biliary stent is in place. Increasing ascites is noted with a periumbilical hernia. Left- sided adrenal mass measuring 2.3 cm. ASSESSMENT: This is an 81-year-old male with a past medical history of metastatic colon cancer to the liver and lungs, on immunotherapy through a clinical trial at [facility], who presented to the emergency room from urgent care on the with respiratory distress, was subsequently intubated, on pressors in the ICU. The patient also now with worsening renal failure and hyperkalemia. I spoke with the son at length regarding my role as a palliative care physician. The patient's son wants aggressive measures. I encouraged him to talk to his other family members who are going to get in town to readdress goals of care and that each day we should address this as he has a grim/poor prognosis and I suspect he will not survive to discharge. The patient is eligible for hospice with terminal diagnosis of metastatic colon cancer and a secondary diagnosis of respiratory failure. Thank you for this consultation. I will follow along with you. I hope to meet with other family members as they arrive into town. PATIENT TIME: Greater than 90 minutes spent doing the consultation. More than half the time spent in direct patient contact. [id number]/CPS #: [id number] MTDD
[2017-01-17 14:49] LABS: FIO2 70; Resp Rate 24
[2017-01-17 14:54] LABS: PCO2 Arterial 50 mmHg (35-45)
--- NOTE | 2017-01-17 18:49 | PN ---
Progress Note - Progress Note Note: Central Line Procedure Note Indication: Hypotension/shock, poor vascular access Consent was signed by Son , placed in bedside chart. Risks of procedure were explained if possible, all risks of pain/discomfort, bleeding, infection, PTX, Hemotx, need for chest tube, air/wire embolism, vessel injury, , and failed procedure disclosed and understanding verbalized - Prior labs/history was reviewed prior to procedure - Full sterile precautions with chlorhexidine/full drapes/gowns/gloves utilized - left internal jugular vein visualized with ultrasound - Vessel accessed under ultrasound guidance with return of nonpulsatile blood. A guidewire was passed into vessel and confirmed in vessel with ultrasound. 1 attempt was made to access vessel. Vessel was dilated and cathetor was passed over wire into vessel. All ports demonstrated good blood return and flushed. Catheter was sutured to site and dressing applied Adequate hemostasis was achieved, EBL <5 cc No immediate complications noted, patient tolerated procedure well. CXR pending for confirmation Soto Kaufman MD Residential Specialist (electronically signed)
--- NOTE | 2017-01-17 18:50 | PN ---
Progress Note - Progress Note Note: Arterial Line Procedure Note Indication: hypotension/shock Consent was signed by Son , placed in bedside chart. Risk/Benefits of procedure explained. - Prior labs/history was reviewed prior to procedure - Full sterile precautions with chlorhexidine/full drapes/gowns/gloves utilized - right radial artery visualized with US - Vessel accessed with return of pulsatile blood. 1 attempt was made to access vessel. A cathetor was threaded over wire into vessel. Good arterial waveform was observed on monitor. - Arterial Catheter was sutured to site - Adequate hemostasis was achieved, EBL <5cc No immediate complications noted, patient tolerated procedure well. Dressing applied to site. Soto Kaufman MD Compliance Field Technician (electronically signed)
--- NOTE | 2017-01-17 19:09 | RAD ---
INDICATION: IJ placement COMPARISON: January 17, 2017 TECHNIQUE: An AP portable view obtained at 1852 hours is submitted. FINDINGS: Bones/Soft Tissues: There are no acute bony findings. There is an endotracheal tube in satisfactory position. A nasogastric tube passes normally through the mediastinum. There is a left IJ catheter terminating in the superior vena cava. Right-sided port catheter terminating in superior vena cava, unchanged Cardiomediastinal: The cardiomediastinal silhouette is normal in size. Lungs: Diffuse bilateral pulmonary parenchymal masses with areas of confluence, unchanged. No pneumothorax Pleura: There are no pleural effusions. Other: None IMPRESSION: LEFT IJ CATHETER IN APPROPRIATE POSITION. NO PNEUMOTHORAX. NO ADDITIONAL INTERVAL CHANGES
[2017-01-17] MEDS: ZOSYN 3.375 GM Q8H per EXTENDED INFUSION IVPB SCH ×2 (19:16)
[2017-01-18] MEDS: Cefepime(*) 2 GM in NS 0.9% 50 ML* 50 ML IVPB SCH ×2 (02:35→14:10)
[2017-01-18] MEDS: Norepinephrine 16MCG/ML IVPRE* 4,000 MCG/250 ML BAG IV SCH (02:36)
[2017-01-18] MEDS: Chlorhexidine MOUTHWASH 0.12%* 15 ML UDC TOPICAL SCH ×5 (02:37→20:05)
[2017-01-18] MEDS: Propofol* 100 ML IV SCH ×3 (02:41→22:23)
[2017-01-18] MEDS: NS 0.9% 1000 ML* 1,000 ML IV SCH ×2 (03:37→10:15)
[2017-01-18] MEDS: Levothyroxine TAB* 25 MCG TAB PO SCH (05:31)
[2017-01-18 05:46] LABS: Hematocrit 41 % (42-52); Hemoglobin 12.4 g/dl (14.0-18.0); Mean Corpuscular HGB Conc 30 g/dl (31-36); Mean Corpuscular Hemoglobin 29 pg (27-31); Mean Corpuscular Volume 96 fL (80-94); Mean Platelet Volume 8 um3 (7.4-10.4); Red Blood Count 4.22 10^6/ul (4.0-5.4); Red Cell Distribution Width 20 % (10.5-15); White Blood Count 11.3 10^3/ul (3.5-10.8)
[2017-01-18 05:48] LABS: Comments Flag Yes
[2017-01-18 06:01] LABS: Calcium 7.4 mg/dL (8.6-10.3); EGFR African American 55.6 (>60); EGFR Non-African American 43.2 (>60); Globulin 3.6 g/dL (2-4); Potassium 4.6 mmol/L (3.5-5.0); Total Bilirubin 0.4 mg/dL (0.2-1.0); Total Protein 5.6 g/dL (6.4-8.9)
--- NOTE | 2017-01-18 08:08 | RAD ---
INDICATION: Evaluate infiltrates COMPARISON: January 17, 2017 TECHNIQUE: An AP portable view obtained at 0615 hours is submitted. FINDINGS: Bones/Soft Tissues: There are no acute bony findings. The tubes and catheters to include the endotracheal tube remain in satisfactory positions Cardiomediastinal: The cardiomediastinal silhouette is normal in size. Lungs: Diffuse alveolar opacities with areas of consolidation appearing unchanged. Pleura: Small bilateral effusions. Other: None IMPRESSION: NO INTERVAL CHANGES. DIFFUSE ALVEOLAR OPACITIES WITH AREAS OF CONFLUENCE
[2017-01-18] MEDS: Amiodarone TAB* 200 MG PO SCH (09:07)
[2017-01-18] MEDS: Pantoprazole IV* 40 MG IV SCH (11:26)
[2017-01-18] MEDS ORDERED: Vancomycin Trough Check NOTE FOLLOW UP ONE (11:30)
[2017-01-18] MEDS: Vancomycin(*) 750 MG in NS 0.9% 250 ML* 250 ML IVPB SCH (12:03)
[2017-01-18 13:07] LABS: BF PH 7.4
[2017-01-18 14:51] LABS: Glucose, BF 114 mg/dL; Total Protein, BF 3.6 g/dL
--- NOTE | 2017-01-18 15:51 | PN ---
Progress Note - Progress Note Date of Service: 01/18/17 Note: Progress Note - Critical Care 24 hour events: -yesterday acutely more hypotensive, requiring vasopressin, maxed on levophed and vaso; given iVF bolus and decreased requirements afterward -on propofol but awakens and follows commands. -afebrile now. making urine, positive balance noted. Tele: Afib, rate controlled in 60s Vitals: Vital Signs Temp 98.1 F 01/18/17 14:15 Pulse 68 01/18/17 14:15 Resp 23 01/18/17 14:15 BP 99/58 01/18/17 12:00 Pulse Ox 96 01/18/17 14:15 Intake & Output 01/17/17 01/18/17 01/18/17 18:59 06:59 18:59 Intake Total 1670 3687.2 1623 Output Total 875 660 375 Balance 795 3027.2 1248 Weight 150 lb 2.157 oz Intake: IV Fluids 1096 2244 1282 ABX 265 NS (0.9%) 831 2244 1282 IVPB 324 ABX - CEFEPIME 55 ABX - VANCOMYCIN 269 Medicated IV 529 1039.2 241 CC - Norepinephrine/ 434 742 70 Levophed CC - Propofol/Diprivan 89 206 120 VASOPRESSIN 6 91.2 51 Tube Feeding Flush Amount 45 80 100 Output: NG Tube Drainage Amount 600 Ly 275 660 375 O2/Vent: AC 16/450/+7/70% Infusions: NS 125cc/hr, propofol, levophed 3mcg/min, vaso 2.4 u/hr Current Medications: Acetaminophen (Tylenol Tab*) 650 mg PO Q6H PRN PRN Reason: FEVER Last Admin: 01/16/17 09:42 Dose: 650 mg Albuterol (Ventolin 2.5 Mg/3 Ml Neb.[place]*) 2.5 mg INH Q2H PRN PRN Reason: SOB/WHEEZING Amiodarone HCl (Cordarone Tab*) 100 mg PO DAILY PJ Last Admin: 01/18/17 09:07 Dose: 100 mg Benzonatate (Tessalon Cap*) 100 mg PO Q8H PRN PRN Reason: COUGH Last Admin: 01/16/17 04:11 Dose: 100 mg Chlorhexidine Gluconate (Peridex Mouth Wash 0.12%*) 15 ml TOPICAL Q4H PJ Last Admin: 01/18/17 15:24 Dose: 15 ml Cefepime HCl 2 gm/ Sodium (Chloride) 50 mls @ 100 mls/hr IVPB Q12H [facility] Last Admin: 01/18/17 14:10 Dose: 100 mls/hr Vancomycin HCl 750 mg/ Sodium (Chloride) 250 mls @ 166.667 mls/hr IVPB Q12H [facility] Last Admin: 01/18/17 12:03 Dose: 166.667 mls/hr Propofol (Diprivan*) 100 mls @ 12.312 mls/hr IV .(Initial Rate) PJ; 30 MCG/KG/ MIN PRN Reason: Protocol Last Admin: 01/18/17 09:06 Dose: 14.1 mls/hr Norepinephrine Bitartrate (Levophed 16 Mcg/Ml Premix Bag*) 4,000 mcg in 250 mls @ 0 mls/hr IV .INITIAL RATE PJ; 0 MCG/MIN PRN Reason: Protocol Last Admin: 01/18/17 02:36 Dose: 22.5 mls/hr Vasopressin 100 units/ (Dextrose) 250 mls @ 6 mls/hr IVPB .PER RATE PJ; 0.04 UNITS/MIN PRN Reason: Protocol Dextrose/Sodium Chloride (D5w 1/2 Ns 1000 Ml Bag*) 1,000 mls @ 75 mls/hr IV PER RATE PJ Levothyroxine Sodium (Synthroid Tab*) 25 mcg PO DAILY@0600 [facility] Last Admin: 01/18/17 05:31 Dose: 25 mcg Ondansetron HCl (Zofran Inj*) 4 mg IV Q4H PRN PRN Reason: NAUSEA/VOMITING Pantoprazole Sodium (Protonix Iv*) 40 mg IV Q24H [facility] Last Admin: 01/18/17 11:26 Dose: 40 mg Pharmacy Consult (Vancomycin Per Pharmacy*) 1 note FOLLOW UP . PRN PRN Reason: PER PROTOCOL Pharmacy Profile Note (Vancomycin Trough Check) 1 note FOLLOW UP ONCE ONE Stop: 01/20/17 11:31 Physical Exam: General: intubated, sedated; moves spontaneously and awakens Head: normocephalic, atraumatic HEENT: no pallor, no icterus, moist mucous membranes Neck: soft, supple, no jvd CVS: normal rate, irregular, no murmur Resp: bilateral air entry, rhales improved; mild rhales/rhonchi right upper field, no wheeze, acc muscle use Abdomen: soft, nontender, far less distended, bowel sounds+ Ext: pulses+, warm ext, no edema Skin: beginnings of stage 1 on the sacrum Neuro: intubated, sedated Labs: Laboratory Results - last 24 hr 01/16/17 01/16/17 01/16/17 17:15 17:15 17:15 WBC RBC Hgb Hct MCV MCH MCHC RDW Plt Count MPV Neut % (Auto) Lymph % (Auto) [place] % (Auto) Eos % (Auto) Baso % (Auto) Absolute Neuts (auto) Absolute Lymphs (auto) Absolute Monos (auto) Absolute Eos (auto) Absolute Basos (auto) Absolute Nucleated RBC Nucleated RBC % Sodium Potassium Chloride Carbon Dioxide Anion Gap BUN Creatinine Est GFR ( Amer) Est GFR (Non-Af Amer) BUN/Creatinine Ratio Glucose Calcium Total Bilirubin AST ALT Alkaline Phosphatase Total Protein Albumin Globulin Albumin/Globulin Ratio Fluid Source Peritoneal Peritoneal Peritoneal Fluid pH 7.4 Fluid Glucose 114 Fluid Total Protein Fluid LDH Fluid Amylase 46 Vancomycin Trough 01/16/17 01/16/17 01/18/17 17:15 17:15 05:29 WBC RBC Hgb Hct MCV MCH MCHC RDW Plt Count MPV Neut % (Auto) Lymph % (Auto) [place] % (Auto) Eos % (Auto) Baso % (Auto) Absolute Neuts (auto) Absolute Lymphs (auto) Absolute Monos (auto) Absolute Eos (auto) Absolute Basos (auto) Absolute Nucleated RBC Nucleated RBC % Sodium 147 H Potassium 4.6 Chloride 117 H Carbon Dioxide 21 L Anion Gap 9 BUN 45 H Creatinine 1.55 H Est GFR ( Amer) 55.6 Est GFR (Non-Af Amer) 43.2 BUN/Creatinine Ratio 29.0 H Glucose 108 H Calcium 7.4 L Total Bilirubin 0.40 AST 32 ALT 12 Alkaline Phosphatase 295 H Total Protein 5.6 L Albumin 2.0 L Globulin 3.6 Albumin/Globulin Ratio 0.6 L Fluid Source Peritoneal Peritoneal Fluid pH Fluid Glucose Fluid Total Protein 3.6 Fluid LDH 158 Fluid Amylase Vancomycin Trough 01/18/17 01/18/17 05:29 11:25 WBC 11.3 H RBC 4.22 Hgb 12.4 L Hct 41 L MCV 96 H MCH 29 MCHC 30 L RDW 20 H Plt Count 303 MPV 8 Neut % (Auto) 89.6 H Lymph % (Auto) 2.0 L [place] % (Auto) 7.9 Eos % (Auto) 0.3 Baso % (Auto) 0.2 Absolute Neuts (auto) 10.1 H Absolute Lymphs (auto) 0.2 L Absolute Monos (auto) 0.9 H Absolute Eos (auto) 0 Absolute Basos (auto) 0 Absolute Nucleated RBC 0.01 Nucleated RBC % 0.1 Sodium Potassium Chloride Carbon Dioxide Anion Gap BUN Creatinine Est GFR ( Amer) Est GFR (Non-Af Amer) BUN/Creatinine Ratio Glucose Calcium Total Bilirubin AST ALT Alkaline Phosphatase Total Protein Albumin Globulin Albumin/Globulin Ratio Fluid Source Fluid pH Fluid Glucose Fluid Total Protein Fluid LDH Fluid Amylase Vancomycin Trough 15.4 Imaging: cxr 01/16 - bilateral metastatic lesions+; RUL/RML patchy opacity+ CT chest 01/15 - reviewed - moderate right pleural effusion+, smaller left effusion+, bilateral met lesions in lungs, Ride sided patchy opacity/ consolidation; abdominal ascites+, hepatic lesions+ cxr 01/17 - ett above [place]; small/mod bilateal effusions; RUL opacity still present but more noted on left side now; noted metastatic bilateral lesions+, ngt+, right port+ cxr 01/18 - ett above keya; left IJ cathetor in place; port on right; increased multilobar infiltrates+, still RUL patchy consolidation, right effusion+ Assessment: 81y M w/ pmhx of 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 Progressive fatigue, abdominal discomfort, distended abdomen. Decreased appetite+. Sputum+. Found febrile. Became hypoxic, tachypneic, found to be in respiratory acidosis, req NIV in ICU. -Acute Hypercapneic and Hypoxic Respiratory Failure, intubated 01/16 -Right upper/middle consolidation/pneumonia + acute aspiration pneumonitis -Right moderate pleural effusion -Hyperlactatemia, resolved -EMILE, pre-renal vs septic ATN -hyperkalemia -Coagulopathy, likely sepsis induced; resolved -Septic shock -Abdominal Ascites; s/p paracentesis 01/16 -Encephelopathy, metabolic/toxic -Metastatic colo-rectal Ca to lung/liver Plan: Neuro- on propofol for sedation, awakens. neurochecks as per protocol. asp prec. fall prec. CVS- septic shock, on less levo today, remains on vaso. afebrile. cont cepfeime and vanco. IVF NS 125-> d5w @ 50 for hypernatr/hyperchlor. making urine, positive balance. trend CVP. obtain mixed venous gas Resp- Intubated, on AC mode, CXR reviewed, progression of infiltrates. ABG now, VBG now to assess hemodyn. Still on 70% fio2, peep 8. Bronchodilators for rhonchi. IV abx cefepime and vancomycin. Pulm Toilet. Sedation for vent synchrony. Titrate fio2 to keep sat >92% ID- WBC 11, afebrile now. Cover for HCAP and aspiration given metastatic CA, on immunotherapy and hospitalizations. Cefepime (day#4), Vanco (day#3). GI- s/p paracentesis with 5L removed, chemistries returned and show exudative type fluid, culture neg so no SBP. likely exudative from malignancy. Minimal from NGT. PPI daily. no diarrhea noted. Hg stable. Renal- EMILE, Cr improving now, positive balance. nonoliguric. Septic ATN? change to d5w for hypernatremia and hyperchloremia. no edema. K noted <5. ly+. Heme- stable hg. plt stable. heparin held and off due to procedures; will restart today. Endo- FS as needed. Musculsk- bedrest for now. pressure ulcer prophylaxis Wounds- none Nutrition- start feeds if able to tolerate. DVT prophylaxis: SCDs, heparin iv to be started GI prophylaxis: PPI Central Line: no, right chest wall port+ Arterial Line: no Ly Cathetor: yes Disposition: ICU for septic shock, pneumonia, hypercap/hypoxic resp failure Code Status: Full code Total Critical Care time is 45 minutes, excluding procedures/teaching Soto Kaufman MD [employer] (Electronically Signed)
[2017-01-18] MEDS ORDERED: Heparin VIAL(*) 5000 UNITS/ML VIAL (FIVE THOUSAND) IV SCH (16:00)
[2017-01-18] MEDS ORDERED: D5W 1/2 NS 1000 ML BAG* 1,000 ML IV SCH (16:00)
[2017-01-18 16:40] LABS: Hematocrit 38 % (42-52); Hemoglobin 11.6 g/dl (14.0-18.0); Mean Corpuscular HGB Conc 31 g/dl (31-36); Mean Corpuscular Hemoglobin 29 pg (27-31); Mean Corpuscular Volume 96 fL (80-94); Mean Platelet Volume 8 um3 (7.4-10.4); Red Blood Count 3.95 10^6/ul (4.0-5.4); Red Cell Distribution Width 21 % (10.5-15); White Blood Count 12.1 10^3/ul (3.5-10.8)
[2017-01-18 16:41] LABS: Venous Bicarbonate HCO3 19.7 mmol/L (24-28)
[2017-01-18 16:45] LABS: Comments Flag Yes
[2017-01-18] MEDS ORDERED: D5W 1000 ML BAG* 1,000 ML IV SCH (17:00)
[2017-01-18 17:01] LABS: PCO2 Arterial 48 mmHg (35-45)
[2017-01-18] MEDS: Heparin DRIP 25,000 UNITS(*) 25,000 UNITS/500 ML BAG IV SCH (17:12)
[2017-01-18 20:20] LABS: FIO2 50; Patient Temp ABG 97.7; Resp Rate 30; Ventilator Volume 450
[2017-01-18 20:23] LABS: PCO2 Arterial 44 mmHg (35-45)
[2017-01-18] MEDS ORDERED: Diltiazem IV* 5 MG/ML 5 ML VIAL (for loading dose/IV Push) (25 MG) IV PUSH ONE (21:00)
[2017-01-18] MEDS ORDERED: Diltiazem DRIP* 100 MG/100 ML ADDV.BAG IVPB SCH (21:00)
[2017-01-18] MEDS ORDERED: Amiodarone 360 MG IVPREMIX* 360 MG/200 ML BAG IV ONE (22:37)
[2017-01-18] MEDS ORDERED: Amiodarone 150 MG IVPREMIX* 150 MG/100 ML BAG IV ONE (22:37)
[2017-01-18] MEDS: Amiodarone DRIP* 1.8 MG/ML 200 ML IV SCH (23:00)
[2017-01-18] MEDS ORDERED: Amiodarone DRIP 150 MG in D5W 100 ML *LOADING DOSE* OVER 10 MIN IV ONE (23:00)
[2017-01-19] MEDS: Chlorhexidine MOUTHWASH 0.12%* 15 ML UDC TOPICAL SCH ×6 (00:18→21:40)
[2017-01-19] MEDS: Vancomycin(*) 750 MG in NS 0.9% 250 ML* 250 ML IVPB SCH ×3 (00:18→23:47)
[2017-01-19 01:13] LABS: BUN/Creatinine Ratio 31.8 (8-20); Calcium 7.7 mg/dL (8.6-10.3); EGFR African American 66.9 (>60); EGFR Non-African American 52.1 (>60); Potassium 4.2 mmol/L (3.5-5.0)
[2017-01-19] MEDS: Norepinephrine 16MCG/ML IVPRE* 4,000 MCG/250 ML BAG IV SCH (01:18)
[2017-01-19] MEDS: Cefepime(*) 2 GM in NS 0.9% 50 ML* 50 ML IVPB SCH ×2 (02:01→14:25)
[2017-01-19] MEDS: Propofol* 100 ML IV SCH ×3 (04:03→20:05)
[2017-01-19] MEDS: Amiodarone DRIP* 1.8 MG/ML 200 ML IV SCH (04:56)
[2017-01-19] MEDS ORDERED: Amiodarone 360 MG IVPREMIX* 360 MG/200 ML BAG IV SCH (05:00)
[2017-01-19] MEDS: Levothyroxine TAB* 25 MCG TAB PO SCH (06:16)
[2017-01-19 06:50] LABS: Hematocrit 40 % (42-52); Hemoglobin 12.3 g/dl (14.0-18.0); Mean Corpuscular HGB Conc 31 g/dl (31-36); Mean Corpuscular Hemoglobin 30 pg (27-31); Mean Corpuscular Volume 95 fL (80-94); Mean Platelet Volume 9 um3 (7.4-10.4); Red Blood Count 4.14 10^6/ul (4.0-5.4); Red Cell Distribution Width 21 % (10.5-15); White Blood Count 10.4 10^3/ul (3.5-10.8)
--- NOTE | 2017-01-19 08:27 | RAD ---
Indication: Evaluate infiltrates. Single frontal view of the chest performed at 0605 hours was reviewed. Comparison is made with previous exam dated January 18, 2017. Extensive pulmonary masses are noted bilaterally which are unchanged from previous exam. Bilateral pleural effusions are noted. ET tube central line are in place. IMPRESSION: MULTIPLE PULMONARY MASSES ARE NOTED.
[2017-01-19] MEDS: Amiodarone TAB* 200 MG PO SCH (10:00)
[2017-01-19] MEDS: Pantoprazole IV* 40 MG IV SCH (11:24)
--- NOTE | 2017-01-19 11:50 | PN ---
Progress Note - Progress Note Date of Service: 01/19/17 Note: Progress Note - Critical Care 24 hour events: -overnight noted rapid afib, given cardizem push and drip but then started having pauses. -i was called and switched to amiodarone, d/c cardizem iv -this morning in 60s, less jeffery issues now. weaned off levo and vaso. -on propofol but awakens with stimuli. -still on AC, intubated, 50% fio2 now. vent changes for the metabolic acidosis and incomplete resp compensation. Tele: Afib, rate controlled in 60s now Vitals: Vital Signs Temp 97.9 F 01/19/17 06:15 Pulse 64 01/19/17 09:03 Resp 30 01/19/17 09:03 BP 103/80 01/19/17 00:18 Pulse Ox 96 01/19/17 09:03 Intake & Output 01/18/17 01/19/17 01/19/17 18:59 06:59 18:59 Intake Total 1623 2495.1 Output Total 375 525 Balance 1248 1970.1 Weight 136 lb 14.513 oz Intake: IV Fluids 1282 888 D5W 888 NS (0.9%) 1282 IVPB 370 ABX - CEFEPIME 110 ABX - VANCOMYCIN 260 Medicated IV 241 705.4 CC - Amiodarone 239 CC - Norepinephrine/ 70 135.6 Levophed CC - Propofol/Diprivan 120 231 GEN - Diltiazem/Cardizem 3.9 VASOPRESSIN 51 95.9 Heparin 243.7 Tube Feeding 198 Tube Feeding Flush Amount 100 90 Output: Ly 375 525 O2/Vent: AC 16/450/+8/50% Infusions: heparin infusion, amio iv, d5w @ 50cc/hour Current Medications: Acetaminophen (Tylenol Tab*) 650 mg PO Q6H PRN PRN Reason: FEVER Last Admin: 01/16/17 09:42 Dose: 650 mg Albuterol (Ventolin 2.5 Mg/3 Ml Neb.[place]*) 2.5 mg INH Q2H PRN PRN Reason: SOB/WHEEZING Amiodarone HCl (Cordarone Tab*) 100 mg PO DAILY PJ Last Admin: 01/18/17 09:07 Dose: 100 mg Benzonatate (Tessalon Cap*) 100 mg PO Q8H PRN PRN Reason: COUGH Last Admin: 01/16/17 04:11 Dose: 100 mg Chlorhexidine Gluconate (Peridex Mouth Wash 0.12%*) 15 ml TOPICAL Q4H PJ Last Admin: 01/19/17 05:37 Dose: 15 ml Heparin Sodium (Porcine) (Heparin Vial(*)) 0 units IV .PER PROTOCOL PJ PRN Reason: Protocol Cefepime HCl 2 gm/ Sodium (Chloride) 50 mls @ 100 mls/hr IVPB Q12H PJ Last Admin: 01/19/17 02:01 Dose: 100 mls/hr Vancomycin HCl 750 mg/ Sodium (Chloride) 250 mls @ 166.667 mls/hr IVPB Q12H PJ Last Admin: 01/19/17 00:18 Dose: 166.667 mls/hr Propofol (Diprivan*) 100 mls @ 12.312 mls/hr IV .(Initial Rate) PJ; 30 MCG/KG/ MIN PRN Reason: Protocol Last Admin: 01/19/17 11:38 Dose: 12.312 mls/hr Norepinephrine Bitartrate (Levophed 16 Mcg/Ml Premix Bag*) 4,000 mcg in 250 mls @ 0 mls/hr IV .INITIAL RATE PJ; 0 MCG/MIN PRN Reason: Protocol Last Admin: 01/19/17 01:18 Dose: 15 mls/hr Vasopressin 100 units/ (Dextrose) 250 mls @ 6 mls/hr IVPB .PER RATE PJ; 0.04 UNITS/MIN PRN Reason: Protocol Heparin Sodium/Dextrose (Heparin Drip 25,000 Units(*)) 25,000 units in 500 mls @ 0 mls/hr IV .NO INITIAL BOLUS PJ; As Directed PRN Reason: Protocol Last Admin: 01/18/17 17:12 Dose: 19 mls/hr Dextrose (D5w 1000 Ml Bag*) 1,000 mls @ 50 mls/hr IV PER RATE PJ Last Admin: 01/18/17 16:20 Dose: 50 mls/hr Amiodarone HCl (Nexterone 360 Mg/200 Ml Ivpremix*) 360 mg in 200 mls @ 16.666 mls/hr IV .PER PROTOCOL PJ; 0.5 MG/MIN PRN Reason: Protocol Stop: 01/19/17 23:00 Levothyroxine Sodium (Synthroid Tab*) 25 mcg PO DAILY@0600 [facility] Last Admin: 01/19/17 06:16 Dose: 25 mcg Ondansetron HCl (Zofran Inj*) 4 mg IV Q4H PRN PRN Reason: NAUSEA/VOMITING Pantoprazole Sodium (Protonix Iv*) 40 mg IV Q24H [facility] Last Admin: 01/19/17 11:24 Dose: 40 mg Pharmacy Consult (Vancomycin Per Pharmacy*) 1 note FOLLOW UP . PRN PRN Reason: PER PROTOCOL Pharmacy Profile Note (Vancomycin Trough Check) 1 note FOLLOW UP ONCE ONE Stop: 01/20/17 11:31 Physical Exam: General: intubated, sedated; moves spontaneously and awakens Head: normocephalic, atraumatic HEENT: no pallor, no icterus, moist mucous membranes Neck: soft, supple, no jvd CVS: normal/jeffery, irregular, no murmur Resp: bilateral air entry, rhales improved; mild rhales/rhonchi right upper field, no wheeze, acc muscle use Abdomen: soft, nontender, less distended, bowel sounds+ Ext: pulses+, cool ext, no edema Skin: beginnings of stage 1 on the sacrum Neuro: intubated, sedated Labs: Laboratory Results - last 24 hr 01/16/17 01/16/17 01/16/17 17:15 17:15 17:15 WBC RBC Hgb Hct MCV MCH MCHC RDW Plt Count MPV Neut % (Auto) Lymph % (Auto) [place] % (Auto) Eos % (Auto) Baso % (Auto) Absolute Neuts (auto) Absolute Lymphs (auto) Absolute Monos (auto) Absolute Eos (auto) Absolute Basos (auto) Absolute Nucleated RBC Nucleated RBC % APTT Patient Temperature ABG pH ABG pCO2 ABG pO2 ABG HCO3 ABG O2 Saturation ABG Base Excess VBG pH VBG pCO2 VBG pO2 VBG HCO3 VBG O2 Saturation VBG Base Excess Respiration Rate O2 Delivery Device Ventilator Type Vent Mode FiO2 Inspiratory Time PEEP Pressure Support Pressure Control EPAP IPAP BiPAP Sodium Potassium Chloride Carbon Dioxide Anion Gap BUN Creatinine Est GFR ( Amer) Est GFR (Non-Af Amer) BUN/Creatinine Ratio Glucose Lactic Acid Calcium Fluid Source Peritoneal Peritoneal Peritoneal Fluid pH 7.4 Fluid Glucose 114 Fluid Total Protein Fluid Amylase 46 01/16/17 01/18/1701/18/17 17:15 16:23 16:23 WBC RBC Hgb Hct MCV MCH MCHC RDW Plt Count MPV Neut % (Auto) Lymph % (Auto) [place] % (Auto) Eos % (Auto) Baso % (Auto) Absolute Neuts (auto) Absolute Lymphs (auto) Absolute Monos (auto) Absolute Eos (auto) Absolute Basos (auto) Absolute Nucleated RBC Nucleated RBC % APTT Patient Temperature ABG pH 7.22 L ABG pCO2 48 H ABG pO2 82 ABG HCO3 18.3 L ABG O2 Saturation 96.7 ABG Base Excess -8.4 L VBG pH VBG pCO2 VBG pO2 VBG HCO3 VBG O2 Saturation VBG Base Excess Respiration Rate O2 Delivery Device Ventilator Type Vent Mode FiO2 Inspiratory Time PEEP Pressure Support Pressure Control EPAP IPAP BiPAP Sodium Potassium Chloride Carbon Dioxide Anion Gap BUN Creatinine Est GFR ( Amer) Est GFR (Non-Af Amer) BUN/Creatinine Ratio Glucose Lactic Acid 1.0 Calcium Fluid Source Peritoneal Fluid pH Fluid Glucose Fluid Total Protein 3.6 Fluid Amylase 01/18/17 01/18/17 01/18/17 16:23 16:23 16:23 WBC 12.1 H RBC 3.95 L Hgb 11.6 L Hct 38 L MCV 96 H MCH 29 MCHC 31 RDW 21 H Plt Count 329 MPV 8 Neut % (Auto) 89.2 H Lymph % (Auto) 2.5 L [place] % (Auto) 7.2 Eos % (Auto) 0.8 Baso % (Auto) 0.3 Absolute Neuts (auto) 10.8 H Absolute Lymphs (auto) 0.3 L Absolute Monos (auto) 0.9 H Absolute Eos (auto) 0.1 Absolute Basos (auto) 0 Absolute Nucleated RBC 0.01 Nucleated RBC % 0.1 APTT 27.3 Patient Temperature ABG pH ABG pCO2 ABG pO2 ABG HCO3 ABG O2 Saturation ABG Base Excess VBG pH 7.24 L VBG pCO2 49 VBG pO2 49 H VBG HCO3 19.7 L VBG O2 Saturation 87.4 H VBG Base Excess -6.4 L Respiration Rate O2 Delivery Device Ventilator Type Vent Mode FiO2 Inspiratory Time PEEP Pressure Support Pressure Control EPAP IPAP BiPAP Sodium Potassium Chloride Carbon Dioxide Anion Gap BUN Creatinine Est GFR ( Amer) Est GFR (Non-Af Amer) BUN/Creatinine Ratio Glucose Lactic Acid Calcium Fluid Source Fluid pH Fluid Glucose Fluid Total Protein Fluid Amylase 01/18/17 01/19/17 01/19/17 20:16 00:44 00:44 WBC RBC Hgb Hct MCV MCH MCHC RDW Plt Count MPV Neut % (Auto) Lymph % (Auto) [place] % (Auto) Eos % (Auto) Baso % (Auto) Absolute Neuts (auto) Absolute Lymphs (auto) Absolute Monos (auto) Absolute Eos (auto) Absolute Basos (auto) Absolute Nucleated RBC Nucleated RBC % APTT 49.9 H Patient Temperature 97.7 ABG pH 7.28 L ABG pCO2 44 ABG pO2 101 H ABG HCO3 20.3 ABG O2 Saturation 98.8 H ABG Base Excess -5.9 L VBG pH VBG pCO2 VBG pO2 VBG HCO3 VBG O2 Saturation VBG Base Excess Respiration Rate 30 O2 Delivery Device Vent Ventilator Type 450 Vent Mode Apvcmv FiO2 50 Inspiratory Time Not Reportable PEEP 8 Pressure Support Not Reportable Pressure Control Not Reportable EPAP Not Reportable IPAP Not Reportable BiPAP Not Reportable Sodium 144 Potassium 4.2 Chloride 115 H Carbon Dioxide 22 Anion Gap 7 BUN 42 H Creatinine 1.32 H Est GFR ( Amer) 66.9 Est GFR (Non-Af Amer) 52.1 BUN/Creatinine Ratio 31.8 H Glucose 155 H Lactic Acid Calcium 7.7 L Fluid Source Fluid pH Fluid Glucose Fluid Total Protein Fluid Amylase 01/19/17 06:23 WBC 10.4 RBC 4.14 Hgb 12.3 L Hct 40 L MCV 95 H MCH 30 MCHC 31 RDW 21 H Plt Count 337 MPV 9 Neut % (Auto) 85.4 H Lymph % (Auto) 3.9 L [place] % (Auto) 6.9 Eos % (Auto) 3.1 Baso % (Auto) 0.7 Absolute Neuts (auto) 8.9 H Absolute Lymphs (auto) 0.4 L Absolute Monos (auto) 0.7 Absolute Eos (auto) 0.3 Absolute Basos (auto) 0.1 Absolute Nucleated RBC 0.01 Nucleated RBC % 0.1 APTT Patient Temperature ABG pH ABG pCO2 ABG pO2 ABG HCO3 ABG O2 Saturation ABG Base Excess VBG pH VBG pCO2 VBG pO2 VBG HCO3 VBG O2 Saturation VBG Base Excess Respiration Rate O2 Delivery Device Ventilator Type Vent Mode FiO2 Inspiratory Time PEEP Pressure Support Pressure Control EPAP IPAP BiPAP Sodium Potassium Chloride Carbon Dioxide Anion Gap BUN Creatinine Est GFR ( Amer) Est GFR (Non-Af Amer) BUN/Creatinine Ratio Glucose Lactic Acid Calcium Fluid Source Fluid pH Fluid Glucose Fluid Total Protein Fluid Amylase Imaging: cxr 01/16 - bilateral metastatic lesions+; RUL/RML patchy opacity+ CT chest 01/15 - reviewed - moderate right pleural effusion+, smaller left effusion+, bilateral met lesions in lungs, Ride sided patchy opacity/ consolidation; abdominal ascites+, hepatic lesions+ cxr 01/17 - ett above [place]; small/mod bilateal effusions; RUL opacity still present but more noted on left side now; noted metastatic bilateral lesions+, ngt+, right port+ cxr 01/18 - ett above keya; left IJ cathetor in place; port on right; increased multilobar infiltrates+, still RUL patchy consolidation, right effusion+ cxr 01/19 - ett in place, no change from prior, still progressive infiltrates+ Assessment: 81y M w/ pmhx of 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 Progressive fatigue, abdominal discomfort, distended abdomen. Decreased appetite+. Sputum+. Found febrile. Became hypoxic, tachypneic, found to be in respiratory acidosis, req NIV in ICU. -Acute Hypercapneic and Hypoxic Respiratory Failure, intubated 01/16 -Right upper/middle consolidation/pneumonia + acute aspiration pneumonitis -Right small/moderate pleural effusion -Hyperlactatemia, resolved -EMILE, pre-renal vs septic ATN -hyperkalemia -Coagulopathy, likely sepsis induced; resolved -Septic shock, improved; now severe sepsis still -Abdominal Ascites; s/p paracentesis 01/16 -Encephelopathy, metabolic/toxic -Metastatic colo-rectal Ca to lung/liver Plan: Neuro- on propofol for sedation, awakens. neurochecks as per protocol. asp prec. fall prec. CVS- septic shock but off pressors now. Afib but better rate control, less pauses noted now. on amio infusion, will complete protocol. Avoid BB/CCB due to pauses. on d5w @ 50cc/hour, Na stable and improving, Cl improving, Cr improving. afebrile. cont cepfeime and vanco. d5w @ 50 for hypernatr/ hyperchlor. making urine, positive balance. CVP noted 3-4 yesterday. VBG o2 sat was 80s yesterday, indicative of shunting/sepsis. Heparin Infusion for Afib, therap ptt. Resp- Intubated, on AC mode 50% fio2 now. CXR no change. ABG pending now, assess ventilation. Chem shows bicarb improved so pH should be better. Less fevers but progressive infitlrates/RUL patchy infiltrate. discussed with family there is a component of pneumonia, aspiration pneumonia from vomitting, as well as this could be progression of metastatic pulm infiltrates. Does not appear to be that diffuse ARDS/interstitial pattern we see with pneumonitis which could happen with immunotherapy (which he recieved). Discussed with family that I will add and trial him on Corticosteroids to see if inflammattory response improves. We discussed his poor resp status and this may be difficult for him to resolved and even come off vent. We discussed that we can trial and see how he does in coming days and they can decide if they think improvement is slow/ not at all and we are stuck with pt being intubated. They did state he has a WILL/HCP ? they will obtain. They would not like trach due to poor quality of life after I explained it to them. They asked and we discussed about DNR/DNI and compassionate weaning options also. Bronchodilators for rhonchi. IV abx cefepime and vancomycin. Pulm Toilet. Sedation for vent synchrony. Titrate fio2 to keep sat >92%. Start solumedrol 60mg iv q8h. ID- WBC 10, afebrile. Cover for HCAP and aspiration given metastatic CA, on immunotherapy and hospitalizations. Cefepime (day#5), Vanco (day#4). sputum cx with only 1+ yeast. GI- s/p paracentesis with 5L removed, exudative type fluid, culture neg, likely from malignancy. Minimal from NGT. PPI daily. no diarrhea noted. Hg stable. Started tube feeds, tolerating. Renal- EMILE, Cr improving now, positive balance. nonoliguric. Septic ATN? increase d5w to 75cc/hr for hypernatremia and hyperchloremia. no edema. K noted <5. ly+. Heme- stable hg. plt stable. heparin infusion for afib. Endo- FS as needed. Musculsk- bedrest for now. pressure ulcer prophylaxis Wounds- none Nutrition- jevity 1.2 @ 30cc/hr, tolerating feeds. DVT prophylaxis: SCDs, heparin iv GI prophylaxis: PPI Central Line: no, right chest wall port+ Arterial Line: no Ly Cathetor: yes Disposition: ICU for septic shock, pneumonia, hypercap/hypoxic resp failure Code Status: Full code At length discussion with all the sons at bedside, discussed current problems, goals of care and plan. they will discuss about DNR status and plan over the weekend. They were open and willing to try more care but kept in mind his disease state and progression and understood it. They did state they do agree on a DNR if things were to progress. Total Critical Care time is 45 minutes, excluding procedures/teaching Soto Kaufman MD [employer] (Electronically Signed)
[2017-01-19 11:58] LABS: FIO2 20; Resp Rate 30; Ventilator Volume 450
[2017-01-19 12:01] LABS: PCO2 Arterial 44 mmHg (35-45)
[2017-01-19] MEDS: D5W 1000 ML BAG* 1,000 ML IV SCH (13:20)
[2017-01-19] MEDS: methylPREDNISolone SOD 40 MG* 1 ML VIAL IV SCH ×2 (14:35→21:40)
[2017-01-19] MEDS: Albuterol 2.5 MG/3 ML NEB.SOL* (0.083%) INH PRN ×2 (15:50→22:10)
[2017-01-19] MEDS: Acetylcysteine INHALATION SOL* 200 MG/ML NEB.SOLN 10 ML INH SCH ×2 (15:50→22:10)
[2017-01-19 17:53] LABS: BUN/Creatinine Ratio 32.6 (8-20); Calcium 7.7 mg/dL (8.6-10.3); EGFR Non-African American 48.2 (>60); Potassium 4.4 mmol/L (3.5-5.0)
[2017-01-19] MEDS: Heparin DRIP 25,000 UNITS(*) 25,000 UNITS/500 ML BAG IV SCH (19:31)
[2017-01-19] MEDS: Acetaminophen TAB* 325 MG PO PRN (22:41)
[2017-01-20] MEDS: Chlorhexidine MOUTHWASH 0.12%* 15 ML UDC TOPICAL SCH ×7 (02:22→23:06)
[2017-01-20] MEDS: Propofol* 100 ML IV SCH ×4 (02:22→21:47)
[2017-01-20] MEDS: Cefepime(*) 2 GM in NS 0.9% 50 ML* 50 ML IVPB SCH ×2 (02:23→14:41)
[2017-01-20] MEDS: Levothyroxine TAB* 25 MCG TAB PO SCH (05:41)
[2017-01-20] MEDS: methylPREDNISolone SOD 40 MG* 1 ML VIAL IV SCH ×3 (05:41→20:35)
[2017-01-20 06:03] LABS: Hematocrit 40 % (42-52); Hemoglobin 12.5 g/dl (14.0-18.0); Mean Corpuscular HGB Conc 31 g/dl (31-36); Mean Corpuscular Hemoglobin 30 pg (27-31); Mean Corpuscular Volume 94 fL (80-94); Mean Platelet Volume 8 um3 (7.4-10.4); Red Blood Count 4.23 10^6/ul (4.0-5.4); Red Cell Distribution Width 20 % (10.5-15); White Blood Count 8.2 10^3/ul (3.5-10.8)
[2017-01-20 06:25] LABS: BUN/Creatinine Ratio 30.5 (8-20); Calcium 7.8 mg/dL (8.6-10.3); EGFR African American 57.3 (>60); EGFR Non-African American 44.6 (>60); Potassium 4.1 mmol/L (3.5-5.0)
[2017-01-20 06:42] LABS: FIO2 60; Patient Temp ABG 97; Resp Rate 30; Ventilator Volume 450
[2017-01-20 06:45] LABS: PCO2 Arterial 43 mmHg (35-45)
[2017-01-20] MEDS: D5W 1000 ML BAG* 1,000 ML IV SCH ×2 (07:53→23:07)
--- NOTE | 2017-01-20 08:15 | RAD ---
INDICATION: Infiltrates. COMPARISON: Comparison is made with a prior chest x-ray study from January 19, 2017. TECHNIQUE: A portable view of the chest was obtained. FINDINGS: Note is made of endotracheal, nasogastric and central venous catheters which appear unchanged. The heart is within normal limits in size. There are numerous bilateral pulmonary masses which appear unchanged. There are also small infiltrates at both lung bases and small bilateral pleural effusions. There appears to be no significant change from the prior study. IMPRESSION: BILATERAL PULMONARY MASSES, INFILTRATES AND SMALL BILATERAL PLEURAL EFFUSIONS, UNCHANGED.
[2017-01-20] MEDS: Amiodarone TAB* 200 MG PO SCH (08:32)
--- NOTE | 2017-01-20 10:36 | PN ---
Progress Note - Progress Note Date of Service: 01/20/17 Note: Progress Note - Critical Care 24 hour events: -bradycardia issues improved; more tachy at times now -off amio infusion, stopped after 12 hours of 1mg/min -off pressors; on heparin infusion, propofol, d5w -some gurgiling in mouth, question of aspiration, feeds held. ballon on ett checked and was slightly underdeflated and RT increased. no leak on vent. -awakens on less propofol -start on steroids yesterday -at length discussion with sons at bedside yesterday, about code status, medical conditions, future prognosis. Tele: Afib Vitals: Vital Signs Temp 96.9 F 01/20/17 07:00 Pulse 112 01/20/17 06:08 Resp 30 01/20/17 07:00 BP 116/92 01/20/17 06:08 Pulse Ox 95 01/20/17 06:08 Intake & Output 01/19/17 01/20/17 01/20/17 18:59 06:59 18:59 Intake Total 1271 2346 60 Output Total 150 1160 505 Balance 1121 1186 -445 Weight 160 lb 0.889 oz Intake: IV Fluids 415 1350 ABX - CEFEPIME 50 ABX - VANCOMYCIN 250 D5W 415 1050 Medicated IV 334 237 CC - Amiodarone 230 CC - Propofol/Diprivan 104 237 Heparin 166 237 Tube Feeding 266 432 Tube Feeding Flush Amount 90 90 60 Output: Urine 55 Ly 150 460 Tube Feeding Residual 700 450 Amount Wasted O2/Vent: AC 30/450/+6/60% Infusions: heparin iv, d5w @ 75cc/hour, propofol Current Medications: Acetaminophen (Tylenol Tab*) 650 mg PO Q6H PRN PRN Reason: FEVER Last Admin: 01/19/17 22:41 Dose: 650 mg Albuterol (Ventolin 2.5 Mg/3 Ml Neb.[place]*) 2.5 mg INH Q2H PRN PRN Reason: SOB/WHEEZING Last Admin: 01/19/17 22:10 Dose: 2.5 mg Amiodarone HCl (Cordarone Tab*) 100 mg PO DAILY PJ Last Admin: 01/20/17 08:32 Dose: 100 mg Benzonatate (Tessalon Cap*) 100 mg PO Q8H PRN PRN Reason: COUGH Last Admin: 01/16/17 04:11 Dose: 100 mg Chlorhexidine Gluconate (Peridex Mouth Wash 0.12%*) 15 ml TOPICAL Q4H PJ Last Admin: 01/20/17 08:15 Dose: 15 ml Heparin Sodium (Porcine) (Heparin Vial(*)) 0 units IV .PER PROTOCOL PJ PRN Reason: Protocol Cefepime HCl 2 gm/ Sodium (Chloride) 50 mls @ 100 mls/hr IVPB Q12H PJ Last Admin: 01/20/17 02:23 Dose: 100 mls/hr Vancomycin HCl 750 mg/ Sodium (Chloride) 250 mls @ 166.667 mls/hr IVPB Q12H PJ Last Admin: 01/19/17 23:47 Dose: 166.667 mls/hr Propofol (Diprivan*) 100 mls @ 12.312 mls/hr IV .(Initial Rate) PJ; 30 MCG/KG/ MIN PRN Reason: Protocol Last Admin: 01/20/17 07:17 Dose: 17.4 mls/hr Norepinephrine Bitartrate (Levophed 16 Mcg/Ml Premix Bag*) 4,000 mcg in 250 mls @ 0 mls/hr IV .INITIAL RATE PJ; 0 MCG/MIN PRN Reason: Protocol Last Admin: 01/19/17 01:18 Dose: 15 mls/hr Heparin Sodium/Dextrose (Heparin Drip 25,000 Units(*)) 25,000 units in 500 mls @ 0 mls/hr IV .NO INITIAL BOLUS PJ; As Directed PRN Reason: Protocol Last Admin: 01/19/17 19:31 Dose: 20.5 mls/hr Dextrose (D5w 1000 Ml Bag*) 1,000 mls @ 75 mls/hr IV PER RATE PJ Last Admin: 01/20/17 07:53 Dose: 75 mls/hr Doxycycline Hyclate 100 mg/ (Sodium Chloride) 250 mls @ 250 mls/hr IVPB Q12H [facility] Levothyroxine Sodium (Synthroid Tab*) 25 mcg PO DAILY@0600 PJ Last Admin: 01/20/17 05:41 Dose: 25 mcg Methylprednisolone Sodium Succinate (Solu-Medrol 40 Mg) 60 mg IV Q8H PJ Last Admin: 01/20/17 05:41 Dose: 60 mg Ondansetron HCl (Zofran Inj*) 4 mg IV Q4H PRN PRN Reason: NAUSEA/VOMITING Pantoprazole Sodium (Protonix Iv*) 40 mg IV Q24H PJ Last Admin: 01/19/17 11:24 Dose: 40 mg Pharmacy Consult (Vancomycin Per Pharmacy*) 1 note FOLLOW UP . PRN PRN Reason: PER PROTOCOL Pharmacy Profile Note (Vancomycin Trough Check) 1 note FOLLOW UP ONCE ONE Stop: 01/20/17 11:31 Physical Exam: General: intubated, sedated; moves spontaneously and awakens Head: normocephalic, atraumatic HEENT: no pallor, no icterus, moist mucous membranes Neck: soft, supple, no jvd CVS: normal rate, irregular, no murmur Resp: bilateral air entry, rhales+ RUL area, no wheeze, no acc muscle use Abdomen: soft, nontender, less distended, bowel sounds+ Ext: pulses+, cool ext; RUE edema+, warm ext Skin: beginnings of stage 1 on the sacrum Neuro: intubated, sedated Labs: Laboratory Results - last 24 hr 01/16/17 01/19/17 01/19/17 17:15 10:30 11:45 WBC RBC Hgb Hct MCV MCH MCHC RDW Plt Count MPV Neut % (Auto) Lymph % (Auto) [place] % (Auto) Eos % (Auto) Baso % (Auto) Absolute Neuts (auto) Absolute Lymphs (auto) Absolute Monos (auto) Absolute Eos (auto) Absolute Basos (auto) Absolute Nucleated RBC Nucleated RBC % APTT 54.9 H Patient Temperature Not Reportable ABG pH 7.26 L ABG pCO2 44 ABG pO2 102 H ABG HCO3 19.3 ABG O2 Saturation 98.5 H ABG Base Excess -7.2 L Respiration Rate 30 O2 Delivery Device Ventilator Type 450 Vent Mode Cmv FiO2 20 Inspiratory Time Not Reportable PEEP 8 Pressure Support Not Reportable Pressure Control Not Reportable EPAP Not Reportable IPAP Not Reportable BiPAP Not Reportable Sodium Potassium Chloride Carbon Dioxide Anion Gap BUN Creatinine Est GFR ( Amer) Est GFR (Non-Af Amer) BUN/Creatinine Ratio Glucose Calcium Fluid Source Peritoneal Fluid Albumin 889 01/19/17 01/19/17 01/20/17 17:20 20:30 05:40 WBC RBC Hgb Hct MCV MCH MCHC RDW Plt Count MPV Neut % (Auto) Lymph % (Auto) [place] % (Auto) Eos % (Auto) Baso % (Auto) Absolute Neuts (auto) Absolute Lymphs (auto) Absolute Monos (auto) Absolute Eos (auto) Absolute Basos (auto) Absolute Nucleated RBC Nucleated RBC % APTT 65.0 H Patient Temperature ABG pH ABG pCO2 ABG pO2 ABG HCO3 ABG O2 Saturation ABG Base Excess Respiration Rate O2 Delivery Device Ventilator Type Vent Mode FiO2 Inspiratory Time PEEP Pressure Support Pressure Control EPAP IPAP BiPAP Sodium 141 139 Potassium 4.4 4.1 Chloride 112 H 111 Carbon Dioxide 21 L 22 Anion Gap 8 6 BUN 46 H 46 H Creatinine 1.41 H 1.51 H Est GFR ( Amer) 62.0 57.3 Est GFR (Non-Af Amer) 48.2 44.6 BUN/Creatinine Ratio 32.6 H 30.5 H Glucose 172 H 154 H Calcium 7.7 L 7.8 L Fluid Source Fluid Albumin 01/20/17 01/20/17 05:40 06:25 WBC 8.2 RBC 4.23 Hgb 12.5 L Hct 40 L MCV 94 MCH 30 MCHC 31 RDW 20 H Plt Count 292 MPV 8 Neut % (Auto) 96.5 H Lymph % (Auto) 1.6 L [place] % (Auto) 1.6 Eos % (Auto) 0 Baso % (Auto) 0.3 Absolute Neuts (auto) 8.0 H Absolute Lymphs (auto) 0.1 L Absolute Monos (auto) 0.1 Absolute Eos (auto) 0 Absolute Basos (auto) 0 Absolute Nucleated RBC 0.01 Nucleated RBC % 0.2 APTT Patient Temperature 97 ABG pH 7.28 L ABG pCO2 43 ABG pO2 122 H ABG HCO3 20.0 ABG O2 Saturation 99.0 H ABG Base Excess -6.3 L Respiration Rate 30 O2 Delivery Device vent Ventilator Type 450 Vent Mode Apv cmv FiO2 60 Inspiratory Time Not Reportable PEEP 6 Pressure Support Not Reportable Pressure Control Not Reportable EPAP Not Reportable IPAP Not Reportable BiPAP Not Reportable Sodium Potassium Chloride Carbon Dioxide Anion Gap BUN Creatinine Est GFR ( Amer) Est GFR (Non-Af Amer) BUN/Creatinine Ratio Glucose Calcium Fluid Source Fluid Albumin Imaging: cxr 01/16 - bilateral metastatic lesions+; RUL/RML patchy opacity+ CT chest 01/15 - reviewed - moderate right pleural effusion+, smaller left effusion+, bilateral met lesions in lungs, Ride sided patchy opacity/ consolidation; abdominal ascites+, hepatic lesions+ cxr 01/17 - ett above keya; small/mod bilateal effusions; RUL opacity still present but more noted on left side now; noted metastatic bilateral lesions+, ngt+, right port+ cxr 01/18 - ett above keya; left IJ cathetor in place; port on right; increased multilobar infiltrates+, still RUL patchy consolidation, right effusion+ cxr 01/19 - ett in place, no change from prior, still progressive infiltrates+ cxr 01/20 - ett in place; persistent infiltrats bilaterally, slowly progressive, RUL consolidation still present. 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 Progressive fatigue, abdominal discomfort, distended abdomen. Decreased appetite+. Sputum+. Found febrile. Became hypoxic, tachypneic, found to be in respiratory acidosis, req NIV in ICU. -Acute Hypercapneic and Hypoxic Respiratory Failure, intubated 01/16 -Right upper/middle consolidation/pneumonia + acute aspiration pneumonitis -Right small/moderate pleural effusion -Hyperlactatemia, resolved -EMILE, pre-renal vs septic ATN -hyperkalemia -Coagulopathy, likely sepsis induced; resolved -Septic shock, improved; now severe sepsis still -Abdominal Ascites; s/p paracentesis 01/16 -Encephelopathy, metabolic/toxic -Metastatic [place]-rectal Ca to lung/liver Plan: Neuro- on propofol for sedation, awakens. neurochecks as per protocol. asp prec. fall prec. CVS- septic shock improved, off pressors. cool ext but making urine. EMILE steady/ fluctuating but improved. on d5w for hypernatremia. Bradycardia better, off amio , will hold on any CCB/BB. IV heparin for afib, therap ptt, no bleeding. cont cepfeime and vanco. making urine, positive balance. CVP still 3-, mild dependant edema only and RUE swelling. Resp- Remains intubated. on 60%, peep decreased. rr 30, tv 450, ph still <7.3, seems more metabolic component, nongap acidosis. no resp acidosis but not compensating with increased rate, no wheezing, bilateral breath sounds heard. Progressive infiltrates and no change to consolidation to RUL. cont cefepime and vanco. will add doxy 100 bid. Started solumedrol 60mg iv q8h to see if inflammatory response may slow or if a component of inflammatory pneumonitis may be doing this, so far 2-3 doses no noticeable change. Bronchodilators for rhonchi. Pulm Toilet. Sedation for vent synchrony. Titrate fio2 to keep sat >92% . ID- WBC 8, afebrile. Cover for HCAP and aspiration given metastatic CA, on immunotherapy and hospitalizations. Cefepime (day#6), Vanco (4 days completed, d /c today). d/c vanco, no growth noted. sputum cx with only 1+ yeast. GI- s/p paracentesis with 5L removed, exudative type fluid, culture neg, likely from malignancy. Minimal from NGT. PPI daily. no diarrhea noted. Hg stable. holding tube feeds this morning, will restart at lower rate and reassess. Renal- EMILE, Cr steady in mid 1 range, fluctuates. positive balance. making urine , on d5w infusion for hypernatremia. Septic ATN? d5w to 75cc/hr for hypernatremia and hyperchloremia. no edema. no hyperkalemia noted. ly+. a mild nongap acidosis still persistent. Heme- stable hg. plt stable. heparin infusion for afib. Endo- FS as needed. Musculsk- bedrest for now. pressure ulcer prophylaxis Wounds- none Nutrition- jevity 1.2 @ 20cc/hr to be restarted today DVT prophylaxis: SCDs, heparin iv GI prophylaxis: PPI Central Line: yes, right chest wall port+ Arterial Line: yes Ly Cathetor: yes Disposition: ICU for septic shock, pneumonia, hypercap/hypoxic resp failure Code Status: Full code At length discussion with all the sons at bedside yesterday, discussed current problems, goals of care and plan. they will discuss about DNR status and plan over the weekend, we re-eval based on further response to steroids and abx. They are aware of underlying medical problems. They did state they do agree on a DNR if things were to progress. Total Critical Care time is 40 minutes, excluding procedures/teaching Soto Kaufman MD Final Installer Inspector (Electronically Signed)
[2017-01-20] MEDS ORDERED: Vancomycin Trough Check NOTE FOLLOW UP ONE (11:30)
[2017-01-20] MEDS: DOXYcycline IV* 100 MG in NS 0.9% 250 ML* 250 ML IVPB SCH ×2 (12:14→23:08)
[2017-01-20] MEDS: Pantoprazole IV* 40 MG IV SCH (13:30)
[2017-01-20] MEDS: Heparin DRIP 25,000 UNITS(*) 25,000 UNITS/500 ML BAG IV SCH (20:47)
--- NOTE | 2017-01-20 22:41 | RAD ---
INDICATION: Right upper extremity swelling and warmth. COMPARISON: Comparison is made with a prior study from July 21, 2016. TECHNIQUE: Multiple real-time, color flow and Doppler tracings of the right upper extremity were obtained. FINDINGS: The right jugular vein is patent. There is a central venous catheter within the right subclavian vein and occlusive thrombus present throughout the right subclavian vein age indeterminate. This also appeared nearly occluded on the prior study. The axillary and brachial veins were patent. The cephalic and basilic veins were too small to evaluate. The ulnar and radial veins appear patent. There is slow venous flow throughout the right upper extremity. IMPRESSION: THERE IS OCCLUSIVE DEEP VENOUS THROMBOSIS PRESENT THROUGHOUT THE RIGHT SUBCLAVIAN VEIN AROUND THE CENTRAL VENOUS CATHETER. THIS IS AGE-INDETERMINATE ALTHOUGH APPEARS SIMILAR TO THE PRIOR STUDY.
[2017-01-21] MEDS: Cefepime(*) 2 GM in NS 0.9% 50 ML* 50 ML IVPB SCH (01:23)
[2017-01-21] MEDS: Chlorhexidine MOUTHWASH 0.12%* 15 ML UDC TOPICAL SCH ×2 (03:44→06:17)
[2017-01-21] MEDS ORDERED: Morphine INJ* 2 MG/ML 1 ML SYRINGE ONE (03:52)
[2017-01-21] MEDS ORDERED: Morphine INJ* 2 MG/ML 1 ML SYRINGE IV ONE (04:00)
[2017-01-21] MEDS: Propofol* 100 ML IV SCH (04:06)
[2017-01-21] MEDS: methylPREDNISolone SOD 40 MG* 1 ML VIAL IV SCH (04:37)
[2017-01-21 05:56] LABS: Hematocrit 39 % (42-52); Hemoglobin 12.6 g/dl (14.0-18.0); Mean Corpuscular HGB Conc 32 g/dl (31-36); Mean Corpuscular Hemoglobin 31 pg (27-31); Mean Corpuscular Volume 95 fL (80-94); Mean Platelet Volume 8 um3 (7.4-10.4); Red Blood Count 4.14 10^6/ul (4.0-5.4); Red Cell Distribution Width 20 % (10.5-15); White Blood Count 9.7 10^3/ul (3.5-10.8)
[2017-01-21 06:00] LABS: FIO2 45; Patient Temp ABG 97.8; Resp Rate 30; Ventilator Volume 450
[2017-01-21] MEDS ORDERED: Levothyroxine TAB* 25 MCG TAB PO SCH (06:00)
[2017-01-21 06:03] LABS: PCO2 Arterial 39 mmHg (35-45)
[2017-01-21] MEDS: Acetaminophen TAB* 325 MG PO PRN (06:06)
[2017-01-21 06:25] LABS: BUN/Creatinine Ratio 29.9 (8-20); Calcium 7.7 mg/dL (8.6-10.3); EGFR Non-African American 39.7 (>60); Potassium 3.9 mmol/L (3.5-5.0)
--- NOTE | 2017-01-21 08:03 | RAD ---
INDICATION: Infiltrates. COMPARISON: Comparison is made with a prior chest x-ray study from January 20, 2017. TECHNIQUE: A portable view of the chest was obtained. FINDINGS: Note is made of bilateral central venous catheters, endotracheal and nasogastric tubes which appear to demonstrate normal course. The heart is within normal limits in size. There are multiple bilateral pulmonary nodules and bilateral infiltrates which appear unchanged significantly. There are also small bilateral pleural effusions which are unchanged. IMPRESSION: BILATERAL PULMONARY NODULES, INFILTRATES AND SMALL BILATERAL PLEURAL EFFUSIONS, UNCHANGED.
[2017-01-21] MEDS: Amiodarone TAB* 200 MG PO SCH (09:44)
--- NOTE | 2017-01-21 09:58 | PN ---
Progress Note - Progress Note Date of Service: 01/21/17 Note: Progress Note - Critical Care 24 hour events: -less bradycardiac overnight -remains on vent, follows commands on less sedation -no hypotension; making urine, minimal bowel movements. Tele: sinus, bradycardia at times Vitals: Vital Signs Temp 97.5 F 01/21/17 07:00 Pulse 63 01/21/17 07:00 Resp 30 01/21/17 07:00 BP 110/78 01/21/17 02:07 Pulse Ox 100 01/21/17 07:00 Intake & Output 01/20/17 01/21/17 01/21/17 18:59 06:59 18:59 Intake Total 1108 1913.3 Output Total 805 535 Balance 303 1378.3 Weight 161 lb 6.054 oz Intake: IV Fluids 492 961 D5W 492 961 IVPB 289 398 D5W 289 398 Medicated IV 106 172.3 CC - Propofol/Diprivan 106 172.3 Heparin 161 352 Tube Feeding Flush Amount 60 NG Tube Irrigate Amount 30 Output: Urine 55 Ly 300 535 Tube Feeding Residual 450 Amount Wasted O2/Vent: AC 30/450/+6/45%, sat 98% Infusions: heparin iv, d5w @ 75cc/hour, propofol Current Medications: Acetaminophen (Tylenol Tab*) 650 mg PO Q6H PRN PRN Reason: FEVER Last Admin: 01/21/17 06:06 Dose: 650 mg Albuterol (Ventolin 2.5 Mg/3 Ml Neb.[place]*) 2.5 mg INH Q2H PRN PRN Reason: SOB/WHEEZING Last Admin: 01/19/17 22:10 Dose: 2.5 mg Amiodarone HCl (Cordarone Tab*) 100 mg PO DAILY [facility] Last Admin: 01/21/17 09:44 Dose: 100 mg Benzonatate (Tessalon Cap*) 100 mg PO Q8H PRN PRN Reason: COUGH Last Admin: 01/16/17 04:11 Dose: 100 mg Chlorhexidine Gluconate (Peridex Mouth Wash 0.12%*) 15 ml TOPICAL Q4H [facility] Last Admin: 01/21/17 06:17 Dose: 15 ml Heparin Sodium (Porcine) (Heparin Vial(*)) 0 units IV .PER PROTOCOL [facility] PRN Reason: Protocol Cefepime HCl 2 gm/ Sodium (Chloride) 50 mls @ 100 mls/hr IVPB Q12H [facility] Last Admin: 01/21/17 01:23 Dose: 100 mls/hr Propofol (Diprivan*) 100 mls @ 12.312 mls/hr IV .(Initial Rate) PJ; 30 MCG/KG/ MIN PRN Reason: Protocol Last Admin: 01/21/17 04:06 Dose: 12.312 mls/hr Heparin Sodium/Dextrose (Heparin Drip 25,000 Units(*)) 25,000 units in 500 mls @ 0 mls/hr IV .NO INITIAL BOLUS PJ; As Directed PRN Reason: Protocol Last Admin: 01/20/17 20:47 Dose: 20.5 mls/hr Doxycycline Hyclate 100 mg/ (Sodium Chloride) 250 mls @ 250 mls/hr IVPB Q12H [facility] Last Admin: 01/20/17 23:08 Dose: 250 mls/hr Sodium Bicarbonate 75 meq/ (Sodium Chloride) 1,075 mls @ 75 mls/hr IVPB Q14H [facility] Levothyroxine Sodium (Synthroid Tab*) 25 mcg PO DAILY@0600 [facility] Last Admin: 01/21/17 07:26 Dose: 25 mcg Methylprednisolone Sodium Succinate (Solu-Medrol 40 Mg) 60 mg IV Q8H [facility] Last Admin: 01/21/17 04:37 Dose: 60 mg Ondansetron HCl (Zofran Inj*) 4 mg IV Q4H PRN PRN Reason: NAUSEA/VOMITING Pantoprazole Sodium (Protonix Iv*) 40 mg IV Q24H [facility] Last Admin: 01/20/17 13:30 Dose: 40 mg Physical Exam: General: intubated, sedated; moves spontaneously and awakens Head: normocephalic, atraumatic HEENT: no pallor, no icterus, moist mucous membranes Neck: soft, supple, no jvd CVS: normal rate, regular, no murmur Resp: bilateral air entry, rhales+ RUL area, no wheeze, no acc muscle use Abdomen: soft, nontender, more tense today, maybe slightly more distended, BS diminished. Ext: pulses+, cool ext; RUE edema+, warm ext Skin: beginnings of stage 1 on the sacrum Neuro: intubated, sedated Labs: Laboratory Results - last 24 hr 01/20/17 01/21/17 01/21/17 20:20 05:40 05:40 WBC RBC Hgb Hct MCV MCH MCHC RDW Plt Count MPV Neut % (Auto) Lymph % (Auto) [place] % (Auto) Eos % (Auto) Baso % (Auto) Absolute Neuts (auto) Absolute Lymphs (auto) Absolute Monos (auto) Absolute Eos (auto) Absolute Basos (auto) Absolute Nucleated RBC Nucleated RBC % APTT 70.8 H Patient Temperature 97.8 ABG pH 7.30 L ABG pCO2 39 ABG pO2 115 H ABG HCO3 19.7 ABG O2 Saturation 98.7 H ABG Base Excess -6.7 L Respiration Rate 30 Ventilator Type 450 Vent Mode cmv FiO2 45 Inspiratory Time Not Reportable PEEP 6 Pressure Support Not Reportable Pressure Control Not Reportable EPAP Not Reportable IPAP Not Reportable BiPAP Not Reportable Sodium 133 Potassium 3.9 Chloride 109 Carbon Dioxide 20 L Anion Gap 4 BUN 50 H Creatinine 1.67 H Est GFR ( Amer) 51.0 Est GFR (Non-Af Amer) 39.7 BUN/Creatinine Ratio 29.9 H Glucose 130 H Calcium 7.7 L 01/21/17 05:40 WBC 9.7 RBC 4.14 Hgb 12.6 L Hct 39 L MCV 95 H MCH 31 MCHC 32 RDW 20 H Plt Count 310 MPV 8 Neut % (Auto) 93.0 H Lymph % (Auto) 1.9 L [place] % (Auto) 4.9 Eos % (Auto) 0 Baso % (Auto) 0.2 Absolute Neuts (auto) 9.1 H Absolute Lymphs (auto) 0.2 L Absolute Monos (auto) 0.5 Absolute Eos (auto) 0 Absolute Basos (auto) 0 Absolute Nucleated RBC 0.01 Nucleated RBC % 0.2 APTT Patient Temperature ABG pH ABG pCO2 ABG pO2 ABG HCO3 ABG O2 Saturation ABG Base Excess Respiration Rate Ventilator Type Vent Mode FiO2 Inspiratory Time PEEP Pressure Support Pressure Control EPAP IPAP BiPAP Sodium Potassium Chloride Carbon Dioxide Anion Gap BUN Creatinine Est GFR ( Amer) Est GFR (Non-Af Amer) BUN/Creatinine Ratio Glucose Calcium Imaging: cxr 01/16 - bilateral metastatic lesions+; RUL/RML patchy opacity+ CT chest 01/15 - reviewed - moderate right pleural effusion+, smaller left effusion+, bilateral met lesions in lungs, Ride sided patchy opacity/ consolidation; abdominal ascites+, hepatic lesions+ cxr 01/17 - ett above keya; small/mod bilateal effusions; RUL opacity still present but more noted on left side now; noted metastatic bilateral lesions+, ngt+, right port+ cxr 01/18 - ett above keya; left IJ cathetor in place; port on right; increased multilobar infiltrates+, still RUL patchy consolidation, right effusion+ cxr 01/19 - ett in place, no change from prior, still progressive infiltrates+ cxr 01/20 - ett in place; persistent infiltrats bilaterally, slowly progressive, RUL consolidation still present. 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 Progressive fatigue, abdominal discomfort, distended abdomen. Decreased appetite+. Sputum+. Found febrile. Became hypoxic, tachypneic, found to be in respiratory acidosis, req NIV in ICU. -Acute Hypercapneic and Hypoxic Respiratory Failure, intubated 01/16 -Right upper/middle consolidation/pneumonia + acute aspiration pneumonitis -Right small/moderate pleural effusion -Hyperlactatemia, resolved -EMILE, pre-renal vs septic ATN -hyperkalemia -Coagulopathy, likely sepsis induced; resolved -Septic shock, improved; now severe sepsis still -Abdominal Ascites; s/p paracentesis 01/16 -Encephelopathy, metabolic/toxic -Metastatic [place]-rectal Ca to lung/liver Plan: Neuro- on propofol for sedation, awakens. neurochecks as per protocol. asp prec. fall prec. CVS- remains off. cool ext. mild dependant edema only. remains sinus rhythm, jeffery 50-60s, hemodyn stable. off amio iv. Heparin IV for Afib and now RUE axillary occ dvt, protocol for titrating to therap ptt. making urine, change ivf to sodium bic 75meq in 1/2 ns. cont cepfeime and doxy, no growth in cultures. May likely be able to get arterial line out today, and need daily abg. Resp- Remains intubated. on 45%, peep 6. rr 30, tv 450, ph still 7.3 with pco < 40; more nongap metabolic acidosis as underlying etiology, with now lung disease and inability to completely ventilate with this volume. no wheezing, bilateral breath sounds heard. Progressive infiltrates and no change to consolidation to RUL/RML. solumedrol 60mg q8h but no change noted, suspected a component of pneumonitis? h/o immunotherapy. likely will d/c steroids tomorrow. cont cefepime and doxy, will total 7 days of tx and observe. Bronchodilators for rhonchi. Pulm Toilet. Sedation for vent synchrony. Titrate fio2 to keep sat >92%. ID- WBC normal, afebrile. Cover for HCAP and aspiration given metastatic CA, on immunotherapy and hospitalizations. Cefepime (day#7), Vanco (4 days completed, discontinued). doxycycline 100mg bid (day#2) GI- s/p paracentesis with 5L removed, exudative type fluid, culture neg, likely from malignancy. Mildy distended abdomen, check KUB today. hold feeds today too. Minimal from NGT. PPI daily. no diarrhea noted. Hg stable. Renal- EMILE, Cr increased again, BUN elevated, cont IVF. no new medications but steroids added. unlikely cefepime. positive balance. making urine; nongap acidosis, nonhyperchloremic. changed to sodium bicarb in 1/2 ns, trial for 24 hours and observe. Septic ATN? no edema. K normal now. ly+. Heme- stable hg. plt stable. heparin infusion for afib/RUE axillary dvt Endo- FS as needed. Musculsk- bedrest for now. pressure ulcer prophylaxis. keep RUE elevated for edema 2/2 dvt, avoid bp checks on that arm, noted RU chest port+ Wounds- none Nutrition- held DVT prophylaxis: SCDs, heparin iv GI prophylaxis: PPI Central Line: yes, right chest wall port+ Arterial Line: yes Ly Cathetor: yes Disposition: ICU for septic shock, pneumonia, hypercap/hypoxic resp failure Code Status: Full code At length discussion with all the sons at bedside 01/19 discussed current problems, goals of care and plan. they will discuss about DNR status and plan over the weekend, we re-eval based on further response to steroids and abx. They are aware of underlying medical problems. They did state they do agree on a DNR if things were to progress. Will discuss with family today about current progress. Total Critical Care time is 40 minutes, excluding procedures/teaching Soto Kaufman MD Geophysical Drafter (Electronically Signed)
[2017-01-21] MEDS ORDERED: Sodium Bicarbonate 8.4% IV* 75 MEQ in NS 0.45% 1000 ML BAG* 1,000 ML IVPB SCH (10:00)
--- NOTE | 2017-01-21 10:58 | RAD ---
INDICATION: Abdominal distention. COMPARISON: Comparison is made with a prior CT of the abdomen and pelvis from January 16, 2017. TECHNIQUE: A single frontal supine film of the abdomen was obtained portably.. FINDINGS: Air is seen within the small bowel and colon. There is a mildly dilated loop of bowel in the left upper quadrant likely representing small bowel. The distal portion of a nasogastric tube is seen which demonstrates normal course. There is a biliary stent which projects in the right upper quadrant and a bladder catheter which projects over the pelvis. IMPRESSION: POSSIBLE PARTIAL SMALL BOWEL OBSTRUCTION. RECOMMEND FOLLOW-UP.
[2017-01-21] MEDS: Pantoprazole IV* 40 MG IV SCH (11:09)
[2017-01-21] MEDS: DOXYcycline IV* 100 MG in NS 0.9% 250 ML* 250 ML IVPB SCH (11:09)
[2017-01-21] MEDS: fentaNYL* 50 MCG/ML 2 ML VIAL (100 MCG VIAL) IV SLOW PU PRN ×2 (12:27→13:32)
--- NOTE | 2017-01-21 12:39 | PN ---
Progress Note - Progress Note Date of Service: 01/21/17 Note: Family Discussion, Compassionate Weaning note At length discussion with Sons of patient at bedside, including HCP Roberto. i've discussed all the options of medical management, all his current medical problems, his respiratory failure and vent dependant status with ongoing progressive RUL/RML infiltrates, his renal insufficiency, abdominal ascites. He is currently not showing large improvement in respiratory status to be able to be extubated. HE has low grade acidosis. Currently being treated for pneumonia as wwell as possible pneumonitis with steroids. We went over possible care plans, aggressive to comfort care. Initial discussions were to re-eval in coming days with likelihood that if no improvement were to occur, they would not want him progressing to further resp failure and hypoxia and be vent dependant. He is not a candidate for a trach now due to ongoing acute medical problems. Patient has been off of sedation, and able to knod to questions when they Sons talk to him. He has answered with a knod when they ask if he wants the breathing tube out. He knods when they ask if he doesnt want to continue in this state more. He motions he does not want to continue more. They all have asked and all agree to his wishes. He has a living will in chart that was brought that also states that if he were to decline and requires artificial support he would not want that pursued. They have decided that they want to follow his wishes and compassionately take him off the ventilator. They understand that doing so may compromise his breathing and he may be in distress or discomfort. Unuclear how long he may last in that state, minutes to hours or longer. I discussed that we can manage pain and distress with morphine. His current state is progressive with underlying metastatic colo-rectal Ca. He has progressed to Multiorgan dysfunction, just recovered from septic shock. I agree with the the decision they are making given his underlying comorbidities and acute respiratory failure at this time. His quality of life would be poor and he is most likley not to recover from this respiratory failure. We will follow families wishes. Compassionate weaning from ventilator will be done, with comfort care ongoing. Soto Kaufman [employer] (electronically signed)
[2017-01-21] MEDS ORDERED: Morphine INJ* 2 MG/ML 1 ML SYRINGE IV PRN (12:40)
--- NOTE | 2017-01-21 12:45 | PN ---
Progress Note - Progress Note Date of Service: 01/21/17 Note: As per living will and Sons, Patient is DNR/DNI now. MOLST has been signed in chart.
[2017-01-21] MEDS ORDERED: LORazepam INJ* 2 MG/ML 1 ML VIAL ONE (13:30)
[2017-01-21] MEDS ORDERED: HYDROmorphone* 1 MG/ML 1 ML SYR ONE (13:30)
[2017-01-21] MEDS ORDERED: HYDROmorphone* 1 MG/ML 1 ML SYR IV SLOW PU PRN (14:01)
[2017-01-21] MEDS ORDERED: LORazepam INJ* 2 MG/ML 1 ML VIAL IV PUSH PRN (14:02)
--- NOTE | 2017-01-21 14:04 | PN ---
Progress Note - Progress Note Date of Service: 01/21/17 Note: extubated to RA as per family and pt wishes Ativan IV and dilaudid IV for respiratory distress Family at bedside CUrrent o2 sats in 70s; more comfortable with ativan and dilaudid iv push for distress. cont prn q1h as needed. 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
[2017-01-21 15:36] VITALS: BP 159/92
--- NOTE | 2017-01-21 16:02 | DS ---
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 Progressive fatigue, abdominal discomfort, distended abdomen. Decreased appetite+. Sputum+. No chest pain/diarrhea/n/v/palpitations. He is currently on immunotherapy as per oncology [employer] ADMINISTRATOR giving me history. Initial ER vitals 101.4F, HR 95, RR 20, BP 148/79, sat 95%. Patient was admitted for suspected pneumonia. A CT of the chest as well as Chest xray demonstrated progressive pulmonary metastatic lesions as well as possible consolidation/ confluence in the right middle/upper lobes, as well as moderate Right pleural effusion greater than left and large amount of abdominal ascites. He was started on antibiotics, given IVF. While admitted to the medical floor, patient developed respiratory distress, tachypnea, hypoxia to 70s, becoming more lethargic. He was placed on oxygen and brought to ICU. He was placed on NIV. Initial ABG done showing respiratory acidosis, with mild metabolic acidosis. Repeat CXR with RUL/RML patchy opacity. An abdominal paracentesis was performed and 5L of serous fluid drained which helped respiratory status. Overnight he developed profuse vomitting, with some degree of aspiration, respiratory failure requiring intubation. He subsequently developed worsening severe sepsis and septic shock. Over the course of 5 days, Acute kidney Injury was slowly improving but not to normal baseline. His lungs demonstrated progressive/ unchanged infiltrates/consolidation. Cultures were negative. He weaned off Vasopressor support but remained in respiratory failure with a moderate degree of hypoxia, poorly compensated metabolic acidosis due to poor ventilation. Atrial fibrillation was an issue one of the nights but controlled with amiodarone infusion. His children (5 sons) have all visited and after at length discussions about his active medical problems as well as underlying metastatic disease, they decided on DNR status. Once sedation was weaned and patient was more lucid, they had bedside discussions with patient and they decided they would go agree with his wishes in his living will as well as his gestures when they asked about remaining on ventilator. Sons decided to compassionately wean patient from ventilator and keep patient on comfort care pathway. He was extubated 01/21/2017. Patient pronounced with family at bedside at 1750 on 2016. Procedures/Imaging: Computer Tomography of the chest; Abdominal Paracentesis Laboratory/Data: see chart Discharge Medications: none Diet: none Activity: none Condition upon discharge: / 01/21/2017 at 1750 Disposition: / at 1750 on 01/21/2017 Code Status: DNR/DNI Total Discharge time <30minutes Soto Kaufman MD [employer] (Electronically Signed)
--- NOTE | 2017-01-21 18:03 | PN ---
Progress Note - Progress Note Date of Service: 01/21/17 Note: No further arterial blood pressure waveform; ventricular escape beats occasionally, porgressing to asystole. Patient apneic, unresponsive. Patient pronounced at 1750 on 01/21/2017 with family at bedside. Soto Kaufman [employer]
== END 2017-01-21 17:50 | disposition expired | DRG 870 ==
LOC: ED 22:16 → MED 01-16 02:15 → ICU 01-16 12:04
PROVIDERS: ADMIT Internal Medicine Hematology & Oncology; ATTEND Internal Medicine Critical Care Medicine
PROC: 5A1955Z Respiratory Ventilation, Greater than 96 Consecutive Hours (ICD-10-PCS; principal; 2017-01-16)
PROC: 0BH17EZ Insertion of Endotracheal Airway into Trachea, Via Natural or Artificial Opening (ICD-10-PCS; 2017-01-16)
PROC: 0W9G3ZZ Drainage of Peritoneal Cavity, Percutaneous Approach (ICD-10-PCS; 2017-01-16)
PROC: 0DH67UZ Insertion of Feeding Device into Stomach, Via Natural or Artificial Opening (ICD-10-PCS; 2017-01-17)
PROC: 3E033XZ Introduction of Vasopressor into Peripheral Vein, Percutaneous Approach (ICD-10-PCS; 2017-01-17)
PROC: 0T9B70Z Drainage of Bladder with Drainage Device, Via Natural or Artificial Opening (ICD-10-PCS; 2017-01-17)
PROC: 05HN33Z Insertion of Infusion Device into Left Internal Jugular Vein, Percutaneous Approach (ICD-10-PCS; 2017-01-17)
PROC: B544ZZA Ultrasonography of Left Jugular Veins, Guidance (ICD-10-PCS; 2017-01-17)
PROC: 03HB33Z Insertion of Infusion Device into Right Radial Artery, Percutaneous Approach (ICD-10-PCS; 2017-01-17)
DX: A41.9 Sepsis, unspecified organism (principal); J69.0 Pneumonitis due to inhalation of food and vomit; R65.21 Severe sepsis with septic shock; G92 Toxic encephalopathy; J90 Pleural effusion, not elsewhere classified; J18.9 Pneumonia, unspecified organism; N17.9 Acute kidney failure, unspecified; J96.01 Acute respiratory failure with hypoxia; J96.02 Acute respiratory failure with hypercapnia; E87.4 Mixed disorder of acid-base balance; I11.0 Hypertensive heart disease with heart failure; E87.0 Hyperosmolality and hypernatremia; C78.00 Secondary malignant neoplasm of unspecified lung; D68.8 Other specified coagulation defects; R18.8 Other ascites; I50.30 Unspecified diastolic (congestive) heart failure; C17.9 Malignant neoplasm of small intestine, unspecified; C78.5 Secondary malignant neoplasm of large intestine and rectum; C78.7 Secondary malignant neoplasm of liver and intrahepatic bile duct; E03.9 Hypothyroidism, unspecified; E87.5 Hyperkalemia; R11.14 Bilious vomiting; E87.8 Other disorders of electrolyte and fluid balance, not elsewhere classified; R00.1 Bradycardia, unspecified; Z66 Do not resuscitate; R40.2412 Glasgow coma scale score 13-15, at arrival to emergency department; I48.91 Unspecified atrial fibrillation; N40.0 Benign prostatic hyperplasia without lower urinary tract symptoms; Z85.828 Personal history of other malignant neoplasm of skin; Z92.21 Personal history of antineoplastic chemotherapy; Z86.19 Personal history of other infectious and parasitic diseases; Z80.42 Family history of malignant neoplasm of prostate; Z82.49 Family history of ischemic heart disease and other diseases of the circulatory system; Z88.8 Allergy status to other drugs, medicaments and biological substances; Z95.0 Presence of cardiac pacemaker; Z82.3 Family history of stroke
CPT/HCPCS: 36415; 36600; 71010; 71250; 74000; 74176; 76705; 80048; 80053; 80202; 81003; 81015; 82042; 82140; 82150; 82550; 82803; 82945; 83605; 83615; 83690; 83735; 83986; 84157; 84484; 85025; 85610; 85730; 86850; 86900; 86901; 87040; 87070; 87086; 87205; 87641; 89051; 93005; 94002; 94003; 94640; 94660; 94760; 94761; 99212; 99223; 99231; A9270-GY; G0463; J0282; J0330; J0692; J1100; J1170; J2060; J2270; J2405; J2543; J2704; J2920; J3010; J3370; P9045